=== PATIENT | male | born 1960 | race Hispanic/Latino ===

== ENCOUNTER 2017-10-12 16:02 | Inpatient (IN) | payer MEDICAID, OTHER ==
[~2017-10-12] VITALS: Ht 160 cm; Wt 93.1 kg
[~2017-10-12 16:02] MED LIST: ACETAMINOPHEN325 M1 PO; AZILECT1 MG PO; CARBIDOPA-LEVO1 EAC1 PO; DIOVAN320 MG PO; ESIDRIX25 MG PO; Multivitamins/Minerals PO; NYAMYC15 GM TOP; REQUIP1 MG PO; ROPINIROLE HCL1 MG PO; SINEMET 25-1001 EACH PO
[2017-10-12] MEDS ORDERED: SODIUM CHLORIDE 0.9% 1000ML 1,000 ML ONE (16:58)
[2017-10-12] MEDS ORDERED: AZILECT1 MG PO (17:00)
[2017-10-12] MEDS ORDERED: SODIUM CHLORIDE 0.9% 1000ML 1,000 ML IV SCH (17:00)
[2017-10-12] MEDS ORDERED: RYTARY PO (17:00)
--- NOTE | 2017-10-12 17:02 | Diagnostic Imaging Report ---
Examination: CT BRAIN WITHOUT CONTRAST History:Left-sided weakness. Evaluate for stroke. Comparison studies:None Technique: Axial images were obtained from the skull base to the vertex. Coronal and sagittal images reconstructed from the axial data. Intravenous contrast: None Findings: Scalp: No abnormalities. Bones: No fractures, blastic or lytic lesions. Brain sulci: Appropriate for age. Ventricles: Normal in size and configuration. No hydrocephalus. Extra-axial space: No abnormalities. Parenchyma: No masses, hemorrhage, or acute or chronic cortical based vascular insults. Sellar/suprasellar region: No abnormalities. Craniocervical junction: Patent foramen magnum. No Chiari one malformation. Incidental findings: None. Impression: No intracranial abnormalities. Signed by: Dr. Melva Dupree M.D. on 10/12/2017 4:59 PM
[2017-10-12 17:06] LABS: INR 0.92; PROTHROMBIN TIME 12.8 seconds (11.9-14.5)
[2017-10-12] MEDS ORDERED: LABETALOL HCL IV 5 MG/ML 20ML MDV IV STA (17:08)
[2017-10-12 17:17] LABS: ALANINE AMINOTRANSFERASE 13 IU/L (0-55); ALBUMIN 4.1 g/dL (3.5-5.0); ALBUMIN/GLOBULIN RATIO 0.9 (0.8-2.0); ALKALINE PHOSPHATASE 94 IU/L (40-150); BLOOD UREA NITROGEN 28 mg/dL (7-26); BUN/CREATININE RATIO 28 (6-25); CARBON DIOXIDE 25 mmol/L (22-29); CHLORIDE 107 mmol/L (98-107); CREATINE KINASE 290 IU/L (30-200); EST GLOMERULAR FILTRATION RATE > 60 ML/MIN (60-); GLUCOSE 126 mg/dL (74-118); SODIUM 142 mmol/L (136-145)
[2017-10-12 17:23] LABS: TROPONIN I 0.021 ng/mL (0-0.300)
[2017-10-12 17:25] LABS: BASOPHILS # (AUTO) 0.1 (0.0-0.1); BASOPHILS % 0.4 % (0.0-1.0); EOSINOPHILS % 0.2 % (0.0-6.0); HEMATOCRIT 48.9 % (38.2-49.6); HEMOGLOBIN 16.2 g/dL (14.0-18.0); LYMPHOCYTES # (AUTO) 1.3 (1.0-3.2); LYMPHOCYTES % 9.3 % (18.0-39.1); MEAN CORPUSCULAR HEMOGLOBIN 29.5 pg (28-32); MEAN CORPUSCULAR HGB CONC 33.1 g/dL (31-35); MEAN CORPUSCULAR VOLUME 88.9 fL (81-99); MONOCYTES # (AUTO) 1.2 (0.2-0.8); MONOCYTES % 9.2 % (4.4-11.3); NEUTROPHILS # (AUTO) 10.9 (2.1-6.9); NEUTROPHILS % 80.6 % (38.7-80.0); PLATELET COUNT 290 x10e3/uL (140-360)
[2017-10-12] MEDS ORDERED: ASPIRIN 81 MG CHEW TAB PO ONE (18:00)
[2017-10-12] MEDS: LABETALOL HCL IV 5 MG/ML 20ML MDV IV PRN (22:44)
[2017-10-13] VITALS (8 sets, daily range): BP systolic 150–176; BP diastolic 106–129
[2017-10-13] MEDS ORDERED: VALSARTAN 320 MG PO SCH (09:00)
[2017-10-13] MEDS: RASAGILINE 1 MG TAB PO SCH (09:10)
[2017-10-13] MEDS: ROPINIROLE HCL 1 MG TAB PO SCH ×3 (09:10→23:08)
[2017-10-13 09:23] LABS: BASOPHILS # (AUTO) 0.1 (0.0-0.1); BASOPHILS % 0.8 % (0.0-1.0); EOSINOPHILS # (AUTO) 0.4 (0.0-0.4); EOSINOPHILS % 4.7 % (0.0-6.0); HEMATOCRIT 45.6 % (38.2-49.6); HEMOGLOBIN 14.7 g/dL (14.0-18.0); LYMPHOCYTES # (AUTO) 1.6 (1.0-3.2); LYMPHOCYTES % 17.4 % (18.0-39.1); MEAN CORPUSCULAR HEMOGLOBIN 29.2 pg (28-32); MEAN CORPUSCULAR HGB CONC 32.2 g/dL (31-35); MEAN CORPUSCULAR VOLUME 90.7 fL (81-99); MONOCYTES # (AUTO) 0.9 (0.2-0.8); MONOCYTES % 9.5 % (4.4-11.3); NEUTROPHILS % 67.4 % (38.7-80.0); PLATELET COUNT 240 x10e3/uL (140-360); RED BLOOD COUNT 5.03 x10e6/uL (4.3-5.7); RED CELL DISTRIBUTION WIDTH 13.2 % (11.7-14.4)
[2017-10-13 09:41] LABS: ANION GAP 12.7 mmol/L (8-16); BLOOD UREA NITROGEN 19 mg/dL (7-26); BUN/CREATININE RATIO 23 (6-25); CALCIUM 8.8 mg/dL (8.4-10.2); CARBON DIOXIDE 25 mmol/L (22-29); CHLORIDE 108 mmol/L (98-107); CHOL/HDL RATIO 3.4 (3.9-4.7); CHOLESTEROL 165 MD/DL (0-199); CREATININE, SERUM 0.81 mg/dL (0.72-1.25); EST GLOMERULAR FILTRATION RATE > 60 ML/MIN (60-); GLUCOSE 169 mg/dL (74-118); HDL CHOLESTEROL 48 MG/DL (40-60); LDL CHOLESTEROL 107 MG/DL (60-130); MAGNESIUM 1.8 MG/DL (1.3-2.1); POTASSIUM 3.7 mmol/L (3.5-5.1); SODIUM 142 mmol/L (136-145); TRIGLYCERIDES 50 MG/DL (0-149)
[2017-10-13 10:01] LABS: THYROID STIMULATING HORMONE 0.639 uIU/mL (0.350-4.940)
[2017-10-13] MEDS: HYDROCHLOROTHIAZIDE 25 MG TAB PO SCH (10:55)
[2017-10-13] MEDS: VALSARTAN 160 MG TAB PO SCH (10:55)
[2017-10-13] MEDS: CARBIDOPA/LEVODOPA 25/100 TAB PO SCH ×2 (10:55→17:53)
[2017-10-13] MEDS: ACETAMINOPHEN 325 MG TAB PO PRN ×2 (10:56→20:00)
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
[2017-10-13] MEDS: CARVEDILOL 12.5 MG TAB PO SCH ×2 (14:00→17:53)
[2017-10-13] MEDS: FAMOTIDINE 20 MG TAB PO SCH ×2 (14:20→17:53)
--- NOTE | 2017-10-13 16:47 | Diagnostic Imaging Report ---
Exam: History: Weakness, left-sided facial droop Comparison studies: Head CTs of 10/12/2017 and 06/30/2017 Technique: Sagittal T2; axial DWI, FLAIR, MPGR, T1, Coronal T2 FLAIR. Intravenous contrast: None Findings: Limitations: There is mild distortion due to susceptibility artifact on the more inferior cuts of the axial DWI sequence.. Scalp: Normal in signal. No masses. Bone marrow: Normal in signal intensity. Brain sulci: Appropriate for age. Ventricles: Normal in size. No hydrocephalus. Extra axial spaces: Incidental mildly prominent extra-axial space of CSF density along the right postcentral sulcus may represent incidental arachnoid cyst which does not result in significant mass effect or variant prominent sulcus. No other mass. No hemorrhage. No hemorrhage. Parenchyma: A few scattered T2 FLAIR hyperintense foci in the supratentorial white matter are nonspecific but most compatible with chronic small vessel ischemic changes. No mass or hemorrhage. No gross abnormal restricted diffusion is seen on the DWI sequence which is somewhat limited by susceptibility artifact. Suprasellar region: No abnormalities. Craniocervical junction: Patent foramen magnum. No Chiari Chiari reformation. Vessels: Normal flow-voids in the arteries and sinuses. IMPRESSION: 1. No acute intracranial abnormalities. 2. Mild supratentorial chronic microvascular ischemic changes. Signed by: Dr. Christian Pinto M.D. on 10/13/2017 4:43 PM
[2017-10-13] MEDS: ENOXAPARIN SOD INJ 40 MG/0.4 ML SYR SC SCH (17:53)
[2017-10-13 18:39] LABS: BILIRUBIN,URINE NEGATIVE (NEGATIVE); KETONES,URINE NEGATIVE (NEGATIVE); LEUKOCYTE ESTERASE ,URINE NEGATIVE (NEGATIVE); NITRITE,URINE NEGATIVE (NEGATIVE); PROTEIN,URINE DIPSTICK NEGATIVE (NEGATIVE); URINE UROBILINOGEN 0.2 mg/dL (0.2 - 1)
[2017-10-13 18:42] LABS: CLARITY,URINE SL CLOUDY (CLEAR); COLOR,URINE YELLOW (YELLOW)
[2017-10-13 18:57] LABS: EPITHELIAL CELLS,URINE FEW /LPF; RBC,URINE 0-5 /HPF (0-5); YEAST,URINE RARE
[2017-10-13] MEDS: LABETALOL HCL IV 5 MG/ML 20ML MDV IV PRN (19:25)
[2017-10-13] MEDS ORDERED: ONDANSETRON HCL INJ 2 MG/ML VIAL IV PRN (21:00)
[2017-10-13] MEDS: MORPHINE SULFATE 4 MG/ML SYR IV PRN (21:06)
[2017-10-14] VITALS (22 sets, daily range): BP systolic 113–196; BP diastolic 78–129
[2017-10-14] MEDS: HYDROCODONE/APAP 7.5MG-325MG 1 EA TAB PO PRN ×2 (00:02→05:57)
[2017-10-14] MEDS: FAMOTIDINE 20 MG TAB PO SCH ×2 (05:57→16:33)
[2017-10-14] MEDS: ROPINIROLE HCL 1 MG TAB PO SCH ×3 (05:57→17:21)
[2017-10-14 06:48] LABS: BASOPHILS # (AUTO) 0.1 (0.0-0.1); BASOPHILS % 0.9 % (0.0-1.0); HEMATOCRIT 45.4 % (38.2-49.6); HEMOGLOBIN 14.8 g/dL (14.0-18.0); LYMPHOCYTES # (AUTO) 2.2 (1.0-3.2); MEAN CORPUSCULAR HEMOGLOBIN 29.5 pg (28-32); MEAN CORPUSCULAR HGB CONC 32.6 g/dL (31-35); MEAN CORPUSCULAR VOLUME 90.4 fL (81-99); MONOCYTES # (AUTO) 1.1 (0.2-0.8); MONOCYTES % 10.9 % (4.4-11.3); NEUTROPHILS # (AUTO) 5.5 (2.1-6.9); NEUTROPHILS % 55.9 % (38.7-80.0); PLATELET COUNT 264 x10e3/uL (140-360); RED BLOOD COUNT 5.02 x10e6/uL (4.3-5.7); RED CELL DISTRIBUTION WIDTH 13.2 % (11.7-14.4)
[2017-10-14 07:12] LABS: ANION GAP 11.6 mmol/L (8-16); BLOOD UREA NITROGEN 19 mg/dL (7-26); BUN/CREATININE RATIO 24 (6-25); CALCIUM 9.1 mg/dL (8.4-10.2); CARBON DIOXIDE 26 mmol/L (22-29); CHLORIDE 106 mmol/L (98-107); CREATININE, SERUM 0.79 mg/dL (0.72-1.25); EST GLOMERULAR FILTRATION RATE > 60 ML/MIN (60-); GLUCOSE 110 mg/dL (74-118); POTASSIUM 3.6 mmol/L (3.5-5.1); SODIUM 140 mmol/L (136-145)
[2017-10-14] MEDS ORDERED: INFLUENZA VIRUS VAC SPLIT INJ 0.5 ML SYR IM ONE (08:00)
[2017-10-14] MEDS: CARBIDOPA/LEVODOPA 25/100 TAB PO SCH ×3 (09:00→21:56)
[2017-10-14] MEDS: HYDROCHLOROTHIAZIDE 25 MG TAB PO SCH (09:00)
[2017-10-14] MEDS: RASAGILINE 1 MG TAB PO SCH (09:00)
[2017-10-14] MEDS: VALSARTAN 160 MG TAB PO SCH (09:00)
[2017-10-14] MEDS: CARVEDILOL 12.5 MG TAB PO SCH ×2 (09:00→16:33)
[2017-10-14] MEDS ORDERED: HYDRALAZINE HCL 20 MG/ML VIAL IV PRN ×2 (09:30→14:00)
[2017-10-14] MEDS: LISINOPRIL 10 MG TAB PO SCH (09:48)
--- NOTE | 2017-10-14 11:24 | Consultation ---
DATE OF CONSULTATION: NEUROLOGICAL CONSULTATION REASON FOR CONSULTATION: Generalized weakness. This 56-year-old male is well known to me from previous admission in June with similar symptoms. At this time, he stated that he has been feeling generalized weak. He was brought to the emergency room by the daughter. The question was probable weakness on the left side. There was no headaches. No dizziness. No speech. No swallowing difficulty. The patient has moderate to advanced Parkinson disease. He has been on multiple medications, including Rytary 3 times a day. Has been taking also Azilect 1 mg a day and ropinirole. He does not remember the doses. He is taking once twice a day. Last time when he came in June, he has not been taking the medications because he cannot afford the medicine. Now, he says he has been taking his medication regularly. Apparently, does not do exercises on a regular basis. He denies any speech or swallowing difficulty. PAST HISTORY: Long-standing hypertension. Apparently, he had a mild stroke 3 years ago without any residual deficit. History of Parkinson disease. ALLERGIES: NONE KNOWN. FAMILY HISTORY: Noncontributory. LIST OF MEDICATIONS: He has been taking is Valsartan 325 mg a day, Tylenol as needed. REVIEW OF SYSTEMS: There is no headaches. No fever. No chills. No cough. No abdominal pain. No diarrhea. No nausea or vomiting. PHYSICAL EXAMINATION NEURO: The patient is [place]. He is alert. He is oriented times 3. Speech is clear. No dysarthria. No dysphagia. Cranial nerves: Pupils are both equal and reactive. Extraocular movements were full. Visual field was normal. No facial weakness. Facial sensation normal. Tongue protrudes in the midline. Palate moves normal. The patient does not have any resting tremor. There is a moderate bradykinesia with decreased rapid movements in both hands and both feet. Generalized rigidity. The patient is able to elevate both arms against gravity without any difficulty. Motor strength shows no weakness in either proximal or distal muscles in both upper and lower extremities. Deep tendon reflexes in the triceps, biceps and radialis are 2+. Knee jerk is 2+. Ankle jerk 1+. Plantar stimulation down bilaterally. HEENT: Head is normocephalic. NECK: Supple. Carotid pulsations were present bilaterally. There was no bruit. GAIT: Deferred. LABORATORY WORKUP: CBC on admission shows a white count of 13,054, and today is 9900 with a hemoglobin of 14.8, hematocrit 45.4, and platelets 264,000. Chemistry: Sodium, potassium and chloride were all normal. BUN is 19, creatinine 0.79, estimated GFR greater than 60. Calcium is 9.1. Liver enzymes are all normal. Total cholesterol 165, triglycerides 50, LDL 107. Urinalysis has 2+ blood, protein negative, wbcs none, and bacteria none. The patient had MRI of the brain, which shows no acute pathology. Mild supratentorial growth and microvascular ischemic changes bilaterally. IMPRESSION 1. Mild to advanced Parkinson disease. 2. Hypertension. There is no evidence to suspect any cerebrovascular event at all. I think the symptoms seem to be related to Parkinson. I do not know how much exercise this patient does, but I think he needs to do exercises and continue taking his medications, and not to change the doses of the medications. We are going to call physical therapy for ambulation and go from there. I will be discussing with the attending physician for further options. Job#: [id number] AL
[2017-10-14] MEDS: LABETALOL HCL IV 5 MG/ML 20ML MDV IV PRN (13:20)
[2017-10-14] MEDS: ENOXAPARIN SOD INJ 40 MG/0.4 ML SYR SC SCH (16:33)
[2017-10-14] MEDS: MORPHINE SULFATE 4 MG/ML SYR IV PRN ×2 (16:42→22:33)
[2017-10-14] MEDS ORDERED: LISINOPRIL 10 MG TAB PO SCH (21:00)
[2017-10-15 00:07] VITALS: BP 107/67
[2017-10-15] MEDS: ROPINIROLE HCL 1 MG TAB PO SCH ×3 (00:57→12:00)
[2017-10-15 06:08] VITALS: BP 92/50
[2017-10-15 07:08] LABS: BASOPHILS # (AUTO) 0.1 (0.0-0.1); BASOPHILS % 0.5 % (0.0-1.0); EOSINOPHILS % 7.9 % (0.0-6.0); HEMATOCRIT 44.5 % (38.2-49.6); HEMOGLOBIN 14.6 g/dL (14.0-18.0); LYMPHOCYTES # (AUTO) 1.7 (1.0-3.2); LYMPHOCYTES % 13.3 % (18.0-39.1); MEAN CORPUSCULAR HEMOGLOBIN 29.6 pg (28-32); MEAN CORPUSCULAR HGB CONC 32.8 g/dL (31-35); MEAN CORPUSCULAR VOLUME 90.3 fL (81-99); MONOCYTES # (AUTO) 1.5 (0.2-0.8); MONOCYTES % 11.6 % (4.4-11.3); NEUTROPHILS # (AUTO) 8.6 (2.1-6.9); NEUTROPHILS % 66.5 % (38.7-80.0); PLATELET COUNT 276 x10e3/uL (140-360); RED BLOOD COUNT 4.93 x10e6/uL (4.3-5.7); RED CELL DISTRIBUTION WIDTH 13.2 % (11.7-14.4)
[2017-10-15 07:25] LABS: ANION GAP 13.5 mmol/L (8-16); CALCIUM 9.4 mg/dL (8.4-10.2); CREATININE, SERUM 1.66 mg/dL (0.72-1.25); POTASSIUM 3.5 mmol/L (3.5-5.1)
[2017-10-15 08:39] VITALS: BP 115/72
[2017-10-15] MEDS: FAMOTIDINE 20 MG TAB PO SCH (08:47)
[2017-10-15] MEDS: HYDROCHLOROTHIAZIDE 25 MG TAB PO SCH (08:48)
[2017-10-15] MEDS: RASAGILINE 1 MG TAB PO SCH (08:48)
[2017-10-15] MEDS: CARBIDOPA/LEVODOPA 25/100 TAB PO SCH ×2 (08:48→14:48)
[2017-10-15] MEDS: CARVEDILOL 12.5 MG TAB PO SCH (08:48)
[2017-10-15] MEDS: VALSARTAN 160 MG TAB PO SCH (08:48)
[2017-10-15] MEDS: LISINOPRIL 10 MG TAB PO SCH (08:48)
[2017-10-15] MEDS ORDERED: NIFEDIPINE CR 30 MG TAB PO SCH (09:00)
[2017-10-15] MEDS ORDERED: FLUCONAZOLE 200 MG/100 ML 100 ML IV SCH (09:00)
[2017-10-15] MEDS ORDERED: TYLENOL WITH C1 EACH PO (12:14)
[2017-10-15] MEDS ORDERED: ESIDRIX25 MG PO (12:14)
[2017-10-15] MEDS ORDERED: COREG12.5 MG PO (12:14)
[2017-10-15] MEDS ORDERED: LISINOPRIL10 MG PO (12:14)
[2017-10-15] MEDS ORDERED: CARBIDOPA-LEVO1 EAC1 PO (12:14)
[2017-10-15] MEDS ORDERED: SODIUM CHLORIDE 0.9% 1000ML 1,000 ML IV ONE (12:15)
[2017-10-15 12:18] VITALS: BP 147/91
[2017-10-15] MEDS ORDERED: RYTARY PO SCH (15:00)
--- NOTE | 2017-10-16 04:39 | Discharge Summary ---
ADMITTING DIAGNOSES 1. Left-sided weakness. 2. Parkinson. 3. Hypertension. DISCHARGE DIAGNOSES 1. Left-sided weakness. 2. Parkinson. 3. Hypertension. 4. Rule out stroke. HISTORY: Patient has a history of hypertension, mild stroke about 3 years ago, and advanced Parkinson disease. HOSPITAL COURSE: A 56-year-old male presented with left-sided weakness worsening over the last 2 days. He said it seems to be correlated with the change in dose of his Sinemet. He had a similar admission last year for generalized weakness and inability to walk, which was related to medication. On admission, CT of the brain and MRI of the brain was done, which were both negative. Neuro was consulted, who had no new recommendation. He recommended to keep the patient on the current medication dosing. Hypertension, patient was on valsartan at home and Coreg added as well to control hypertension. Per neuro recommendation, patient was discharged home. After speaking with the daughter with whom he lives with, she said that he does not have insurance, so they will decline PT/OT at home, as well as a SNF evaluation for physical therapy. She said, they cannot afford it and he stays at home using his walker. According to the nurses, they were having to feed him because he said he could not feed himself and then, upon discharge, patient got up out of the bed and dressed himself with no issues. Patient will be discharged home with 1. Carbidopa/levodopa 25 and 100 t.i.d. 2. Coreg 12.5 b.i.d. 3. Lisinopril 30 daily. 4. Home medications. He will follow up with his primary care in 7-10 days. Daughter is aware of discharge plan and approved. Dictated By: Jumana Jaimes NP DAVIE FARFAN MD Job#: [id number] CQ
[2017-10-16] MEDS ORDERED: LISINOPRIL 10 MG TAB PO SCH (09:00)
== END 2017-10-15 14:49 | disposition home or self-care (01) | DRG 948 ==
LOC: ER 16:02 → ERHOLD 18:39 → IMCU 10-13 21:57 → MED/SURG 10-14 14:14
PROVIDERS: ADMIT Internal Medicine; ATTEND Internal Medicine
DX: R53.1 Weakness (principal); G20 Parkinson's disease; B37.49 Other urogenital candidiasis; T42.8X5A Adverse effect of antiparkinsonism drugs and other central muscle-tone depressants, initial encounter; R29.810 Facial weakness; I10 Essential (primary) hypertension; Z88.8 Allergy status to other drugs, medicaments and biological substances
CPT/HCPCS: 36415; 70450; 70551; 80048; 80053; 80061; 81001; 82550; 82553; 83735; 83880; 84443; 84484; 85025; 85610; 85730; 87086; 93005; 93880; 97139; 99284; J0360; J1450; J1650; J2270; J2405; J7030

== ENCOUNTER 2018-11-28 23:26 | Emergency (ER) | payer SELFPAY ==
[~2018-11-28] VITALS: Ht 160 cm; Wt 93.0 kg
[~2018-11-28 23:26] MED LIST changes: +COREG12.5 MG PO; +LISINOPRIL10 MG PO; +RYTARY PO; +TYLENOL WITH C1 EACH PO
--- OUTSIDE RECORDS SUMMARY | 2018-11-28 23:29 | XMS REPORT ---
Author Author [facility] Address Unknown Phone Unavailable Care Team Providers Care [employer]er Name Role Phone DAVIE FARFAN Unavailable Unavailable Problems This patient has no known problems. Allergies, Adverse Reactions, Alerts This patient has no known allergies or adverse reactions. Medications This patient has no known medications. Results Test Description Test Time Test Comments Text Results Atomic Results Result Comments MRI BRAIN WO [place] [address] Patient Name: MIKE ALEJO MR #: [id number] : 1960 Age/Sex: 56/M Req #: [id number] Adm Physician: DAVIE FARFAN MD Ordered by: TRENT FOSTER MD Report #: [id number] Location: [facility] Room/Bed: [place] [address] Procedure: [id number] MRI/MRI BRAIN WO Exam Date: 10/13/17 Exam Time: 1200 REPORT STATUS: Signed Exam: History: Weakness, left-sided facial droop Comparison studies: Head CTs of 10/12/2017 and 06/30/2017 Technique: Sagittal T2; axial DWI, FLAIR, MPGR, T1, Coronal T2 FLAIR. Intravenous contrast: None Findings: Limitations: There is mild distortion due to susceptibility artifact on the more inferior cuts of the axial DWI sequence.. Scalp: Normal in signal. No masses. Bone marrow: Normal in signal intensity. Brain sulci: Appropriate for age. Ventricles: Normal in size. No hydrocephalus. Extra axial spaces: Incidental mildly prominent extra-axial space of CSF density along the right postcentral sulcus may represent incidental arachnoid cyst which does not result in significant mass effect or variant prominent sulcus. No other mass. No hemorrhage. No hemorrhage. Parenchyma: A few scattered T2 FLAIR hyperintense foci in the supratentorial white matter are nonspecific but most compatible with chronic small vessel ischemic changes. No mass or hemorrhage. No gross abnormal restricted diffusion is seen on the DWI sequence which is somewhat limited by susceptibility artifact. Suprasellar region: No abnormalities. Craniocervical junction: Patent foramen magnum. No Chiari Chiari reformation. Vessels: Normal flow-voids in the arteries and sinuses. IMPRESSION: 1. No acute intracranial abnormalities. 2. Mild supratentorial chronic micr ovascular ischemic changes. Signed by: Dr. Huey Pinto M.D. on 10/13/2017 4:43 PM Dictated By: HUEY PINTO MD 42 Transcribed By: CATALINA on 10/13/171642 COPY TO: TRENT FOSTER MD CT BRAIN WO [place] [address] Patient Name: MIKE ALEJO MR #: [id number] : 1960 Age/Sex: 56/M Req #: [id number] Adm Physician: Ordered by: TRENT FOSTER MD Report #: [id number] Location: ER Room/Bed: Procedure: [id number] CT/CT BRAIN WO Exam Date: 10/12/17 Exam Time: 1608 REPORT STATUS: Signed Examination: CT BRAIN WITHOUT CONTRAST History:Left-sided weakness. Evaluate for stroke. Comparison studies:None Technique: Axial images were obtained from the skull base to the vertex. Coronal and sagittal images reconstructed from the axial data. Intravenous contrast: None Findings: Scalp: No abnormalities. Bones: No fractures, blastic or lytic lesions. Brain sulci: Appropriate for age. Ventricles: Normal in size and configuration. No hydrocephalus. Extra-axial space: No abnormalities. Parenchyma: No masses, hemorrhage, or acute or chronic cortical based vascular insults. Sellar/suprasellar region: No abnormalities. Craniocervical junction: Patent foramen magnum. No Chiari one malformation. Incidental findings: None. Impression: No intracranial abnormalities. Signed by: Dr. Melva Dupree M.D. on 10/12/2017 4:59 PM Dictated By: MELVA KOROMA MD 58 Transcribed By: CATALINA on 10/12/171658 COPY TO: TRENT FOSTER MD BA. SWALLOW [place] [address] Patient Name: MIKE ALEJO MR #: [id number] : 1960 Age/Sex: 56/M Req #: [id number] [facility] Physician: DAVIE FARFAN MD Ordered by: DAVIE FARFAN MD Report #: [id number] Location: [facility] Room/Bed: [place] [address] Procedure: [id number] DX/MODIFIED BA. SWALLOW Exam Date: 07/05/17 Exam Time: 0950 REPORT STATUS: Signed PROCEDURE: X-RAY MODIFIED BARIUM SWALLOW COMPARISON: None. INDICATIONS: Syncope. DISCUSSION: Fluoroscopic examination was performed in conjunction with speech pathology, during swallowing of a variety of thin and thick liquid consistencies. CONCLUSION: No penetration or aspiration. Please see the report from speech pathology for complete details. D ictated by: Lin Mondragon M.D. on 07/05/2017 at 12:21 Electronically approved by: Lin Mondragon M.D. on 07/05/2017 at 12:21 Dictated By: LIN MONDRAGON MD 1221 Transcribed By: NANCY on 07/05/17 1221 COPY TO: DAVIE FARFAN MD HUMERUS RIGHT 2+VIEWS [place] [address] Patient Name: MIKE ALEJO MR #: [id number] : 1960 Age/Sex: 56/M Req #: [id number] Adm Physician: DAVIE FARFAN MD Ordered by: DAVIE FARFAN MD Report #: [id number] Location: [facility] Room/Bed: [place] [address] Procedure: [id number] DX/HUMERUS RIGHT 2+VIEWS Exam Date: Exam Time: REPORT STATUS: Signed PROCEDURE: X-RAY RIGHT HUMERUS, TWO OR MORE VIEWS COMPARISON: None. INDICATIONS: RECENT FALL, RIGHT HUMERUS PAIN FINDINGS: There are no fractures, dislocations, lytic or blastic lesions. The bones are well-mineralized. The soft-tissues are unremarkable. CONCLUSION: Normal right humerus radiograph. Dictated by: Abdoulaye Freedman M.D. on 07/04/2017 at 17:25 Electronically approved by: Abdoulaye Freedman M.D. on 07/04/2017 at 17:25 Dictated By: ABDOULAYE FREEDMAN MD 8840 Transcribed By: NANCY on 07/04/171724 COPY TO: DAVIE FARFAN MD CHEST SINGLE (PORTABLE) [place] [address] Patient Name: MIKE ALEJO MR #: [id number] : 1960 Age/Sex: 56/M Req #: [id number] Adm Physician: Ordered by: DC MALIK MD Report #: [id number] Location: ER Room/Bed: Procedure: [id number] DX/CHEST SINGLE (PORTABLE) Exam Date: 06/30/17 Exam Time: 2015 REPORT STATUS: Signed Examination: Single AP view of the chest. COMPARISON: None. INDICATION: Status post fall IMPRESSION: 1. Lines and Tubes: None 2. Lungs are hypoinflated but grossly clear. No consolidation or effusion. 3. Cardiomediastinal silhouette is normal. Pulmonary vasculature is normal. 4. No acute bony abnormalities. Signed by: Dr. Pankaj Orta M.D. on 06/30/2017 8:44 PM Dictated By: PANKAJ ORTA MD 43 Transcribed By: CATALINA on 06/30/172043 COPY TO: DC MALIK MD CT BRAIN WO [place] [address] Patient Name: MIKE ALEJO MR #: [id number] : 1960 Age/Sex: 56/M Req #: [id number] Adm Physician: Ordered by: DC MALIK MD Report #: [id number] Location: ER Room/Bed: Procedure: [id number] CT/CT BRAIN WO Exam Date: 06/30/17 Exam Time: 2015 REPORT STATUS: Signed Examination: CT BRAIN WITHOUT CONTRAST History:Syncope. Comparison studies:None Technique: Axial images were obtained from the skull base to the vertex. Coronal and sagittal images reconstructed from the axial data. Intravenous contrast: None Findings: Scalp: No abnormalities. Bones: No fractures, blastic or lytic lesions. Brain sulci: Appropriate for age. Ventricles: Normal in size and configuration. No hydrocephalus. Extra-axial space: No abnormalities. Parenchyma: No abnormal densities. No masses, hemorrhage, acute or chronic vascular insults. Sellar/suprasellar region: Partially CSF filled. Craniocervical junction: Patent foramen magnum. No Chiari one malformation. Incidental findings: None. Impression: No intracranial abnormalities. Signed by: Dr. Melva Dupree M.D. on 06/30/2017 8:54 PM Dictated By: MELVA KOROMA MD 53 Transcribed By: CATALINA on 06/30/172053 COPY TO: DC MALIK MD
--- OUTSIDE RECORDS SUMMARY | 2018-11-28 23:29 | XMS REPORT | Summary of Care ---
Author Organization Unknown Address Unknown Phone Unavailable Encounter [facility] Mikal(STANLEY) [id number] Date(s): 05/01/14 - 05/02/14 [facility] [address] [place] [address] Discharge Diagnosis: Muscle tear Discharge Disposition: Home Physician Attending: Ivan Ospina MD Reason for Visit LEG PAIN Vital Signs Most recent to 1 2 oldest [Reference Range]: Temperature Oral 97.6 DegF 98.1 DegF [96.4-99.1 DegF] (05/02/14 3:11 AM) (05/01/14 10:58 PM) Systolic Blood 124 mmHg 122 mmHg Pressure [90-140 (05/02/14 3:11 AM) (05/01/14 10:58 PM) mmHg] Diastolic Blood 91 mmHg 85 mmHg Pressure [60-90 *HI* (05/01/14 10:58 PM) mmHg] (05/02/14 3:11 AM) Respiratory Rate 18 BRMIN 18 BRMIN [14-20 BRMIN] (05/02/14 3:11 AM) (05/01/14 10:58 PM) Peripheral Pulse 56 bpm 69 bpm Rate [60-100 bpm] *LOW* (05/01/14 10:58 PM) (05/02/14 3:11 AM) Problem List Condition Effective Dates Status Health Status Informant HTN Resolved (hypertension)(Confi rmed) Parkinsons Resolved disease(Confirmed) Allergies, Adverse Reactions, Alerts Substance Reaction Severity Status Bactrim Active [place] Active Medications Motrin 600 mg, Route: PO, Drug form: TAB, ONCE, Dosing Weight 93.182, kg, Priority: STA T, Start date: 05/02/14 0:28:00, Stop date: 05/02/14 0:28:00 Start Date: 05/02/14 Stop Date: 05/02/14 Status: Completed Vicoprofen 7.5 mg-200 mg oral tablet 1 tab, Route: PO, Dosing Weight 93.182, kg, ONCE, Start date: 05/02/14 0:18:00, Stop date: 05/02/14 0:18:00 Start Date: 05/02/14 Stop Date: 05/02/14 Status: Discontinued Medications Administered During Your Visit No data available for this section Immunizations No data available for this section Social History Social History Type Response Alcohol Use: Current, Frequency: 1-2 times per month Smoking Status Never smoker, Exposure to Tobacco Smoke None, Cigarette Smoking Last 365 Days No, Reg Smoking Cessation Counseling No
--- OUTSIDE RECORDS SUMMARY | 2018-11-28 23:29 | XMS REPORT | Summary of Care ---
Author Organization Unknown Address Unknown Phone Unavailable Encounter HQ Mikal(STANLEY) [id number] Date(s): 04/11/14 - 04/13/14 [facility] [address] [place] [address] Discharge Disposition: Home Physician Attending: Erwin Olivera MD Physician Admitting: Erwin Olivera MD Reason for Visit CVA Vital Signs 1 2 3 Most recent to oldest [Reference Range]: 165.1 cm (04/11/14 8:02 PM) 165.1 cm (04/11/14 2:28 PM) Height 98.2 DegF (04/13/14 8:02 PM) 98.7 DegF (04/13/14 4:54 PM) 98.3 DegF (04/13/14 12:04 PM) Temperature Oral [96.4-99.1 DegF] 144 mmHg *HI* (04/13/14 8:02 PM) 149 mmHg *HI* (04/13/14 4:54 PM) 148 mmHg *HI* (04/13/14 12:04 PM) Systolic Blood Pressure [90-140 mmHg] 88 mmHg (04/13/14 8:02 PM) 89 mmHg (04/13/14 4:54 PM) 99 mmHg *HI* (04/13/14 12:04 PM) Diastolic Blood Pressure [60-90 mmHg] 16 BRMIN (04/13/14 8:02 PM) 14 BRMIN (04/13/14 4:54 PM) 14 BRMIN (04/13/14 12:04 PM) Respiratory Rate [14-20 BRMIN] 78 bpm (04/13/14 8:02 PM) 78 bpm (04/13/14 4:54 PM) 75 bpm (04/13/14 12:04 PM) Peripheral Pulse Rate [60-100 bpm] 93.182 kg (04/11/14 8:02 PM) 93.182 kg (04/11/14 2:28 PM) Weight 34.19 m2 (04/11/14 8:02 PM) 34.19 m2 (04/11/14 2:28 PM) Body Mass Index Problem List Condition Effective Dates Status Health Status Informant HTN Resolved (hypertension)(Confi rmed) Parkinsons Resolved disease(Confirmed) Allergies, Adverse Reactions, Alerts Substance Reaction Severity Status Bactrim Active Oracle Active Medications aspirin 325 mg, 1 tab, Route: PO, Drug form: TAB, Daily, Dosing Weight 93.182, kg, Start date: 04/12/14 9:00:00, Duration: 30 day, Stop date: 05/11/14 9:00:00 Notes: Take with food. Start Date: 04/12/14 Stop Date: 04/14/14 Status: Discontinued aspirin 325 mg, 1 tab, Route: PO, Drug form: TAB, ONCE, Dosing Weight 93.182, kg, Priori ty: STAT, Start date: 04/11/14 15:44:00, Stop date: 04/11/14 15:44:00 Notes: Take with food. Start Date: 04/11/14 Stop Date: 04/11/14 Status: Completed aspirin 325 mg tablet 325 mg=1 tab, PO, Daily, # 100 tab, 3 Refill(s) Start Date: 04/13/14 Status: Ordered Azilect 0.5 mg, PO, Daily, 0 Refill(s) Start Date: 04/11/14 Stop Date: 04/16/14 Status: Ordered Azilect 1 mg oral tablet 1 mg=1 tab, PO, Daily, # 30 tab, 0 Refill(s) Start Date: 04/11/14 Status: Ordered Diovan 320 mg oral tablet 320 mg=1 tab, PO, Daily, # 30 tab, 0 Refill(s) Start Date: 04/11/14 Status: Ordered enoxaparin 40 mg, 0.4 mL, Route: SUB-Q, Drug form: INJ, [id number], Dosing Weight 93.182, kg, Start date: 04/11/14 20:00:00, Duration: 30 day, Stop date: 05/10/14 20:00:00 Notes: (Same as: Lovenox) Start Date: 04/11/14 Stop Date: 04/14/14 Status: Discontinued hydrochlorothiazide 12.5 mg, PO, Daily, 0 Refill(s) Start Date: 04/11/14 Status: Ordered normal saline 0.9% IV 1,000 mL 1,000 mL, Rate: 100 ml/hr, Infuse over: 10 hr, Route: IV, Dosing Weight 93.182 k g, Total Volume: 1,000, Start date: 04/11/14 19:44:00, Duration: 30 day, Stop da te: 05/11/14 19:43:00 Start Date: 04/11/14 Stop Date: 04/14/14 Status: Discontinued pantoprazole 40 mg, Route: IVP, Drug form: INJ, Before Dinner, Dosing Weight 93.182, kg, Star t date: 04/12/14 16:30:00, Duration: 30 day, Stop date: 05/11/14 16:30:00 Notes: For IV push reconstitute with 10 ml 0.9% sodium chloride and push over 2 minutes. (Same as: Protonix) Start Date: 04/12/14 Stop Date: 04/14/14 Status: Discontinued potassium chloride 20 mEq, 100 mL, Route: IVPB, Drug form: INJ, Q2H, Dosing Weight 93.182, kg, Tota l dose=60 mEq, Start date: 04/11/14 18:00:00, Duration: 3 doses or times, Stop d ate: 04/11/14 22:00:00 Notes: (Same as: KCL) Infuse no faster than 10 mEq/hr if given peripherally. Start Date: 04/11/14 Stop Date: 04/11/14 Status: Completed Saline Flush 0.9% 5 ml, Route: IVP, Drug Form: INJ, Dosing Weight 93.182, kg, PRN, PRN Line Flush, Start date: 04/11/14 15:43:00, Duration: 30 day, Stop date: 05/11/14 15:42:00 Notes: (Same as: BD Posiflush) Start Date: 04/11/14 Stop Date: 04/14/14 Status: Discontinued Saline Flush 0.9% 5 ml, Route: IVP, Drug Form: INJ, Dosing Weight 93.182, kg, PRN, PRN Line Flush, Start date: 04/11/14 20:13:00, Duration: 30 day, Stop date: 05/11/14 20:12:00 Notes: (Same as: BD Posiflush) Start Date: 04/11/14 Stop Date: 04/14/14 Status: Discontinued Saline Flush 0.9% 5 ml, Route: IVP, Drug Form: INJ, Dosing Weight 93.182, kg, Q12H, Start date: 21:00:00, Duration: 30 day, Stop date: 05/11/14 9:00:00 Notes: (Same as: BD Posiflush) Start Date: 04/11/14 Stop Date: 04/14/14 Status: Discontinued simvastatin 40 mg, 1 tab, Route: PO, Drug form: TAB, Bedtime, Dosing Weight 93.182, kg, Star t date: 04/11/14 21:00:00, Duration: 30 day, Stop date: 05/10/14 21:00:00 Notes: (Same as: Zocor) Start Date: 04/11/14 Stop Date: 04/14/14 Status: Discontinued Sinemet 25 mg-100 mg oral tablet 1 tab, Route: NG, Drug Form: ERTAB, Dosing Weight 93.182, kg, TID, Start date: 0 04/12/14 17:00:00, Duration: 30 day, Stop date: 05/12/14 13:00:00 Notes: "Do Not Crush" Take with milk or food. (Same As: Sinemet CR) Start Date: 04/12/14 Stop Date: 04/14/14 Status: Discontinued Sinemet 25 mg-100 mg oral tablet 1 tab, NG, TID, # 30 tab, 3 Refill(s) Start Date: 04/13/14 Status: Ordered Results ELECTROLYTES 1 2 3 Most recent to oldest [Reference Range]: 143 mEq/L (04/13/14 4:21 AM) 141 mEq/L (04/12/14 3:52 AM) 139 mEq/L (04/11/14 3:40 PM) Sodium Lvl [135-145 mEq/L] 3.6 mEq/L (04/13/14 4:21 AM) 3.2 mEq/L *LOW* (04/12/14 3:52 AM) 3.2 mEq/L *LOW* (04/11/14 3:40 PM) Potassium Lvl [3.5-5.1 mEq/L] 107 mEq/L (04/13/14 4:21 AM) 106 mEq/L (04/12/14 3:52 AM) 104 mEq/L (04/11/14 3:40 PM) Chloride Lvl [95-109 mEq/L] 29 mEq/L (04/13/14 4:21 AM) 28 mEq/L (04/12/14 3:52 AM) 27 mEq/L (04/11/14 3:40 PM) CO2 [24-32 mEq/L] 10.6 mEq/L (04/13/14 4:21 AM) 10.2 mEq/L (04/12/14 3:52 AM) 11.2 mEq/L (04/11/14 3:40 PM) AGAP [10.0-20.0 mEq/L] CHEM PANEL 1 2 3 Most recent to oldest [Reference Range]: 0.9 mg/dL (04/13/14 4:21 AM) 0.8 mg/dL (04/12/14 3:52 AM) 0.8 mg/dL (04/11/14 3:40 PM) Creatinine Lvl [0.5-1.4 mg/dL] 98 mL/min/1.73m2 1 *NA* (04/13/14 4:21 AM) 103 mL/min/1.73m2 2 *NA* (04/12/14 3:52 AM) 103 mL/min/1.73m2 3 *NA* (04/11/14 3:40 PM) eGFR 16 mg/dL (04/13/14 4:21 AM) 14 mg/dL (04/12/14 3:52 AM) 13 mg/dL (04/11/14 3:40 PM) BUN [7-22 mg/dL] 18 (04/12/14 3:52 AM) 16 (04/11/14 3:40 PM) B/C Ratio [6-25] 96 mg/dL 4 (04/13/14 4:21 AM) 93 mg/dL 5 (04/12/14 3:52 AM) 89 mg/dL 6 (04/11/14 3:40 PM) Glucose Lvl [70-99 mg/dL] 6.6 g/dL (04/12/14 3:52 AM) 7.1 g/dL (04/11/14 3:40 PM) Total Protein [6.4-8.4 g/dL] 3.2 g/dL *LOW* (04/12/14 3:52 AM) 3.5 g/dL (04/11/14 3:40 PM) Albumin Lvl [3.5-5.0 g/dL] 3.4 g/dL (04/12/14 3:52 AM) 3.6 g/dL (04/11/14 3:40 PM) Globulin [2.0-4.0 g/dL] 0.9 (04/12/14 3:52 AM) 1.0 (04/11/14 3:40 PM) A/G Ratio [0.7-1.6] 8.5 mg/dL (04/13/14 4:21 AM) 8.1 mg/dL *LOW* (04/12/14 3:52 AM) 9.0 mg/dL (04/11/14 3:40 PM) Calcium Lvl [8.5-10.5 mg/dL] 28 unit/L (04/12/14 3:52 AM) 30 unit/L (04/11/14 3:40 PM) ALT [0-65 unit/L] 16 unit/L (04/12/14 3:52 AM) 18 unit/L (04/11/14 3:40 PM) AST [0-37 unit/L] 68 unit/L (04/12/14 3:52 AM) 73 unit/L (04/11/14 3:40 PM) Alk Phos [39-136 unit/L] 0.5 mg/dL (04/12/14 3:52 AM) 0.5 mg/dL (04/11/14 3:40 PM) Bili Total [0.2-1.3 mg/dL] 1Result Comment: The eGFR is calculated using the CKD-EPI formula. In most young, healthy individuals the eGFR will be >90 mL/min/1.73m2. The eGFR declines with age. An eGFR of 60-89 may be normal in some populations, particularly the elderly, for whom the CKD-EPI formula has not been extensively validated. Use of the eGFR is not recommended in the following populations: Individuals with unstable creatinine concentrations, including patients and those with serious co-morbid conditions. Patients with extremes in muscle mass or diet. The data above are obtained from the National Kid[employer] Disease Education Program ( NK[employer]) which additionally recommends that when the eGFR is used in patients with extremes of body mass index for purposes of drug dosing, the eGFR should be mul tiplied by the estimated BMI. 2Result Comment: The eGFR is calculated using the CKD-EPI formula. In most young, healthy individuals the eGFR will be >90 mL/min/1.73m2. The eGFR declines with age. An eGFR of 60-89 may be normal in some populations, particularly the elderly, for whom the CKD-EPI formula has not been extensively validated. Use of the eGFR is not recommended in the following populations: Individuals with unstable creatinine concentrations, including patients and those with serious co-morbid conditions. Patients with extremes in muscle mass or diet. The data above are obtained from the National Kid[employer] Disease Education Program ( NKDEP) which additionally recommends that when the eGFR is used in patients with extremes of body mass index for purposes of drug dosing, the eGFR should be mul tiplied by the estimated BMI. 3Result Comment: The eGFR is calculated using the CKD-EPI formula. In most young, healthy individuals the eGFR will be >90 mL/min/1.73m2. The eGFR declines with age. An eGFR of 60-89 may be normal in some populations, particularly the elderly, for whom the CKD-EPI formula has not been extensively validated. Use of the eGFR is not recommended in the following populations: Individuals with unstable creatinine concentrations, including patients and those with serious co-morbid conditions. Patients with extremes in muscle mass or diet. The data above are obtained from the National Kid[employer] Disease Education Program ( [employer]DEP) which additionally recommends that when the eGFR is used in patients with extremes of body mass index for purposes of drug dosing, the eGFR should be mul tiplied by the estimated BMI. 4Interpretive Data: Adult reference range values reflect the clinical guidelines of the [place] [employer]. 5Interpretive Data: Adult reference range values reflect the clinical guidelines of the [place] [employer]. 6Interpretive Data: Adult reference range values reflect the clinical guidelines of the [place] [employer]. CARDIAC ENZYMES 1 2 3 Most recent to oldest [Reference Range]: 75 unit/L (04/11/14 3:40 PM) Total CK [12-191 unit/L] 0.6 ng/mL (04/11/14 3:40 PM) CK MB [0.5-3.6 ng/mL] 0.8 (04/11/14 3:40 PM) CK MB Index [0.0-2.5] <0.02 ng/mL (04/11/14 3:40 PM) Troponin-I [0.00-0.40 ng/mL] LIPIDS 1 2 3 Most recent to oldest [Reference Range]: 3.04 *LOW* (04/12/14 3:52 AM) CHD Risk [4.00-7.30] 152 mg/dL (04/12/14 3:52 AM) Chol [<=199 mg/dL] 55 mg/dL (04/12/14 3:52 AM) Trig [<=149 mg/dL] 50 mg/dL *LOW* (04/12/14 3:52 AM) HDL [>=61 mg/dL] 91 mg/dL (04/12/14 3:52 AM) LDL (Calculated) [<=99 mg/dL] 11 *NA* (04/12/14 3:52 AM) VLDL SPECIAL CHEMISTRY 1 2 3 Most recent to oldest [Reference Range]: 5.3 % (04/12/14 3:52 AM) Hgb A1C [<=5.6 %] HEMATOLOGY 1 2 3 Most recent to oldest [Reference Range]: 9.0 K/CMM (04/13/14 4:21 AM) 7.9 K/CMM (04/12/14 3:52 AM) 9.2 K/CMM (04/11/14 3:40 PM) WBC [3.7-10.4 K/CMM] 4.42 M/CMM *LOW* (04/13/14 4:21 AM) 4.63 M/CMM *LOW* (04/12/14 3:52 AM) 4.71 M/CMM (04/11/14 3:40 PM) RBC [4.70-6.10 M/CMM] 13.2 g/dL *LOW* (04/13/14 4:21 AM) 13.8 g/dL *LOW* (04/12/14 3:52 AM) 14.2 g/dL (04/11/14 3:40 PM) Hgb [14.0-18.0 g/dL] 39.5 % *LOW* (04/13/14 4:21 AM) 41.3 % *LOW* (04/12/14 3:52 AM) 41.7 % *LOW* (04/11/14 3:40 PM) Hct [42.0-54.0 %] 89.3 fL (04/13/14 4:21 AM) 89.1 fL (04/12/14 3:52 AM) 88.4 fL (04/11/14 3:40 PM) MCV [80.0-94.0 fL] 29.9 pg (04/13/14 4:21 AM) 29.8 pg (04/12/14 3:52 AM) 30.1 pg (04/11/14 3:40 PM) MCH [27.0-31.0 pg] 33.5 g/dL (04/13/14 4:21 AM) 33.4 g/dL (04/12/14 3:52 AM) 34.0 g/dL (04/11/14 3:40 PM) MCHC [32.0-36.0 g/dL] 13.2 % (04/13/14 4:21 AM) 12.9 % (04/12/14 3:52 AM) 12.9 % (04/11/14 3:40 PM) RDW [11.5-14.5 %] 186 K/CMM (04/13/14 4:21 AM) 204 K/CMM (04/12/14 3:52 AM) 218 K/CMM (04/11/14 3:40 PM) Platelet [133-450 K/CMM] 10.0 fL (04/13/14 4:21 AM) 10.0 fL (04/12/14 3:52 AM) 9.8 fL (04/11/14 3:40 PM) MPV [7.4-10.4 fL] 54.1 % (04/13/14 4:21 AM) 56.9 % (04/12/14 3:52 AM) 62.0 % (04/11/14 3:40 PM) Segs [45.0-75.0 %] 27.2 % (04/13/14 4:21 AM) 24.5 % (04/12/14 3:52 AM) 21.5 % (04/11/14 3:40 PM) Lymphocytes [20.0-40.0 %] 8.8 % (04/13/14 4:21 AM) 10.0 % (04/12/14 3:52 AM) 8.4 % (04/11/14 3:40 PM) Monocytes [2.0-12.0 %] 9.2 % *HI* (04/13/14 4:21 AM) 8.0 % *HI* (04/12/14 3:52 AM) 7.3 % *HI* (04/11/14 3:40 PM) Eosinophils [0.0-4.0 %] 0.7 % (04/13/14 4:21 AM) 0.6 % (04/12/14 3:52 AM) 0.8 % (04/11/14 3:40 PM) Basophils [0.0-1.0 %] 4.9 K/CMM (04/13/14 4:21 AM) 4.5 K/CMM (04/12/14 3:52 AM) 5.7 K/CMM (04/11/14 3:40 PM) Segs-Bands # [1.5-8.1 K/CMM] 2.5 K/CMM (04/13/14 4:21 AM) 1.9 K/CMM (04/12/14 3:52 AM) 2.0 K/CMM (04/11/14 3:40 PM) Lymphocytes # [1.0-5.5 K/CMM] 0.8 K/CMM (04/13/14 4:21 AM) 0.8 K/CMM (04/12/14 3:52 AM) 0.8 K/CMM (04/11/14 3:40 PM) Monocytes # [0.0-0.8 K/CMM] 0.8 K/CMM *HI* (04/13/14 4:21 AM) 0.6 K/CMM *HI* (04/12/14 3:52 AM) 0.7 K/CMM *HI* (04/11/14 3:40 PM) Eosinophils # [0.0-0.5 K/CMM] 0.1 K/CMM (04/13/14 4:21 AM) 0.1 K/CMM (04/11/14 3:40 PM) Basophils # [0.0-0.2 K/CMM] 12.8 seconds (04/11/14 3:40 PM) PT [12.0-14.7 seconds] 0.97 7 (04/11/14 3:40 PM) INR [0.85-1.17] 29.5 seconds 8 (04/11/14 3:40 PM) PTT [22.9-35.8 seconds] 7Interpretive Data: RECOMMENDED RANGES FOR PROTIME INR: 2.0-3.0 for most medical and surgical thromboembolic states. 2.5-3.5 for artificial heart valves and recurrent embolism. INR SHOULD BE USED ONLY FOR PATIENTS ON STABLE ANTICOAGULANT THERAPY. 8Interpretive Data: Heparin Therapeutic Range: 57 - 92 Seconds Medications Administered During Your Visit No data available for this section Immunizations No data available for this section Social History Social History Type Response Alcohol Use: Current, Frequency: 1-2 times per month Smoking Status Never smoker, Exposure to Tobacco Smoke None, Cigarette Smoking Last 365 Days No, Reg Smoking Cessation Counseling No Assessment and Plan Extracted from: Title: Clinical Document Author: Itz Martinez MD Date: 04/11/14 NEUROLOGY CONSULTATION NOTE DATE: REFERRING PHYSICIAN: Erwin Olivera Reason for Consultation: weakness Chief Complaint: weakness History of Present Illness: 53 year old man with parksinsons and HTN preseted to the ER today after experiencing left leg weakness for 4 days. He states he has been dragging his foot quite a lot though no falls reported. This morning, some family members noticed one side of his face was droopy and he had some slurred speech. The patient also states he had some weakness of the left arm but it is unclear if this is new. He has s ome pain in the shoulder. He also has tremors and stiffness of the left arm for about one year. He recently saw a neurologist who put him on rasagiline but he has only taken one dose. THe patient complains of some dysphagia but again it is unclear if this is new. He denies word finding difficuly orsensory imapirment or vertigo. He denies chest pain or breathing difficulty. Past Medical Parkinsons Hypertension Surgical History: none Medications: Diovan rasagiline HCTZ Allergies - hydrocodone and bactrim Family History: Father had heart disease Social History: denies alcohol, tobacco, or illicit drug use Review of Systems: Constitutional- denies fevers, chills or weight changes HEENT- denies new vision or hearing change, sore throat, or rhinorrhea Cardiovascular- Denies chest pain or palpitations Respiratory- Denies shortness of breath Gastrointestinal- denies n/v/diarrhea or constipation or abdominal pain Genitourinary- denies hematuria, dysuria, or flank pain Musculoskeletal- per HPI Hemotologic- denies easy bleeding or bruising Skin- denies rashes Neurologic- as above Psychiatric - denies depression, SI Examination: Vitals and Temp: VitalsTmp(F)[id number] 04/11 19:[id number]--- 04/11 19:13----[id number]--- 04/11 18:[id number]--- 04/11 17:00----[id number]--- 04/11 14:[id number]--- 24 Hr Tmax: 99.2F (37.33c) at 04/11 19:46Vital Signs are the last 5 in the past 48 hours. Gen - NAD, hypomimia HEENT - NC/AT/MMM CV - RR. S1/S2, no carotid bruits Lungs - CTAB Ext - no c/c/e Neuro exam: Mental status: AOx3, follows all commands, no language deficits. Slightly hypophonic CN PERRL, EOMI, no facial asymmetry, normal facial sensation, normal hearing, uvula and tonguemidline. + dysarthrai Strength: 5/5 on RUE and RLE. 4+/5 in LUE (some limitation due to pain, no drift). 5-/5 in LLE, no drift Tone: cogwheel rigidity in L wrist, mild cogwheeling in R wrist. Abnormal movements: no tremor noted. Global bradykinesia Sensation: intact to LT and PP throughout Coordination: intact finger to nsoe and heel to ramirez bilaterally Reflexes: 2+ throughout, no pathologic reflexes 24hr Labs [facility] BUN: 13 mg/dL (04/11/14) Hct: 41.7 % (04/11/14) Hgb: 14.2 g/dL (04/11/14) MCH: 30.1 pg (04/11/14) MCHC: 34.0 g/dL (04/11/14) MCV: 88.4 fL (04/11/14) MPV: 9.8 fL (04/11/14) Platelet: 218 K/CMM (04/11/14) RBC: 4.71 M/CMM (04/11/14) RDW: 12.9 % (04/11/14) WBC: 9.2 K/CMM (04/11/14) CK MB: 0.6 ng/mL (04/11/14) Imaging Data: CT brain wo contrast - unremarkabl Assessment: 53 yo right handed man with HTN and Parkinsons presents with 4 day history of left leg weakness and one day history of facial dropp (resolved now) and slurred speech. He also has some weakness of his arm though there are some limitations in the exam due to pain. His NIHSS is 1. He also demonstrates signs of parkinsons including bradykinesia, hypomimia, and asymmetric cogwheel rigidity. He will be admitted for stroke work up. 1. Likely acute ischemic stroke 2. Dysarthria due to 1. 3. Left hemiparesis due to 1. 4. Parkinsons 5. Hypertension Recommendations: -Follow up MRI brain and carotid dopplers. -TTE -ASA 81mg daily -Check fasting lipids, HbA1c -PT/OT/Speech therapy -Telemetry -Maintain normotension (on HTN meds now) -Not a candidate for thrombolytic therapy as he is out of the time window and has low NIHSS -Not a candidate for anticoagulation as no documented arrythmia -DVT ppx - lovenox 40mg SQ daily Regarding parkinsons - can continue rasagiline for now and monitor response Will continue to follow. Thank you for this consult.
--- OUTSIDE RECORDS SUMMARY | 2018-11-28 23:29 | XMS REPORT | Continuity of Care Document ---
Author Author [facility] Interface Address Unknown Phone Unavailable Problems Problem Status Onset Date Classification Date Reported Comments Source M25.511 - PAIN IN RIGHT SHOULDER Active 12/05/2016 [facility] [place] Diagnosis: Muscle tear 05/02/2014 05/05/2014 [facility] LEG PAIN Active 05/01/2014 [facility] STROKE LIKE SYMPTOMS Active 04/07/2014 [facility] CVA Active 04/07/2014 [facility] 719.4 - PAIN IN JOINT Active 02/15/2012 [facility] - HTN HRT/CHRON K Active 01/12/2012 [facility] HTN (<span [id number]</span>) Resolved Problem 12/08/2016 [facility] Parkinsons disease Resolved Problem 12/08/2016 [facility] CVA Active [facility] Medications Medication Details Route Status Patient Instructions Ordering Provider Order Date Source Motrin 600 mg, Route: PO, Drug form: TAB, ONCE, Dosing Weight 93.182, kg, Priority: STAT, Start date: 05/02/14 0:28:00, Stop date: 05/02/14 0:28:00 Inactive 05/02/2014 [facility] Hydrocodone Bitartrate 7.5 MG / Ibuprofen 200 MG Oral Tablet [Vicoprofen] 1 tab, Route: PO, Dosing Weight 93.182, kg, ONCE, Start date: 05/02/14 0:18:00, Stop date: 05/02/14 0:18:00 Inactive 05/02/2014 [facility] aspirin 325 mg tablet 325 mg=1 tab, PO, Daily, # 100 tab, 3 Refill(s) Active 04/13/2014 [facility] Carbidopa 25 MG / Levodopa 100 MG Oral Tablet [Sinemet 25-100] 1 tab, NG, TID, # 30 tab, 3 Refill(s) Active 04/13/2014 [facility] Carbidopa 25 MG / Levodopa 100 MG Oral Tablet [Sinemet 25-100] 1 tab, Route: NG, Drug Form: ERTAB, Dosing Weight 93.182, kg, TID, Start date: 04/12/14 17:00:00, Duration: 30 day, Stop date: 05/12/14 13:00:00Notes: "Do Not Crush" Take with milk or food. (Same As: Sinemet CR) No Longer Active 04/12/2014 [facility] pantoprazole 40 mg, Route: IVP, Drug form: INJ, Before Dinner, Dosing Weight 93.182, kg, Start date: 04/12/14 16:30:00, Duration: 30 day, Stop date: 05/11/14 16:30:00Notes: For IV push reconstitute with 10 ml 0.9% sodium chloride and push over 2 minutes. (Same as: Protonix) No Longer Active 04/12/2014 [facility] Aspirin / Calcium Carbonate 325 mg, 1 tab, Route: PO, Drug form: TAB, Daily, Dosing Weight 93.182, kg, Start date: 04/12/14 9:00:00, Duration: 30 day, Stop date: 05/11/14 9:00:00Notes: Take with food. No Longer Active 04/12/2014 [facility] Simvastatin 40 mg, 1 tab, Route: PO, Drug form: TAB, Bedtime, Dosing Weight 93.182, kg, Start date: 04/11/14 21:00:00, Duration: 30 day, Stop date: 05/10/14 21:00:00Notes: (Same as: Zocor) No Longer Active 04/12/2014 [facility] Saline Flush 0.9% 5 ml, Route: IVP, Drug Form: INJ, Dosing Weight 93.182, kg, Q12H, Start date: 04/11/14 21:00:00, Duration: 30 day, Stop date: 05/11/14 9:00:00Notes: (Same as: BD Posiflush) No Longer Active 04/12/2014 [facility] Saline Flush 0.9% 5 ml, Route: IVP, Drug Form: INJ, Dosing Weight 93.182, kg, PRN, PRN Line Flush, Start date: 04/11/14 20:13:00, Duration: 30 day, Stop date: 05/11/14 20:12:00Notes: (Same as: BD Posiflush) No Longer Active 04/12/2014 [facility] Enoxaparin 40 mg, 0.4 mL, Route: SUB-Q, Drug form: INJ, [id number], Dosing Weight 93.182, kg, Start date: 04/11/14 20:00:00, Duration: 30 day, Stop date: 05/10/14 20:00:00Notes: (Same as: Lovenox) No Longer Active 04/12/2014 [facility] normal saline 0.9% IV 1,000 mL 1,000 mL, Rate: 100 ml/hr, Infuse over: 10 hr, Route: IV, Dosing Weight 93.182 kg, Total Volume: 1,000, Start date: 04/11/14 19:44:00, Duration: 30 day, Stop date: 05/11/14 19:43:00 No Longer Active 04/12/2014 [facility] Azilect 0.5 mg, PO, Daily, 0 Refill(s) Active 04/11/2014 [facility] Hydrochlorothiazide 12.5 mg, PO, Daily, 0 Refill(s) Active 04/11/2014 [facility] valsartan 320 MG Oral Tablet [Diovan] 320 mg=1 tab, PO, Daily, # 30 tab, 0 Refill(s) Active 04/11/2014 [facility] rasagiline 1 MG Oral Tablet [Azilect] 1 mg=1 tab, PO, Daily, # 30 tab, 0 Refill(s) Active 04/11/2014 [facility] Potassium Chloride 20 mEq, 100 mL, Route: IVPB, Drug form: INJ, Q2H, Dosing Weight 93.182, kg, Total dose=60 mEq, Start date: 04/11/14 18:00:00, Duration: 3 doses or times, Stop date: 04/11/14 22:00:00Notes: (Same as: KCL) Infuse no faster than 10 mEq/hr if given peripherally. Inactive 04/11/2014 [facility] Aspirin / Calcium Carbonate 325 mg, 1 tab, Route: PO, Drug form: TAB, ONCE, Dosing Weight 93.182, kg, Priority: STAT, Start date: 04/11/14 15:44:00, Stop date: 04/11/14 15:44:00Notes: Take with food. Inactive 04/11/2014 [facility] Saline Flush 0.9% 5 ml, Route: IVP, Drug Form: INJ, Dosing Weight 93.182, kg, PRN, PRN Line Flush, Start date: 04/11/14 15:43:00, Duration: 30 day, Stop date: 05/11/14 15:42:00Notes: (Same as: BD Posiflush) No Longer Active 04/11/2014 [facility] Allergies, Adverse Reactions, Alerts Substance Category Reaction Severity Reaction type Status Date Reported Comments Source Bactrim Assertion Drug allergy Active [facility] [place] Assertion Drug allergy Active [facility] [place] Immunizations Immunization Date Given Site Status Last Updated Comments Source Results Order Name Results Value Reference Range Date Interpretation Comments Source Shoulder series DX Shoulder series DX EXAM: Shoulder series DX HISTORY: right shoulder pain COMPARISON: None 3 views of the right shoulder. No fracture is seen. Alignment is normal. There is no significant degenerative change which is radiographically apparent. IMPRESSION: No acute normality. 12/05/2016 - - Read by: Milly Mercado MD Dictated Date/time: 12/05/16 15:10 Electronically Signed by: Milly Mercado MD 12/05/16 15:11 FINAL REPORT JEANNETTE Pearson Ext Lower Venous Doppler Unilat US Ext Lower Venous Doppler Unilat US EXAM: Left lower extremity venous Doppler. HISTORY: Left leg pain and swelling TECHNIQUE: Spectral and color Doppler evaluation of the deep venous system left lower extremity. FINDINGS: Normal compressibility, color and spectral flow and augmentation in the left common femoral, femoral, popliteal and posterior tibial veins. The left greater saphenous vein is also patent. IMPRESSION: 1. No deep venous thrombosis is seen in the left lower extremity. 2. 11 x 2.5 cm hypoechoic lesion or collection in the soft tissues of the left calf of uncertain etiology, may reflect a hematoma or fluid. A nonemergent MRI with contrast can further evaluate. SL: 14 05/02/2014 - - Read by: Osmel Carlson MD Dictated Date/time: 05/02/14 02:17 Electronically Signed by: Osmel Carlson MD 05/02/14 02:19 FINAL REPORT [facility] CHEM PANEL Calcium Lvl 8.5 mg/dL 8.5 - 10.5 04/13/2014 [facility] CHEM PANEL Creatinine Lvl 0.9 mg/dL 0.5 - 1.4 04/13/2014 [facility] CHEM PANEL Chloride Lvl 107 meq/L 95 - 109 04/13/2014 [facility] CHEM PANEL Potassium Lvl 3.6 meq/L 3.5 - 5.1 04/13/2014 [facility] CHEM PANEL CO2 29 meq/L 24 - 32 04/13/2014 [facility] CHEM PANEL Sodium Lvl 143 meq/L 135 - 145 04/13/2014 [facility] CHEM PANEL BUN 16 mg/dL 7 - 22 04/13/2014 [facility] CHEM PANEL Glucose Lvl 96 mg/dL 70 - 99 04/13/2014 4Interpretive Data: Adult reference range values reflect the clinical guidelines of the [place] [employer]. [facility] CHEM PANEL eGFR 98 mL/min/1.73m2 04/13/2014 1Result Comment: The eGFR is calculated using [...] from the National Kidney Disease Education Program (NKDEP) which additionally recommends that when the eGFR is used in patients with extremes of body mass index for purposes of drug dosing, the eGFR should be multiplied by the estimated BMI. [facility] CHEM PANEL AGAP 10.6 meq/L 10.0 - 20.0 04/13/2014 [facility] HEMATOLOGY MPV 10.0 fL 7.4 - 10.4 04/13/2014 [facility] HEMATOLOGY Platelet 186 K/CMM 133 - 450 04/13/2014 [facility] HEMATOLOGY Hgb 13.2 g/dL 14.0 - 18.0 04/13/2014 [facility] HEMATOLOGY MCV 89.3 fL 80.0 - 94.0 04/13/2014 [facility] HEMATOLOGY RBC 4.42 M/CMM 4.70 - 6.10 04/13/2014 [facility] HEMATOLOGY WBC 9.0 K/CMM 3.7 - 10.4 04/13/2014 [facility] Hct 39.5 % 42.0 - 54.0 04/13/2014 [facility] MCH 29.9 pg 27.0 - 31.0 04/13/2014 [facility] MCHC 33.5 g/dL 32.0 - 36.0 04/13/2014 [facility] RDW 13.2 % 11.5 - 14.5 04/13/2014 [facility] Basophils # 0.1 K/CMM 0.0 - 0.2 04/13/2014 [facility] HEMATOLOGY Eosinophils # 0.8 K/CMM 0.0 - 0.5 04/13/2014 [facility] Monocytes # 0.8 K/CMM 0.0 - 0.8 04/13/2014 [facility] Lymphocytes # 2.5 K/CMM 1.0 - 5.5 04/13/2014 [facility] Segs 54.1 % 45.0 - 75.0 04/13/2014 [facility] Eosinophils 9.2 % 0.0 - 4.0 04/13/2014 [facility] Monocytes 8.8 % 2.0 - 12.0 04/13/2014 [facility] Segs-Bands # 4.9 K/CMM 1.5 - 8.1 04/13/2014 [facility] Lymphocytes 27.2 % 20.0 - 40.0 04/13/2014 [facility] Basophils 0.7 % 0.0 - 1.0 04/13/2014 [facility] ELECTROLYTES AGAP 10.2 meq/L 10.0 - 20.0 04/12/2014 [facility] ELECTROLYTES B/C Ratio 18 6 - 25 04/12/2014 [facility] ELECTROLYTES Globulin 3.4 g/dL 2.0 - 4.0 04/12/2014 [facility] ELECTROLYTES A/G Ratio 0.9 0.7 - 1.6 04/12/2014 [facility] ELECTROLYTES eGFR 103 mL/min/1.73m2 04/12/2014 2Result Comment: The eGFR is calculated using [...] from the National Kidney Disease Education Program (NKDEP) which additionally recommends that when the eGFR is used in patients with extremes of body mass index for purposes of drug dosing, the eGFR should be multiplied by the estimated BMI. [facility] ELECTROLYTES Bili Total 0.5 mg/dL 0.2 - 1.3 04/12/2014 [facility] ELECTROLYTES Alk Phos 68 unit/L 39 - 136 04/12/2014 [facility] ELECTROLYTES ALT 28 unit/L 0 - 65 04/12/2014 [facility] ELECTROLYTES AST 16 unit/L 0 - 37 04/12/2014 [facility] ELECTROLYTES Total Protein 6.6 g/dL 6.4 - 8.4 04/12/2014 [facility] ELECTROLYTES Calcium Lvl 8.1 mg/dL 8.5 - 10.5 04/12/2014 [facility] ELECTROLYTES Albumin Lvl 3.2 g/dL 3.5 - 5.0 04/12/2014 [facility] ELECTROLYTES CO2 28 meq/L 24 - 32 04/12/2014 [facility] ELECTROLYTES Creatinine Lvl 0.8 mg/dL 0.5 - 1.4 04/12/2014 [facility] ELECTROLYTES Potassium Lvl 3.2 meq/L 3.5 - 5.1 04/12/2014 [facility] ELECTROLYTES Chloride Lvl 106 meq/L 95 - 109 04/12/2014 [facility] ELECTROLYTES BUN 14 mg/dL 7 - 22 04/12/2014 [facility] ELECTROLYTES Sodium Lvl 141 meq/L 135 - 145 04/12/2014 [facility] ELECTROLYTES Glucose Lvl 93 mg/dL 70 - 99 04/12/2014 5Interpretive Data: Adult reference range values reflect the clinical guidelines of the [place] [employer]. [facility] HEMATOLOGY MPV 10.0 fL 7.4 - 10.4 04/12/2014 [facility] HEMATOLOGY WBC 7.9 K/CMM 3.7 - 10.4 04/12/2014 [facility] HEMATOLOGY Hct 41.3 % 42.0 - 54.0 04/12/2014 [facility] RBC 4.63 M/CMM 4.70 - 6.10 04/12/2014 [facility] Hgb 13.8 g/dL 14.0 - 18.0 04/12/2014 [facility] HEMATOLOGY RDW 12.9 % 11.5 - 14.5 04/12/2014 [facility] HEMATOLOGY Platelet 204 K/CMM 133 - 450 04/12/2014 [facility] MCH 29.8 pg 27.0 - 31.0 04/12/2014 [facility] MCHC 33.4 g/dL 32.0 - 36.0 04/12/2014 [facility] MCV 89.1 fL 80.0 - 94.0 04/12/2014 [facility] HEMATOLOGY Segs 56.9 % 45.0 - 75.0 04/12/2014 [facility] HEMATOLOGY Lymphocytes 24.5 % 20.0 - 40.0 04/12/2014 [facility] HEMATOLOGY Monocytes 10.0 % 2.0 - 12.0 04/12/2014 [facility] Segs-Bands # 4.5 K/CMM 1.5 - 8.1 04/12/2014 [facility] Lymphocytes # 1.9 K/CMM 1.0 - 5.5 04/12/2014 [facility] Monocytes # 0.8 K/CMM 0.0 - 0.8 04/12/2014 [facility] Basophils 0.6 % 0.0 - 1.0 04/12/2014 [facility] HEMATOLOGY Eosinophils 8.0 % 0.0 - 4.0 04/12/2014 [facility] Eosinophils # 0.6 K/CMM 0.0 - 0.5 04/12/2014 [facility] LIPIDS VLDL 11 04/12/2014 [facility] LIPIDS LDL (Calculated) 91 mg/dL <=99 mg/dL 04/12/2014 [facility] LIPIDS Trig 55 mg/dL <=149 mg/dL 04/12/2014 [facility] LIPIDS Chol 152 mg/dL <=199 mg/dL 04/12/2014 [facility] LIPIDS HDL 50 mg/dL >=61 mg/dL 04/12/2014 [facility] LIPIDS CHD Risk 3.04 4.00 - 7.30 04/12/2014 [facility] SPECIAL CHEMISTRY Hgb A1C 5.3 % <=5.6 % 04/12/2014 [facility] Brain w/wo contrast MRI Brain w/wo contrast MRI MRI BRAIN with and without contrast CLINICAL INDICATION: Aphasia or dysarthria COMPARISON: CT of the brain from 04/11/2014 TECHNIQUE: Multiplanar, multisequence magnetic resonance imaging of the brain was performed with and without administration of intravenous gadolinium contrast. Findings: Age-related atrophy of the brain parenchyma is seen. No abnormal enhancement is seen. No restricted areas of diffusion to suggest acute infarct are seen. No acute intracranial hemorrhage, mass effect, midline shift, or hydrocephalus is seen. There are no extra axial fluid collections. The midline structures are intact. The visualized intracranial flow voids are unremarkable. The paranasal sinuses and mastoid air cells are normal in appearance. IMPRESSION: 1. No acute intracranial abnormality. 2. No abnormal enhancement. SL: 04/12/2014 - - Read by: Marck Knight MD Dictated Date/time: 04/12/14 08:31 Electronically Signed by: Marck Knight MD 04/12/14 08:33 FINAL REPORT [facility] Brain wo contrast MRA Brain wo contrast MRA MRA OF THE HEAD WITHOUT CONTRAST HISTORY: Aphasia or dysarthria COMPARISON: None. TECHNIQUE: Magnetic resonance angiography of the [place] using TOF imaging. 3-D maximum intensity projection images were obtained and viewed in multiple projections. Source images were also reviewed. FINDINGS: The petrous, cavernous, ophthalmic and supraclinoid portions of the bilateral internal carotid arteries are normal. The A1 and proximal A2 segments of the bilateral anterior cerebral arteries are unremarkable. The M1 and M2 segments of the bilateral middle cerebral arteries and branches are unremarkable. The anterior communicating artery is unremarkable. Bilateral vertebral arteries, posterior inferior cerebellar arteries, basilar artery, left anterior inferior cerebellar artery, superior cerebellar and posterior cerebral arteries are unremarkable. The source images show normal bilateral posterior communicating arteries. There are no aneurysms or significant atherosclerotic related stenoses. IMPRESSION: No evidence of significant stenosis or aneurysm involving the vessels of the [place]. SL: 04/12/2014 - - Read by: Marck Knight MD Dictated Date/time: 04/12/14 08:33 Electronically Signed by: Marck Knight MD 04/12/14 08:35 FINAL REPORT [facility] Carotid artery Doppler bilat US Carotid artery Doppler bilat US Exam: Carotid Doppler. History: Acute cerebral accident Technique: Grayscale, color Doppler, and spectral wave form analysis was performed of the carotid and vertebral arteries. Findings: Right: No significant atherosclerotic disease is seen. Right ICA-PSV 81 cm/s Right CCA-PSV 109 cm/s Right vertebral artery PSV 50 cm/s with antegrade flow Right ICA/CCA PSV ratio: 0.74 Left: No significant atherosclerotic disease is seen. Left ICA-PSV 87 cm/s Left CCA-PSV 126 cm/s Left vertebral artery PSV 47 cm/s with antegrade flow Left ICA/CCA PSV ratio: 0.69 Impression: 1. Negative for carotid stenosis. NOTE: Any reference to stenosis is made using 2002 Society or Radiologists in Ultrasound Consensus Panel Criteria. SL: 12 04/11/2014 - - Read by: Marck Knight MD Dictated Date/time: 04/12/14 08:43 Electronically Signed by: Marck Knight MD 04/12/14 08:45 FINAL REPORT [facility] CARDIAC ENZYMES Troponin-I null 0.00 - 0.40 04/11/2014 [facility] CARDIAC ENZYMES CK MB 0.6 ng/mL 0.5 - 3.6 04/11/2014 [facility] CARDIAC ENZYMES Total CK 75 unit/L 12 - 191 04/11/2014 [facility] CARDIAC ENZYMES CK MB Index 0.8 0.0 - 2.5 04/11/2014 [facility] CHEM PANEL eGFR 103 mL/min/1.73m2 04/11/2014 3Result Comment: The eGFR is calculated using [...] from the National Kidney Disease Education Program (NKDEP) which additionally recommends that when the eGFR is used in patients with extremes of body mass index for purposes of drug dosing, the eGFR should be multiplied by the estimated BMI. [facility] CHEM PANEL A/G Ratio 1.0 0.7 - 1.6 04/11/2014 [facility] CHEM PANEL Globulin 3.6 g/dL 2.0 - 4.0 04/11/2014 [facility] CHEM PANEL B/C Ratio 16 6 - 25 04/11/2014 [facility] CHEM PANEL Total Protein 7.1 g/dL 6.4 - 8.4 04/11/2014 [facility] CHEM PANEL Albumin Lvl 3.5 g/dL 3.5 - 5.0 04/11/2014 [facility] CHEM PANEL ALT 30 unit/L 0 - 65 04/11/2014 [facility] CHEM PANEL AGAP 11.2 meq/L 10.0 - 20.0 04/11/2014 [facility] CHEM PANEL Bili Total 0.5 mg/dL 0.2 - 1.3 04/11/2014 [facility] CHEM PANEL AST 18 unit/L 0 - 37 04/11/2014 [facility] CHEM PANEL Alk Phos 73 unit/L 39 - 136 04/11/2014 [facility] CHEM PANEL Creatinine Lvl 0.8 mg/dL 0.5 - 1.4 04/11/2014 [facility] CHEM PANEL Glucose Lvl 89 mg/dL 70 - 99 04/11/2014 6Interpretive Data: Adult reference range values reflect the clinical guidelines of the [place] [employer]. [facility] CHEM PANEL BUN 13 mg/dL 7 - 22 04/11/2014 [facility] CHEM PANEL Calcium Lvl 9.0 mg/dL 8.5 - 10.5 04/11/2014 [facility] CHEM PANEL Chloride Lvl 104 meq/L 95 - 109 04/11/2014 [facility] CHEM PANEL CO2 27 meq/L 24 - 32 04/11/2014 [facility] CHEM PANEL Potassium Lvl 3.2 meq/L 3.5 - 5.1 04/11/2014 [facility] CHEM PANEL Sodium Lvl 139 meq/L 135 - 145 04/11/2014 [facility] HEMATOLOGY PTT 29.5 s 22.9 - 35.8 04/11/2014 8Interpretive Data: Heparin Therapeutic Range: 57 - 92 Seconds [facility] PT 12.8 s 12.0 - 14.7 04/11/2014 [facility] INR 0.97 0.85 - 1.17 04/11/2014 7Interpretive Data: RECOMMENDED RANGES FOR PROTIME INR: 2.0-3.0 for most medical and surgical thromboembolic states. 2.5-3.5 for artificial heart valves and recurrent embolism. INR SHOULD BE USED ONLY FOR PATIENTS ON STABLE ANTICOAGULANT THERAPY. [facility] MCHC 34.0 g/dL 32.0 - 36.0 04/11/2014 [facility] HEMATOLOGY RDW 12.9 % 11.5 - 14.5 04/11/2014 [facility] Platelet 218 K/CMM 133 - 450 04/11/2014 [facility] MPV 9.8 fL 7.4 - 10.4 04/11/2014 [facility] Hct 41.7 % 42.0 - 54.0 04/11/2014 [facility] MCV 88.4 fL 80.0 - 94.0 04/11/2014 [facility] MCH 30.1 pg 27.0 - 31.0 04/11/2014 [facility] WBC 9.2 K/CMM 3.7 - 10.4 04/11/2014 [facility] RBC 4.71 M/CMM 4.70 - 6.10 04/11/2014 [facility] Hgb 14.2 g/dL 14.0 - 18.0 04/11/2014 [facility] Lymphocytes # 2.0 K/CMM 1.0 - 5.5 04/11/2014 [facility] Segs-Bands # 5.7 K/CMM 1.5 - 8.1 04/11/2014 [facility] Monocytes # 0.8 K/CMM 0.0 - 0.8 04/11/2014 [facility] Segs 62.0 % 45.0 - 75.0 04/11/2014 [facility] Eosinophils 7.3 % 0.0 - 4.0 04/11/2014 [facility] Basophils 0.8 % 0.0 - 1.0 04/11/2014 [facility] Monocytes 8.4 % 2.0 - 12.0 04/11/2014 [facility] Lymphocytes 21.5 % 20.0 - 40.0 04/11/2014 [facility] Eosinophils # 0.7 K/CMM 0.0 - 0.5 04/11/2014 [facility] Basophils # 0.1 K/CMM 0.0 - 0.2 04/11/2014 [facility] Chest 1view Chest 1view Chest one view: Exam reason: See Clinic Indication Dizziness A few scattered interstitial opacities are noted bilaterally, nonspecific, likely chronic. The cardiac silhouette is mildly enlarged. Chronic uncoiling of the thoracic aorta is noted. There is no consolidation or pleural fluid collection noted. Marginal spurring is noted at the thoracic spine. The dylan are prominent bilaterally likely vascular. Right paratracheal opacity is noted at the apex of the right hemithorax likely tortuous great vessel similar to the previous exam. IMPRESSION: No acute cardiopulmonary process noted. SL:12 04/11/2014 - - Read by: James Bower MD Dictated Date/time: 04/11/14 16:21 Electronically Signed by: James Bower MD 04/11/14 16:22 FINAL REPORT [facility] Brain Stroke wo contrast CT Brain Stroke wo contrast CT CT head without contrast. CLINICAL INDICATION: Headache with Lack of Coordination. COMPARISON: [None]. TECHNIQUE: Multiple contiguous axial images of the brain were performed without IV contrast. FINDINGS: Ventricles and subarachnoid spaces are appropriate for age. No acute territorial infarction or intracranial hemorrhage. No extra-axial fluid collection. Frias-white distinction is preserved. No mass, mass-effect, or midline shift. Visualized paranasal sinuses are unremarkable. IMPRESSION: No acute intracranial process detected. MRI brain if indicated. SL: 12 04/11/2014 - - Read by: Ritchie Bone MD Dictated Date/time: 04/11/14 14:44 Electronically Signed by: Ritchie Bone MD 04/11/14 14:46 FINAL REPORT [facility] Vital Signs Vital Sign Value Date Comments Source Systolic (mm Hg) 124 05/02/2014 [facility] Diastolic (mm Hg) 91 05/02/2014 [facility] Respitory Rate 18 05/02/2014 [facility] Heart Rate 56 05/02/2014 [facility] Temperature Oral (F) 97.6 F 05/02/2014 [facility] Respitory Rate 18 05/02/2014 [facility] Heart Rate 69 05/02/2014 [facility] Systolic (mm Hg) 122 05/02/2014 [facility] Diastolic (mm Hg) 85 05/02/2014 [facility] Temperature Oral (F) 98.1 F 05/02/2014 [facility] Systolic (mm Hg) 144 04/14/2014 [facility] Diastolic (mm Hg) 88 04/14/2014 [facility] Heart Rate 78 04/14/2014 [facility] Temperature Oral (F) 98.2 F 04/14/2014 [facility] Respitory Rate 16 04/14/2014 [facility] Temperature Oral (F) 98.7 F 04/13/2014 [facility] Respitory Rate 14 04/13/2014 [facility] Heart Rate 78 04/13/2014 [facility] Diastolic (mm Hg) 89 04/13/2014 [facility] Systolic (mm Hg) 149 04/13/2014 [facility] Temperature Oral (F) 98.3 F 04/13/2014 [facility] Heart Rate 75 04/13/2014 [facility] Systolic (mm Hg) 148 04/13/2014 [facility] Respitory Rate 14 04/13/2014 [facility] Diastolic (mm Hg) 99 04/13/2014 [facility] BMI Calculated 34.19 04/12/2014 [facility] Weight 93.182 04/12/2014 [facility] Height 165.1 cm 04/12/2014 [facility] Weight 93.182 04/11/2014 [facility] BMI Calculated 34.19 04/11/2014 [facility] Height 165.1 cm 04/11/2014 [facility] Encounters Location Location Details Encounter Type Encounter Number Reason For Visit Attending Provider ADM Date DC Date Status Source OD [id number] 404 - HTN HRT/CHRON K PANKAJ ALLAN 01/12/2012 Active JEANNETTE [place] [id number] 719.4 - PAIN IN JOINT PANKAJ ALLAN 02/15/2012 02/15/2012 Active JEANNETTE [facility] Inpatient [id number] Erwin Gudino 04/11/2014 04/14/2014 [facility] [id number] Ivan Ospina 05/02/2014 05/02/2014 [facility] [id number] Pankaj Allan 12/05/2016 12/06/2016 JEANNETTE Pearson Procedures Procedure Code Date Perfomer Comments Source
--- OUTSIDE RECORDS SUMMARY | 2018-11-28 23:29 | XMS REPORT | Summary of Care ---
Author Author [facility] [place] Organization [facility] [place] Address Unknown Phone Unavailable Encounter [facility] Encntr_[email or web address](FIN) [id number] Date(s): 12/05/16 - 12/05/16 [facility] [place] [address] [phone] Discharge Disposition: Home or Self Care Attending Physician: Bubba Allan MD Vital Signs No data available for this section Problem List Condition Effective Dates Status Health Status Informant HTN Resolved (hypertension)(Confi rmed) Parkinsons Resolved disease(Confirmed) Allergies, Adverse Reactions, Alerts Substance Reaction Severity Status Bactrim Active [place] Active Medications No data available for this section Results No data available for this section Immunizations No data available for this section Procedures No data available for this section Social History Social History Type Response Alcohol Current, Frequency: 1-2 times per month. Smoking Status Never smoker; Exposure to Tobacco Smoke None; Cigarette Smoking Last 365 Days No; Reg Smoking Cessation Counseling No Assessment and Plan No data available for this section
[2018-11-28 23:53] LABS: BASOPHILS # (AUTO) 0.1 (0.0-0.1); BASOPHILS % 0.6 % (0.0-1.0); EOSINOPHILS # (AUTO) 0.3 (0.0-0.4); EOSINOPHILS % 3.2 % (0.0-6.0); HEMATOCRIT 43.9 % (38.2-49.6); HEMOGLOBIN 14.7 g/dL (14.0-18.0); LYMPHOCYTES # (AUTO) 2.1 (1.0-3.2); LYMPHOCYTES % 22.6 % (18.0-39.1); MEAN CORPUSCULAR HEMOGLOBIN 30.1 pg (28-32); MEAN CORPUSCULAR HGB CONC 33.5 g/dL (31-35); MEAN CORPUSCULAR VOLUME 89.8 fL (81-99); MONOCYTES # (AUTO) 0.9 (0.2-0.8); MONOCYTES % 9.9 % (4.4-11.3); NEUTROPHILS # (AUTO) 5.8 (2.1-6.9); NEUTROPHILS % 63.5 % (38.7-80.0); PLATELET COUNT 246 x10e3/uL (140-360); RED BLOOD COUNT 4.89 x10e6/uL (4.3-5.7); RED CELL DISTRIBUTION WIDTH 12.4 % (11.7-14.4)
[2018-11-29 00:11] LABS: ALBUMIN 3.6 g/dL (3.5-5.0); ALBUMIN/GLOBULIN RATIO 0.9 (0.8-2.0); ALKALINE PHOSPHATASE 86 IU/L (40-150); ANION GAP 12.4 mmol/L (8-16); BLOOD UREA NITROGEN 17 mg/dL (7-26); BUN/CREATININE RATIO 22 (6-25); CARBON DIOXIDE 25 mmol/L (22-29); CHLORIDE 102 mmol/L (98-107); CREATINE KINASE 91 IU/L (30-200); CREATININE, SERUM 0.77 mg/dL (0.72-1.25); EST GLOMERULAR FILTRATION RATE > 60 ML/MIN (60-); GLUCOSE 111 mg/dL (74-118); POTASSIUM 3.4 mmol/L (3.5-5.1); SODIUM 136 mmol/L (136-145)
[2018-11-29 00:13] LABS: ALANINE AMINOTRANSFERASE < 6 IU/L (0-55)
[2018-11-29 00:17] LABS: CREATINE KINASE MB < 1.00 ng/mL (0-4.3)
--- NOTE | 2018-11-29 00:47 | Diagnostic Imaging Report ---
EXAMINATION: CHEST 2 VIEWS INDICATION: CHEST PAIN, [place] COMPARISON: None FINDINGS: TUBES and LINES: None. LUNGS: Bilateral subsegmental atelectasis. There is no evidence of pneumonia or pulmonary edema. PLEURA: No pleural effusion or pneumothorax. HEART AND MEDIASTINUM: The cardiomediastinal silhouette is unremarkable. BONES AND SOFT TISSUES: No acute osseous lesion. Soft tissues are unremarkable. UPPER ABDOMEN: No free air under the diaphragm. IMPRESSION: Bilateral subsegmental atelectasis. Signed by: Dr. Monica Smart M.D. on 11/29/2018 12:43 AM
--- NOTE | 2018-11-29 02:15 | NUR ---
repeat cardiac enzymes collected and sent to lab, pt denies pain, awake alert skin w/d resp nonlab. nad noted.
[2018-11-29 02:47] LABS: CREATINE KINASE 84 IU/L (30-200)
[2018-11-29 03:13] VITALS: BP 157/99
== END 2018-11-29 04:05 | disposition home or self-care (01) ==
LOC: ER 23:26
DX: R07.89 Other chest pain (principal); G20 Parkinson's disease; Z86.73 Personal history of transient ischemic attack (TIA), and cerebral infarction without residual deficits
CPT/HCPCS: 36415; 71046; 80053; 82550; 82553; 84484; 85025; 93005; 99284

== ENCOUNTER 2019-04-09 16:33 | Emergency (ER) | payer SELFPAY ==
[~2019-04-09] VITALS: Ht 160 cm; Wt 93.0 kg
--- OUTSIDE RECORDS SUMMARY | 2019-04-09 16:34 | XMS REPORT | Continuity of Care Document ---
Author Author [facility] Address Unknown Phone Unavailable Care Team Providers Care Siding Coreboard Inspector Name Role Phone [employer] Unavailable Unavailable Problems Problem Status Onset Date Classification Date Reported Comments Source M25.511 - PAIN IN RIGHT SHOULDER Active 12/05/2016 [facility] Discharge Diagnosis: Muscle tear 05/02/2014 05/05/2014 [facility] LEG PAIN Active 05/01/2014 [facility] STROKE LIKE SYMPTOMS Active 04/07/2014 [facility] CVA Active 04/07/2014 [facility] 719.4 - PAIN IN JOINT [facility] [facility] - [facility]N [facility]CHRON K [facility] Resolved Problem 12/08/2016 [facility] [place],[facility] Parkinsons disease Resolved Problem 12/08/2016 [facility] CVA Active [facility] Medications Medication Details Route Status Patient Instructions Ordering Provider Order Date Source Motrin 600 mg, Route: PO, Drug form: TAB, ONCE, Dosing Weight 93.182, kg, Priority: STAT, Start date: 05/02/14 0:28:00, Stop date: 05/02/14 0:28:00 Inactive 05/02/2014 [facility] Hydrocodone Bitartrate 7.5 MG / Ibuprofen 200 MG Oral Tablet [Vicoprofen] 1 tab, Route: PO, Dosing Weight 93.182, kg, ONCE, Start date: 05/02/14 0:18:00, Stop date: 05/02/14 0:18:00 Inactive 05/02/2014 [facility] aspirin 325 mg tablet 325 mg=1 tab, PO, Daily, # 100 tab, 3 Refill(s) Active 04/13/2014 [facility] Carbidopa 25 MG / Levodopa 100 MG Oral Tablet [Sinemet 25-100] 1 tab, NG, TID, # 30 tab, 3 Refill(s) Active 04/13/2014 [facility] Carbidopa 25 MG / Levodopa 100 MG Oral Tablet [Sinemet 25-100] 1 tab, Route: NG, Drug Form: ERTAB, Dosing Weight 93.182, kg, TID, Start date: 04/12/14 17:00:00, Duration: 30 day, Stop date: 05/12/14 13:00:00Notes: "Do Not Crush" Take with milk or food. (Same As: Sinemet CR) No Longer Active 04/12/2014 [facility] pantoprazole 40 mg, Route: IVP, Drug form: INJ, Before Dinner, Dosing Weight 93.182, kg, Start date: 04/12/14 16:30:00, Duration: 30 day, Stop date: 05/11/14 16:30:00Notes: For IV push reconstitute with 10 ml 0.9% sodium chloride and push over 2 minutes. (Same as: Protonix) No Longer Active 04/12/2014 [facility] Aspirin / Calcium Carbonate 325 mg, 1 tab, Route: PO, Drug form: TAB, Daily, Dosing Weight 93.182, kg, Start date: 04/12/14 9:00:00, Duration: 30 day, Stop date: 05/11/14 9:00:00Notes: Take with food. No Longer Active 04/12/2014 [facility] Simvastatin 40 mg, 1 tab, Route: PO, Drug form: TAB, Bedtime, Dosing Weight 93.182, kg, Start date: 04/11/14 21:00:00, Duration: 30 day, Stop date: 05/10/14 21:00:00Notes: (Same as: Zocor) No Longer Active 04/12/2014 [facility] Saline Flush 0.9% 5 ml, Route: IVP, Drug Form: INJ, Dosing Weight 93.182, kg, Q12H, Start date: 04/11/14 21:00:00, Duration: 30 day, Stop date: 05/11/14 9:00:00Notes: (Same as: BD Posiflush) No Longer Active 04/12/2014 [facility] Saline Flush 0.9% 5 ml, Route: IVP, Drug Form: INJ, Dosing Weight 93.182, kg, PRN, PRN Line Flush, Start date: 04/11/14 20:13:00, Duration: 30 day, Stop date: 05/11/14 20:12:00Notes: (Same as: BD Posiflush) No Longer Active 04/12/2014 [facility] Enoxaparin 40 mg, 0.4 mL, Route: SUB-Q, Drug form: INJ, [id number], Dosing Weight 93.182, kg, Start date: 04/11/14 20:00:00, Duration: 30 day, Stop date: 05/10/14 20:00:00Notes: (Same as: Lovenox) No Longer Active 04/12/2014 [facility] normal saline 0.9% IV 1,000 mL 1,000 mL, Rate: 100 ml/hr, Infuse over: 10 hr, Route: IV, Dosing Weight 93.182 kg, Total Volume: 1,000, Start date: 04/11/14 19:44:00, Duration: 30 day, Stop date: 05/11/14 19:43:00 No Longer Active 04/12/2014 [facility] Azilect 0.5 mg, PO, Daily, 0 Refill(s) Active 04/11/2014 [facility] Hydrochlorothiazide 12.5 mg, PO, Daily, 0 Refill(s) Active 04/11/2014 [facility] valsartan 320 MG Oral Tablet [Diovan] 320 mg=1 tab, PO, Daily, # 30 tab, 0 Refill(s) Active 04/11/2014 [facility] rasagiline 1 MG Oral Tablet [Azilect] 1 mg=1 tab, PO, Daily, # 30 tab, 0 Refill(s) Active 04/11/2014 [facility] Potassium Chloride 20 mEq, 100 mL, Route: IVPB, Drug form: INJ, Q2H, Dosing Weight 93.182, kg, Total dose=60 mEq, Start date: 04/11/14 18:00:00, Duration: 3 doses or times, Stop date: 04/11/14 22:00:00Notes: (Same as: KCL) Infuse no faster than 10 mEq/hr if given peripherally. Inactive 04/11/2014 [facility] Aspirin / Calcium Carbonate 325 mg, 1 tab, Route: PO, Drug form: TAB, ONCE, Dosing Weight 93.182, kg, Priority: STAT, Start date: 04/11/14 15:44:00, Stop date: 04/11/14 15:44:00Notes: Take with food. Inactive 04/11/2014 [facility] Saline Flush 0.9% 5 ml, Route: IVP, Drug Form: INJ, Dosing Weight 93.182, kg, PRN, PRN Line Flush, Start date: 04/11/14 15:43:00, Duration: 30 day, Stop date: 05/11/14 15:42:00Notes: (Same as: BD Posiflush) No Longer Active 04/11/2014 [facility] Allergies, Adverse Reactions, Alerts Substance Category Reaction Severity Reaction type Status Date Reported Comments Source Bactrim Assertion Drug allergy Active [facility] [place]illiard Assertion Drug allergy Active [facility] [place] Immunizations No Data Provided for This Section Results Order Name Results Value Reference Range Date Interpretation Comments Source CHEM PANEL Calcium Lvl 8.5 8.5 - 10.5 04/13/2014 [facility] CHEM PANEL Creatinine Lvl 0.9 0.5 - 1.4 04/13/2014 [facility] CHEM PANEL Chloride Lvl 107 95 - 109 04/13/2014 [facility] CHEM PANEL Potassium Lvl 3.6 3.5 - 5.1 04/13/2014 [facility] CHEM PANEL CO2 29 24 - 32 04/13/2014 [facility] CHEM PANEL Sodium Lvl 143 135 - 145 04/13/2014 [facility] CHEM PANEL BUN 16 7 - 22 04/13/2014 [facility] CHEM PANEL Glucose Lvl 96 70 - 99 04/13/2014 <sup>4</sup>Interpretive Data: Adult reference range values reflect the clinical guidelines
of the [place] [employer]. [facility] CHEM PANEL eGFR 98 04/13/2014 <sup>1</sup>Result Comment: The eGFR is calculated using the CKD-EPI formula. In most young, healthy individuals the eGFR will be >90 mL/min/1.73m2. The eGFR declines with age. An eGFR of 60-89 may be normal in some populations, particularly the elderly, for whom the CKD-EPI formula has not been extensively validated. Use of the eGFR is not recommended in the following populations:& lt;br/>
Individuals with unstable creatinine concentrations, including patients [...] should be multiplied by the estimated BMI. [facility] CHEM PANEL AGAP 10.6 10.0 - 20.0 04/13/2014 [facility] HEMATOLOGY MPV 10.0 7.4 - 10.4 04/13/2014 [facility] HEMATOLOGY Platelet 186 133 - 450 04/13/2014 [facility] HEMATOLOGY Hgb 13.2 14.0 - 18.0 04/13/2014 [facility] HEMATOLOGY MCV 89.3 80.0 - 94.0 04/13/2014 [facility] HEMATOLOGY RBC 4.42 4.70 - 6.10 04/13/2014 [facility] HEMATOLOGY WBC 9.0 3.7 - 10.4 04/13/2014 [facility] HEMATOLOGY Hct 39.5 42.0 - 54.0 04/13/2014 [facility] MCH 29.9 27.0 - 31.0 04/13/2014 [facility] MCHC 33.5 32.0 - 36.0 04/13/2014 [facility] HEMATOLOGY RDW 13.2 11.5 - 14.5 04/13/2014 [facility] HEMATOLOGY Basophils # 0.1 0.0 - 0.2 04/13/2014 [facility] HEMATOLOGY Eosinophils # 0.8 0.0 - 0.5 04/13/2014 [facility] HEMATOLOGY Monocytes # 0.8 0.0 - 0.8 04/13/2014 [facility] HEMATOLOGY Lymphocytes # 2.5 1.0 - 5.5 04/13/2014 [facility] HEMATOLOGY Segs 54.1 45.0 - 75.0 04/13/2014 [facility] HEMATOLOGY Eosinophils 9.2 0.0 - 4.0 04/13/2014 [facility] HEMATOLOGY Monocytes 8.8 2.0 - 12.0 04/13/2014 [facility] HEMATOLOGY Segs-Bands # 4.9 1.5 - 8.1 04/13/2014 [facility] HEMATOLOGY Lymphocytes 27.2 20.0 - 40.0 04/13/2014 [facility] HEMATOLOGY Basophils 0.7 0.0 - 1.0 04/13/2014 [facility] ELECTROLYTES AGAP 10.2 10.0 - 20.0 04/12/2014 [facility] ELECTROLYTES B/C Ratio 18 6 - 25 04/12/2014 [facility] ELECTROLYTES Globulin 3.4 2.0 - 4.0 04/12/2014 [facility] ELECTROLYTES A/G Ratio 0.9 0.7 - 1.6 04/12/2014 [facility] ELECTROLYTES eGFR 103 04/12/2014 <sup>2</sup>Result Comment: The eGFR is calculated using the CKD-EPI formula. In most young, healthy individuals the eGFR will be >90 mL/min/1.73m2. The eGFR declines with age. An eGFR of 60-89 may be normal in some populations, particularly the elderly, for whom the CKD-EPI formula has not been extensively validated. Use of the eGFR is not recommended in the following populations:& lt;br/>
Individuals with unstable creatinine concentrations, including patients [...] should be multiplied by the estimated BMI. [facility] ELECTROLYTES Bili Total 0.5 0.2 - 1.3 04/12/2014 [facility] ELECTROLYTES Alk Phos 68 39 - 136 04/12/2014 [facility] ELECTROLYTES ALT 28 0 - 65 04/12/2014 [facility] ELECTROLYTES AST 16 0 - 37 04/12/2014 [facility] ELECTROLYTES Total Protein 6.6 6.4 - 8.4 04/12/2014 [facility] ELECTROLYTES Calcium Lvl 8.1 8.5 - 10.5 04/12/2014 [facility] ELECTROLYTES Albumin Lvl 3.2 3.5 - 5.0 04/12/2014 [facility] ELECTROLYTES CO2 28 24 - 32 04/12/2014 [facility] ELECTROLYTES Creatinine Lvl 0.8 0.5 - 1.4 04/12/2014 [facility] ELECTROLYTES Potassium Lvl 3.2 3.5 - 5.1 04/12/2014 [facility] ELECTROLYTES Chloride Lvl 106 95 - 109 04/12/2014 [facility] ELECTROLYTES BUN 14 7 - 22 04/12/2014 [facility] ELECTROLYTES Sodium Lvl 141 135 - 145 04/12/2014 [facility] ELECTROLYTES Glucose Lvl 93 70 - 99 04/12/2014 <sup>5</sup>Interpretive Data: Adult reference range values reflect the clinical guidelines
of the [place] [employer]. [facility] HEMATOLOGY MPV 10.0 7.4 - 10.4 04/12/2014 [facility] HEMATOLOGY WBC 7.9 3.7 - 10.4 04/12/2014 [facility] HEMATOLOGY Hct 41.3 42.0 - 54.0 04/12/2014 [facility] HEMATOLOGY RBC 4.63 4.70 - 6.10 04/12/2014 [facility] HEMATOLOGY Hgb 13.8 14.0 - 18.0 04/12/2014 [facility] HEMATOLOGY RDW 12.9 11.5 - 14.5 04/12/2014 [facility] HEMATOLOGY Platelet 204 133 - 450 04/12/2014 [facility] HEMATOLOGY MCH 29.8 27.0 - 31.0 04/12/2014 [facility] HEMATOLOGY MCHC 33.4 32.0 - 36.0 04/12/2014 [facility] HEMATOLOGY MCV 89.1 80.0 - 94.0 04/12/2014 [facility] HEMATOLOGY Segs 56.9 45.0 - 75.0 04/12/2014 [facility] HEMATOLOGY Lymphocytes 24.5 20.0 - 40.0 04/12/2014 [facility] HEMATOLOGY Monocytes 10.0 2.0 - 12.0 04/12/2014 [facility] HEMATOLOGY Segs-Bands # 4.5 1.5 - 8.1 04/12/2014 [facility] HEMATOLOGY Lymphocytes # 1.9 1.0 - 5.5 04/12/2014 [facility] HEMATOLOGY Monocytes # 0.8 0.0 - 0.8 04/12/2014 [facility] HEMATOLOGY Basophils 0.6 0.0 - 1.0 04/12/2014 [facility] HEMATOLOGY Eosinophils 8.0 0.0 - 4.0 04/12/2014 [facility] HEMATOLOGY Eosinophils # 0.6 0.0 - 0.5 04/12/2014 [facility] LIPIDS VLDL 11 04/12/2014 [facility] LIPIDS LDL (Calculated) 91 <=99 mg/dL 04/12/2014 [facility] LIPIDS Trig 55 <=149 mg/dL 04/12/2014 [facility] LIPIDS Chol 152 <=199 mg/dL 04/12/2014 [facility] LIPIDS HDL 50 >=61 mg/dL 04/12/2014 [facility] LIPIDS CHD Risk 3.04 4.00 - 7.30 04/12/2014 [facility] SPECIAL CHEMISTRY Hgb A1C 5.3 <=5.6 % 04/12/2014 [facility] CARDIAC ENZYMES Troponin-I <0.02 0.00 - 0.40 04/11/2014 [facility] CARDIAC ENZYMES CK MB 0.6 0.5 - 3.6 04/11/2014 [facility] CARDIAC ENZYMES Total CK 75 12 - 191 04/11/2014 [facility] CARDIAC ENZYMES CK MB Index 0.8 0.0 - 2.5 04/11/2014 [facility] CHEM PANEL eGFR 103 04/11/2014 <sup>3</sup>Result Comment: The eGFR is calculated using the CKD-EPI formula. In most young, healthy individuals the eGFR will be >90 mL/min/1.73m2. The eGFR declines with age. An eGFR of 60-89 may be normal in some populations, particularly the elderly, for whom the CKD-EPI formula has not been extensively validated. Use of the eGFR is not recommended in the following populations:& lt;br/>
Individuals with unstable creatinine concentrations, including patients [...] should be multiplied by the estimated BMI. [facility] CHEM PANEL A/G Ratio 1.0 0.7 - 1.6 04/11/2014 [facility] CHEM PANEL Globulin 3.6 2.0 - 4.0 04/11/2014 [facility] CHEM PANEL B/C Ratio 16 6 - 25 04/11/2014 [facility] CHEM PANEL Total Protein 7.1 6.4 - 8.4 04/11/2014 [facility] CHEM PANEL Albumin Lvl 3.5 3.5 - 5.0 04/11/2014 [facility] CHEM PANEL ALT 30 0 - 65 04/11/2014 [facility] CHEM PANEL AGAP 11.2 10.0 - 20.0 04/11/2014 [facility] CHEM PANEL Bili Total 0.5 0.2 - 1.3 04/11/2014 [facility] CHEM PANEL AST 18 0 - 37 04/11/2014 [facility] CHEM PANEL Alk Phos 73 39 - 136 04/11/2014 [facility] CHEM PANEL Creatinine Lvl 0.8 0.5 - 1.4 04/11/2014 [facility] CHEM PANEL Glucose Lvl 89 70 - 99 04/11/2014 <sup>6</sup>Interpretive Data: Adult reference range values reflect the clinical guidelines
of the [place] [employer]. [facility] CHEM PANEL BUN 13 7 - 22 04/11/2014 [facility] CHEM PANEL Calcium Lvl 9.0 8.5 - 10.5 04/11/2014 [facility] CHEM PANEL Chloride Lvl 104 95 - 109 04/11/2014 [facility] CHEM PANEL CO2 27 24 - 32 04/11/2014 [facility] CHEM PANEL Potassium Lvl 3.2 3.5 - 5.1 04/11/2014 [facility] CHEM PANEL Sodium Lvl 139 135 - 145 04/11/2014 [facility] HEMATOLOGY PTT 29.5 22.9 - 35.8 04/11/2014 <sup>8</sup>Interpretive Data: Heparin Therapeutic Range: 57 - 92 Seconds [facility] PT 12.8 12.0 - 14.7 04/11/2014 [facility] INR 0.97 0.85 - 1.17 04/11/2014 <sup>7</sup>Interpretive Data: RECOMMENDED RANGES FOR PROTIME INR:
2.0-3.0 for most medical and surgical thromboembolic states.
2.5-3.5 for artificial heart valves and recurrent embolism.

INR SHOULD BE USED ONLY FOR PATIENTS ON STABLE ANTICOAGULANT THERAPY. [facility] MCHC 34.0 32.0 - 36.0 04/11/2014 [facility] RDW 12.9 11.5 - 14.5 04/11/2014 [facility] Platelet 218 133 - 450 04/11/2014 [facility] MPV 9.8 7.4 - 10.4 04/11/2014 [facility] Hct 41.7 42.0 - 54.0 04/11/2014 [facility] MCV 88.4 80.0 - 94.0 04/11/2014 [facility] MCH 30.1 27.0 - 31.0 04/11/2014 [facility] WBC 9.2 3.7 - 10.4 04/11/2014 [facility] RBC 4.71 4.70 - 6.10 04/11/2014 [facility] Hgb 14.2 14.0 - 18.0 04/11/2014 [facility] Lymphocytes # 2.0 1.0 - 5.5 04/11/2014 [facility] HEMATOLOGY Segs-Bands # 5.7 1.5 - 8.1 04/11/2014 [facility] HEMATOLOGY Monocytes # 0.8 0.0 - 0.8 04/11/2014 [facility] HEMATOLOGY Segs 62.0 45.0 - 75.0 04/11/2014 [facility] Eosinophils 7.3 0.0 - 4.0 04/11/2014 [facility] Basophils 0.8 0.0 - 1.0 04/11/2014 [facility] Monocytes 8.4 2.0 - 12.0 04/11/2014 [facility] HEMATOLOGY Lymphocytes 21.5 20.0 - 40.0 04/11/2014 [facility] Eosinophils # 0.7 0.0 - 0.5 04/11/2014 [facility] Basophils # 0.1 0.0 - 0.2 04/11/2014 [facility] Pathology Reports No Data Provided for This Section Diagnostic Reports Report Value Date Source Shoulder series DX EXAM: Shoulder series DX HISTORY: right shoulder pain COMPARISON: None 3 views of the right shoulder. No fracture is seen. Alignment is normal. There is no significant degenerative change which is radiographically apparent. IMPRESSION: No acute normality. 12/05/2016 JEANNETTE Pearson Ext Lower Venous Doppler Unilat US EXAM: [...] contrast can further evaluate. SL: 14 05/02/2014 [facility] Brain wo contrast MRA MRA OF THE HEAD WITHOUT CONTRAST HISTORY: Aphasia or dysarthria COMPARISON: None. TECHNIQUE: Magnetic resonance angiography of the [place] using TOF imaging. 3-D maximum [...] or aneurysm involving the vessels of the [place]. SL: 04/12/2014 [facility] Brain w/wo contrast MRI MRI BRAIN with [...] abnormality. 2. No abnormal enhancement. SL: 04/12/2014 [facility] Carotid artery Doppler bilat US Exam: Carotid [...] Radiologists in Ultrasound Consensus Panel Criteria. SL: 04/11/2014 [facility] Chest 1view Chest one view: Exam reason: [...] exam. IMPRESSION: No acute cardiopulmonary process noted. SL:04/11/2014 [facility] Brain Stroke wo contrast CT CT head [...] process detected. MRI brain if indicated. SL: 04/11/2014 [facility] Consultation Notes No Data Provided for This Section Discharge Summaries No Data Provided for This Section History and Physicals No Data Provided for This Section Vital Signs Vital Sign Value Date Comments Source Systolic (mm Hg) 124 05/02/2014 [facility] Diastolic (mm Hg) 91 05/02/2014 [facility] Respitory Rate 18 05/02/2014 [facility] Heart Rate 56 05/02/2014 [facility] Temperature Oral (F) 97.6 F 05/02/2014 [facility] Respitory Rate 18 05/02/2014 [facility] Heart Rate 69 05/02/2014 [facility] Systolic (mm Hg) 122 05/02/2014 [facility] Diastolic (mm Hg) 85 05/02/2014 [facility] Temperature Oral (F) 98.1 F 05/02/2014 [facility] Systolic (mm Hg) 144 04/14/2014 [facility] Diastolic (mm Hg) 88 04/14/2014 [facility] Heart Rate 78 04/14/2014 [facility] Temperature Oral (F) 98.2 F 04/14/2014 [facility] Respitory Rate 16 04/14/2014 [facility] Temperature Oral (F) 98.7 F 04/13/2014 [facility] Respitory Rate 14 04/13/2014 [facility] Heart Rate 78 04/13/2014 [facility] Diastolic (mm Hg) 89 04/13/2014 [facility] Systolic (mm Hg) 149 04/13/2014 [facility] Temperature Oral (F) 98.3 F 04/13/2014 [facility] Heart Rate 75 04/13/2014 [facility] Systolic (mm Hg) 148 04/13/2014 [facility] Respitory Rate 14 04/13/2014 [facility] Diastolic (mm Hg) 99 04/13/2014 [facility] BMI Calculated 34.19 04/12/2014 [facility] Weight 93.182 04/12/2014 [facility] Height 165.1 cm 04/12/2014 [facility] Weight 93.182 04/11/2014 [facility] BMI Calculated 34.19 04/11/2014 [facility] Height 165.1 cm 04/11/2014 [facility] Encounters Location Location Details Encounter Type Encounter Number Reason For Visit Attending Provider ADM Date DC Date Status Source OD [id number] 404 - HTN HRT/CHRON K PANKAJ ALLAN 01/12/2012 Active [facility] OD [id number] 719.4 - PAIN IN JOINT PANKAJ KAPLANLAR 02/15/2012 02/15/2012 Active [facility] [id number] Erwin Olivera 04/11/2014 04/14/2014 [facility] [id number] Ivan Ospina 05/02/2014 05/02/2014 [facility] [id number] Pankaj Allan 12/05/2016 12/06/2016 [facility] Procedures No Data Provided for This Section Assessment and Plan Assessment and Plan Date Source Extracted from:Title: Clinical Document Author: Itz Martinez MD Date: [...] denies depression, SI Examination: Vitals and Temp: Vitals Tmp(F) Pulse BP RR SpO2 FIO2 04/11 19:46 99.2 64 121/84 19 96 --- 04/11 19:13 ---- 80 132/80 19 98 --- 04/11 18:19 98.2 75 127/88 19 97 --- 04/11 17:00 ---- 75 130/87 21 97 --- 04/11 14:28 98.1 92 145/87 16 100 --- 24 Hr Tmax: 99.2F (37.33c) at 04/11 19:46 Vital Signs are the last 5 in the [...] to follow. Thank you for this consult. 04/14/2014 [facility] Plan of Care No Data Provided for This Section Social History Social History Date Source Social History TypeResponse Alcohol Current, Frequency: 1-2 times per month. Smoking Status Never smoker; Exposure to Tobacco Smoke None; Cigarette Smoking Last 365 Days No; Reg Smoking Cessation Counseling No 04/12/2014 JEANNETTE Pearson Social History TypeResponse Alcohol Use: Current, Frequency: 1-2 times per month Smoking Status Never smoker, Exposure to Tobacco Smoke None, Cigarette Smoking Last 365 Days No, Reg Smoking Cessation Counseling No 04/12/2014 [facility] Family History No Data Provided for This Section Advance Directives No Data Provided for This Section Functional Status No Data Provided for This Section
== END 2019-04-09 17:15 | disposition home or self-care (01) ==
LOC: ER 16:33
DX: H92.01 Otalgia, right ear (principal); K11.21 Acute sialoadenitis
CPT/HCPCS: 99284

== ENCOUNTER 2019-08-12 18:27 | Emergency (ER) | payer OTHER ==
[~2019-08-12] VITALS: Ht 160 cm; Wt 93.0 kg
== END 2019-08-12 20:10 | disposition home or self-care (01) ==
LOC: ER 18:27
DX: H92.01 Otalgia, right ear (principal); C76.42 Malignant neoplasm of left upper limb
CPT/HCPCS: 99282

== ENCOUNTER 2020-02-24 09:13 | Emergency (ER) | payer MEDICARE ==
[~2020-02-24] VITALS: Ht 160 cm; Wt 93.0 kg
--- OUTSIDE RECORDS SUMMARY | 2020-02-24 09:17 | XMS REPORT | Summary of Care ---
Author Author [facility] Organization [facility] Address Unknown Phone Unavailable Encounter HQ Saurabh_evonne(FIN) [id number] Date(s): 08/08/19 - 08/08/19 [facility] [place] [address] [place] [id number] [phone] Discharge Disposition: Home or Self Care Attending Physician: Aixa Moore MD Referring Physician: Aixa Moore MD Vital Signs No data available for this section Problem List Condition Effective Dates Status Health Status Informan t HTN Resolved (hypertension)(Confi rmed) Parkinsons Resolved disease(Confirmed) Allergies, Adverse Reactions, Alerts Substance Reaction Severity Status Bactrim Active [place] Active Medications No data available for this section Results No data available for this section Immunizations No data available for this section Procedures No data available for this section Social History Social History Type Response Alcohol Current, Frequency: 1-2 rosina es per month. Smoking Status Never smoker; Exposure to T obacco Smoke None; Cigarette Smoking Last 365 Days No; Reg Smoking Cessation Counseli ng No entered on: 04/11/14 Assessment and Plan No data available for this section
--- OUTSIDE RECORDS SUMMARY | 2020-02-24 09:17 | XMS REPORT | Continuity of Care Document ---
Author Author [facility] t Organization [facility] Address [address] [place] [address] Phone Unavailable Care Team Providers Care Lung Splitter Name Role Phone NO, PCP PCP Unavailable Axia Moore Attphys Krystal Allan Attphys Kyle MALIK Attphys Unavailable DAVIE FARAFN Attphys Unavailable Genesis Ospina Attphys Gudino, Madelynihivonnedin Mohammad Attphys [phone] DAVIE FARFAN Admphys Unavailable Gudino, Fasihuddin Mohammad Admphys Payers Payer Name Policy Type Policy Number Effective Date Expiration Date S [facility] Self Pay NA [facility] Problems Condition Name Condition Details Condition Category Status Onset Date Resolution Date Last Treatment Date Treating Clinician Comments Source M25.511 - PAIN IN RIGHT SHOULDER M25.511 - PAIN IN RIGHT SHOULDER Active 12/05/2016 [facility] [place] Diagnosis Active 12-05 00:01:00 2016-12-05 11:30:00 Jose mcrae LEG PAIN LEG PAIN Active 05/01/2014 [facility] Diagnosis Active 2014-05-01 00:00:00 2014-05-02 00:20:00 Jose Guadalupe STROKE LIKE SYMPTOMS STRO KE LIKE SYMPTOMS Active 04/07/2014 [facility] Diagnosis Active 2014-04-07 10:00:00 2014-04-11 16:24:00 Jose Guadalupe CVA CVA Active 04/07/2014 [facility] Diagnosis Active 2014-04-07 10:00:00 2014-04-14 11:04:00 Felipe Guadalupe 719.4 - PAIN IN JOINT 719. 4 - PAIN IN JOINT Active 02/15/2012 [facility] [place] Diagnosis Active 2012-02-15 00:01:00 2012-03-13 08:22:00 [facility] 404 - HTN HRT/CHRON K 404 - HTN HRT/CHRON K Active 01/12/2012 [facility] [place] Diagnosis Active 2012-01-12 00:01:00 2012-01-12 10:25:00 [facility] Pre-syncope Near syncope Problem Active [facility] Rhabdomyolysis Rhabdomyolysis Problem Active [facility] Hypertensive disorder, systemic arterial (disorder) Hypertensive disorder, systemic arterial (disorder) Resolved Problem 08/11/2019 JEANNETTE Pearson, [place] Problem Resolved 2019-08-11 00:09:42 [facility] Parkinson's disease (disorder) Parkinson's disease (disorder) Resolved Problem 08/11/2019 JEANNETTE Pearson, [place] Problem Resolved 2019-08-11 00:09:42 Rafa Guadalupe CVA CVA Active [facility] Diagnosis Active 2014-04-14 11:04:00 [facility] Discharge Diagnosis: Muscle tear Discharge Diagnosis: Muscle tear 05/02/2014 05/05/2014 [place] Problem 20 01-05-15 05:00:00 2014-05-05 03:17:40 2014-05-05 03:17:40 [facility] Allergies, Adverse Reactions, Alerts Allergy Name Allergy Type Status Severity Reaction(s) Onset Date Inacti ve Date Treating Clinician Comments Source Melphalan Allergy to Substance Active 2017-07-03 00:00:00 [facility] mainosyn Allergy to Substance Active 2017-07-03 00:00:00 [facility] Bactrim Bactrim Active [facility] Denair Denair Active [facility] Social History Social Habit Start Date Stop Date Quantity Comments Source Social History 2014-04-12 01:01:27 2014-04-12 01:01:27 [facility] Medications Ordered Medication Name Filled Medication Name Start Date Stop Da te Current Medication? Ordering Clinician Indication Dosage Frequency Signature (SIG) Comments Components Source Acetaminophen With Codeine (Tylenol With Codeine #3 Ta blet) 1 Each Tablet Acetaminophen With Codeine (Tylenol With Codeine #3 Tablet) 1 Each Tablet 2017-10-15 00:00:00 Yes Jumana Jaimes [employer] 300 Every 8 Hours as needed for Pain [facility] Carbidopa/Levodopa (Carbidopa-Levodopa 25-100 Tab) 1 E ach Tablet Carbidopa/Levodopa (Carbidopa-Levodopa 25-100 Tab) 1 Each Tablet 2017-10-15 00:00:00 Yes Jumana Jaimes [employer] Worker 3 Three Times A Day [facility] Carvedilol (Coreg) 12.5 Mg Tab Carvedilol (Coreg) 12.5 Mg Ta b 2017-10-15 00:00:00 Yes Jumana Jaimes [employer] Utility Worker 12.5 Twice A Day [facility] Lisinopril 10 Mg Tablet Lisinopril 10 Mg Tablet 2017-10-15 00:00:00 Yes Jumana Jaimes [employer] Utility Worker 30 Daily [facility] Acetaminophen 325 Mg Tablet Acetaminophen 325 Mg Tablet 2017-07-09 00:00:00 Yes Bautista Grayson Np 650 Every 4 Hours as needed for Pain And Temperature [facility] Ropinirole Hcl (Requip) 1 Mg Tablet Ropinirole Hcl (Requip) 1 Mg Tablet 2017-07-09 00:00:00 Yes Bautista Grayson [employer] Utility Worker 1 Every 6 Hours [facility] Carbidopa/Levodopa (Carbidopa-Levodopa 25-100 Tab) 1 E ach Tablet, 2 Ea Oral Carbidopa/Levodopa (Carbidopa-Levodopa 25-100 Tab) 1 Each Tablet, 2 Ea Oral 2017-07-09 00:00:00 2017-10-12 00:00:00 No Bautista Grayson [employer] Utility Worker 2 Every 6 Hours [facility] Carbidopa/Levodopa (Carbidopa-Levodopa 25-100 Tab) 1 E ach Tablet, 1 Ea Oral Carbidopa/Levodopa (Carbidopa-Levodopa 25-100 Tab) 1 Each Tablet, 1 Ea Oral 2017-07-09 00:00:00 2017-10-12 00:00:00 No Bautista Grayson [employer] Utility Worker 1 Bid@09,15 [facility] Hydrochlorothiazide (Esidrix*) 25 Mg Tab, 25 Mg Oral H ydrochlorothiazide (Esidrix*) 25 Mg Tab, 25 Mg Oral 2017-07-09 00:00:00 2017-10-12 00:00:00 No Bautista Grayson [employer] Worker 25 Daily [facility] Multivitamins/Minerals Tab, 1 Oral Multivitamins/Minerals T ab, 1 Oral 2017-07-09 00:00:00 2017-10-12 00:00:00 No Bautista Grayson [employer] Utility Worker 1 Daily [facility] Nystatin ([facility]) 15 Gm Powd, 1 Gm Topically Nystatin ([facility]) 15 Gm Powd, 1 Gm Topically 2017-07-09 00:00:00 2017-10-12 00:00:00 No Bautista Grayson [employer] Worker 1 Twice A Day [facility] Motrin 2014-05-02 05:28:00 No 600 mg, Route: PO, Drug form: TAB, ONCE, Dosing Weight 93.182, kg, Priority: STAT, Start date: 05/02/14 0:28:00, Stop date: 05/02/14 0:28:00 [facility] mcrae Hydrocodone Bitartrate 7.5 MG / Ibuprofen 200 MG Oral Tablet [Vicoprofen] 2014-05-02 05:18:00 No 1 tab, Route: PO, Dosing Weight 93.182, kg, ONCE, Start date: 05/02/14 0:18:00, Stop date: 05/02/14 0:18:00 [facility] aspirin 325 mg tablet 2014-04-13 22:07:00 Yes 325 mg = 1 tab, PO, Daily, # 100 tab, 3 Refill(s) [facility] albinlily Carbidopa 25 MG / Levodopa 100 MG Oral Tablet [Sinemet 25-10 0] 2014-04-13 22:06:00 Yes 1 tab, NG, TID, # 30 tab, 3 R efill(s) [facility] Carbidopa 25 MG / Levodopa 100 MG Oral Tablet [Sinemet 25-10 0] 2014-04-12 22:00:00 No Notes: "Do Not Crush" Take with milk or food. (Same As: Sinemet CR) [facility] pantoprazole 2014-04-12 21:30:00 No Notes: For IV push reconstitute with 10 ml 0.9% sodium chloride and push over 2 minutes. (Same as: Protonix) [facility] Aspirin / Calcium Carbonate 2014-04-12 14:00:00 No Notes: Take with food. [facility] Simvastatin 2014-04-12 02:00:00 No Notes: ( Same as: Zocor) [facility] Saline Flush 0.9% 2014-04-12 02:00:00 No Notes: (Same as: BD Posiflush) [facility] Saline Flush 0.9% 2014-04-12 01:13:00 No Notes: (Same as: BD Posiflush) [facility] Enoxaparin 2014-04-12 01:00:00 No Notes: (S fabiana as: Lovenox) [facility] normal saline 0.9% IV 1,000 mL 2014-04-12 00:44:00 No 1,000 mL, Rate: 100 ml/hr, Infuse over: 10 hr, Route: IV, Dosing Weight 93.182 kg, Total Volume: 1,000, Start date: 04/11/14 19:44:00, Duration: 30 day, Stop date: 05/11/14 19:43:00 [facility] Azilect 2014-04-11 23:08:00 Yes 0.5 mg, PO, Daily, 0 Refill(s) [facility] Hydrochlorothiazide 2014-04-11 23:08:00 Yes 12.5 mg, PO, Daily, 0 Refill(s) [facility] valsartan 320 MG Oral Tablet [Diovan] 2014-04-11 23:08:00 Y es 320 mg = 1 tab, PO, Daily, # 30 tab, 0 Refill(s) [facility] rasagiline 1 MG Oral Tablet [Azilect] 2014-04-11 23:08:00 Y es 1 mg = 1 tab, PO, Daily, # 30 tab, 0 Refill(s) [facility] Potassium Chloride 2014-04-11 23:00:00 No Notes: (Same as: KCL) Infuse no faster than 10 mEq/hr if given peripherally. [facility] Aspirin / Calcium Carbonate 2014-04-11 20:44:00 No Notes: Take with food. [facility] Saline Flush 0.9% 2014-04-11 20:43:00 No Notes: (Same as: BD Posiflush) [facility] Rasagiline Mesylate (Azilect) 1 Mg Tablet Rasagiline M esylate (Azilect) 1 Mg Tablet Yes 1 Daily [facility] Valsartan (Diovan) 320 Mg Tablet Valsartan (Diovan) 320 Mg Tablet Yes 320 Daily [facility] Rytary , 48.74-195 Mg Oral Rytary , 48.74-195 Mg Oral 2017 00:00:00 No [facility] Rasagiline Mesylate (Azilect) 1 Mg Tablet, 1 Mg Oral R asagiline Mesylate (Azilect) 1 Mg Tablet, 1 Mg Oral 2017-10-12 00:00:00 No 1 Daily [facility] Carbidopa/Levodopa (Sinemet 25-100 Mg Tablet) 1 Each T ablet, 1 Each Oral Carbidopa/Levodopa (Sinemet 25-100 Mg Tablet) 1 Each Tablet, 1 Each Oral 2017-07-09 00:00:00 No 1 Q5hr [facility] Ropinirole Hcl 1 Mg Tablet, Mg Oral Ropinirole Hcl 1 Mg Tablet, Mg Oral 2017-07-09 00:00:00 No Twice A Day [facility] Vital Signs Vital Name Observation Time Observation Value Comments Source Systolic (mm Hg) 2014-05-02 08:11:00 Miko rial Josephine Diastolic (mm Hg) 2014-05-02 08:11:00 Mem o[facility] [place] Respitory Rate 2014-05-02 08:11:00 Memori al [facility] Heart Rate 2014-05-02 08:11:00 [facility] Temperature Oral (F) 2014-05-02 08:11:00 97.6 F [facility] Respitory Rate 2014-05-02 03:58:00 [facility] [place] Heart Rate 2014-05-02 03:58:00 [facility] Systolic (mm Hg) 2014-05-02 03:58:00 Miko rial Josephine Diastolic (mm Hg) 2014-05-02 03:58:00 Mem orial [facility] Temperature Oral (F) 2014-05-02 03:58:00 98.1 F [facility] Systolic (mm Hg) 2014-04-14 01:02:00 Miko rial Josephine Diastolic (mm Hg) 2014-04-14 01:02:00 Mem orial [place] Heart Rate 2014-04-14 01:02:00 [facility] Temperature Oral (F) 2014-04-14 01:02:00 98.2 F [facility] Respitory Rate 2014-04-14 01:02:00 [facility] [place] Temperature Oral (F) 2014-04-13 21:54:00 98.7 F [facility] Respitory Rate 2014-04-13 21:54:00 [facility] Heart Rate 2014-04-13 21:54:00 [facility] Diastolic (mm Hg) 2014-04-13 21:54:00 Mem orial [facility] Systolic (mm Hg) 2014-04-13 21:54:00 Miko rial [place] Temperature Oral (F) 2014-04-13 17:04:00 98.3 F [facility] Heart Rate 2014-04-13 17:04:00 [facility] Systolic (mm Hg) 2014-04-13 17:04:00 Miko rial [place] Respitory Rate 2014-04-13 17:04:00 [facility] [place] Diastolic (mm Hg) 2014-04-13 17:04:00 [facility] BMI Calculated 2014-04-12 01:02:00 [facility] Weight 2014-04-12 01:02:00 [facility] Height 2014-04-12 01:02:00 165.1 cm [facility] Weight 2014-04-11 19:28:00 [facility] BMI Calculated 2014-04-11 19:28:00 [facility] Height 2014-04-11 19:28:00 165.1 cm [facility] Procedures Procedure Date / Time Performed Performing Clinician [facility] e X-ray of chest, two views 2018-11-29 00:00:00 ROSETTE MALIK [facility] Encounters Start Date/Time End Date/Time [facility] ID Source 2019-08-12 18:27:00 2019-08-12 20:10:00 Departed Emergency Room [facility] [id number] [facility] 2019-08-08 14:03:00 2019-08-08 23:59:00 Outpatient Aixa Moore [facility] [id number] 2019-08-02 15:32:00 2019-08-02 23:59:00 Outpatient Bubba Allan [facility] [id number] 2019-04-09 16:33:00 2019-04-09 17:15:00 Departed Emergency Room [facility] [id number] [facility] 2018-11-28 23:26:00 2018-11-29 04:05:00 Departed Emergency Room 1 DC MALIK [facility] [id number] [facility] 2016-12-05 10:51:00 2016-12-05 23:59:00 Outpatient Bubba Allan [facility] [id number] 2014-05-01 22:47:00 2014-05-02 03:27:00 Outpatient Ivan Ospina [facility] [id number] 2014-04-11 14:26:00 2014-04-13 20:30:00 [id number] Results Test Description Test Time Test Comments Results Result Comments Source Troponin I 2018-11-29 04:00:00 Test Item Troponin I (test code = WSQ7011) < 0.001 0-0.300 [facility] [id number] 04:00:00* Test Item Value Reference Range Interpretation Comments Troponin I (test code = DSG2232) < 0.001 0-0.300 [facility] [id number] 04:00:00* Test Item Value Reference Range Interpretation Comments Troponin I (test code = UHM3812) < 0.001 0-0.300 [facility] CenterCreat[facility] [id number] 02:56:00* Test Item Value Reference Range Interpretation Comments Creatine Kinase (test code = 2157-6) 84 30-200 [facility] Kinase [id number] 02:56:00* Test Item Value Reference Range Interpretation Comments Creatine Kinase MB (test code = 85699-2) 1.30 0-5.0 [facility] [id number] 02:56:00* Test Item Value Reference Range Interpretation Comments Creatine Kinase (test code = 2157-6) 84 30-200 [facility] Kinase [id number] 02:56:00* Test Item Value Reference Range Interpretation Comments Creatine Kinase MB (test code = 44866-5) 1.30 0-5.0 [facility] Center[facility] [id number] 02:56:00* Test Item Value Reference Range Interpretation Comments Creatine Kinase (test code = 2157-6) 84 30-200 [facility] Kinase [id number] 02:56:00* Test Item Value Reference Range Interpretation Comments Creatine Kinase MB (test code = 75809-5) 1.30 0-5.0 [facility] CenterCHEST 2 [id number] 00:38:00 [place] [address] Patient Name: MIKE ALEJO MR #: [id number] : 1960 Age/Sex: 58/M Req #: [id number] Adm Physician: Ordered by: DC MALIK MD Report #: [id number] Location: ER Room/Bed: Procedure: 0314-001 1 DX/CHEST 2 VIEWS Exam Date: 11/29/18 Exam Time: 00 20 REPORT STATUS: Signed EXAMINA TION: CHEST 2 VIEWS INDICATION: CHEST PAIN, GARZON COMPARISON: None FINDINGS: TUBES and LINES: None. LUNGS: Bilateral subsegmenta l atelectasis. There is no evidence of pneumonia or pulmonary edema. PLE URA: No pleural effusion or pneumothorax. HEART AND MEDIASTINUM: The card iomediastinal silhouette is unremarkable. BONES AND SOFT TISSUES: No a cute osseous lesion. Soft tissues are unremarkable. UPPER ABDOMEN: No fr ee air under the diaphragm. IMPRESSION: Bilateral subsegmental atele ctasis. Signed by: Dr. Monica Maya M.D. on 11/29/2018 12:43 AM Dictated By: SHIRA MAYA MD, MD Transcribed By: CATALINA on 11/29/1842 COPY TO: DC MALIK MD Sodium [id number] 00:14:00* Test Item Value Reference Range Interpretation Comments Sodium Level (test code = 2951-2) 136 136-145 [facility] CenterPot[facility] [id number] 00:14:00* Test Item Value Reference Range Interpretation Comments Potassium Level (test code = 2823-3) 3.4 3.5-5.1 L [facility] CenterChloride [id number] 00:14:00* Test Item Value Reference Range Interpretation Comments Chloride Level (test code = 2075-0) 102 98-107 [facility] CenterCarbon Dioxide [id number] 00:14:00* Test Item Value Reference Range Interpretation Comments Carbon Dioxide Level (test code = 2028-9) 25 22-29 [facility] CenterAnion [id number] 00:14:00* Test Item Value Reference Range Interpretation Comments Anion Gap (test code = 40494-7) 12.4 8-16 [facility] CenterBlood Urea [id number] 00:14:00* Test Item Value Reference Range Interpretation Comments Blood Urea Nitrogen (test code = 3094-0) 17 7-26 [facility] CenterCreatinine2019-03-14 00:14:00* Test Item Value Reference Range Interpretation Comments Creatinine (test code = 2160-0) 0.77 0.72-1.25 [facility] CenterBUN/Creatinine [id number] 00:14:00* Test Item Value Reference Range Interpretation Comments BUN/Creatinine Ratio (test code = 3097-3) 22 6-25 [facility] CenterEstimat Glomerular Filtration Rate 2018-11-29 00:14:00* Test Item Value Reference Range Interpretation Comments Estimat Glomerular Filtration Rate (test code = 757675003) > 60 >60 Ranges were taken from the National Kidney Disease Education Program and the [facility] Kidney Foundation literature.Reference ranges:60 or greater: Fimhpu25-05 ( for 3 consecutive months): Chronic kidney disease 15 or less: Kidney failureMethodist Midlothian Medical CenterGlucose Uonta0724-04-80 00:14:00* Test Item Value Reference Range Interpretation Comments Glucose Level (test code = ETC8400) 111 74-118 [facility] CenterCalcium [id number] 00:14:00* Test Item Value Reference Range Interpretation Comments Calcium Level (test code = 12221-2) 9.0 8.4-10.2 [facility] CenterTotal Fjalotdni2677-75-96 00:14:00* Test Item Value Reference Range Interpretation Comments Total Bilirubin (test code = 1975-2) 0.4 0.2-1.2 [facility] CenterAspartate Amino Transf (AST/SGOT) 2018-11-29 00:14:00* Test Item Value Reference Range Interpretation Comments Aspartate Amino Transf (AST/SGOT) (test code = Aspartate Amino Transf (AST/SGOT)) 18 5-34 [facility] CenterAlanine Aminotransferase (ALT/SGPT) 2018-11-29 00:14:00* Test Item Value Reference Range Interpretation Comments Alanine Aminotransferase (ALT/SGPT) (test code = 1742-6) < 6 0-55 [facility] CenterTotal [id number] 00:14:00* Test Item Value Reference Range Interpretation Comments Total Protein (test code = 2885-2) 7.4 6.5-8.1 [facility] CenterAlbumin2019-03-14 00:14:00* Test Item Value Reference Range Interpretation Comments Albumin (test code = 1751-7) 3.6 3.5-5.0 [facility] CenterGlobulin2019-03-14 00:14:00* Test Item Value Reference Range Interpretation Comments Globulin (test code = 56883-7) 3.8 2.3-3.5 H [facility] CenterAlbumin/Globulin [id number] 00:14:00 * Test Item Value Reference Range Interpretation Comments Albumin/Globulin Ratio (test code = 1759-0) 0.9 0.8-2.0 [facility] CenterAlkaline [id number] 00:14:00* Test Item Value Reference Range Interpretation Comments Alkaline Phosphatase (test code = 6768-6) 86 40-150 [facility] Iyutq1129-80-82 00:14:00* Test Item Value Reference Range Interpretation Comments Sodium Level (test code = 2951-2) 136 136-145 [facility] CenterPotassium [id number] 00:14:00* Test Item Value Reference Range Interpretation Comments Potassium Level (test code = 2823-3) 3.4 3.5-5.1 L [facility] CenterChloride Mxzex5751-83-11 00:14:00* Test Item Value Reference Range Interpretation Comments Chloride Level (test code = 2075-0) 102 98-107 [facility] CenterCarbon Dioxide [id number] 00:14:00* Test Item Value Reference Range Interpretation Comments Carbon Dioxide Level (test code = 2028-9) 25 22-29 [facility] CenterAnion [id number] 00:14:00* Test Item Value Reference Range Interpretation Comments Anion Gap (test code = 39631-6) 12.4 8-16 [facility] CenterBlood Urea [id number] 00:14:00* Test Item Value Reference Range Interpretation Comments Blood Urea Nitrogen (test code = 3094-0) 17 7-26 [facility] CenterCreatinine2019-03-14 00:14:00* Test Item Value Reference Range Interpretation Comments Creatinine (test code = 2160-0) 0.77 0.72-1.25 [facility] CenterBUN/Creatinine [id number] 00:14:00* Test Item Value Reference Range Interpretation Comments BUN/Creatinine Ratio (test code = 3097-3) 22 6-25 [facility] CenterEstimat Glomerular Filtration Rate 2018-11-29 00:14:00* Test Item Value Reference Range Interpretation Comments Estimat Glomerular Filtration Rate (test code = 702919637) > 60 >60 Ranges were taken from the National Kidney Disease Education Program and the [facility] Kidney Foundation literature.Reference ranges:60 or greater: Pxwgjq86-32 ( for 3 consecutive months): Chronic kidney disease 15 or less: Kidney failureCHI [facility]roeGlucose [id number] 00:14:00* Test Item Value Reference Range Interpretation Comments Glucose Level (test code = HXO1880) 111 74-118 [facility] CenterCalcium [id number] 00:14:00* Test Item Value Reference Range Interpretation Comments Calcium Level (test code = 29903-8) 9.0 8.4-10.2 [facility] CenterTotal Kwilvgjlm1496-01-56 00:14:00* Test Item Value Reference Range Interpretation Comments Total Bilirubin (test code = 1975-2) 0.4 0.2-1.2 [facility] CenterAspartate Amino Transf (AST/SGOT) 2018-11-29 00:14:00* Test Item Value Reference Range Interpretation Comments Aspartate Amino Transf (AST/SGOT) (test code = Aspartate Amino Transf (AST/SGOT)) 18 5-34 [facility] CenterAlanine Aminotransferase (ALT/SGPT) 2018-11-29 00:14:00* Test Item Value Reference Range Interpretation Comments Alanine Aminotransferase (ALT/SGPT) (test code = 1742-6) < 6 0-55 [facility] CenterTotal [id number] 00:14:00* Test Item Value Reference Range Interpretation Comments Total Protein (test code = 2885-2) 7.4 6.5-8.1 [facility] CenterAlbumin2019-03-14 00:14:00* Test Item Value Reference Range Interpretation Comments Albumin (test code = 1751-7) 3.6 3.5-5.0 [facility] CenterGlobulin2019-03-14 00:14:00* Test Item Value Reference Range Interpretation Comments Globulin (test code = 84142-5) 3.8 2.3-3.5 H [facility] CenterAlbumin/Globulin [id number] 00:14:00 * Test Item Value Reference Range Interpretation Comments Albumin/Globulin Ratio (test code = 1759-0) 0.9 0.8-2.0 [facility] CenterAlkaline Jxlsxnkgtag0982-36-14 00:14:00* Test Item Value Reference Range Interpretation Comments Alkaline Phosphatase (test code = 6768-6) 86 40-150 [facility] Sblvp3824-57-64 00:14:00* Test Item Value Reference Range Interpretation Comments Sodium Level (test code = 2951-2) 136 136-145 [facility] CenterPotassium Vyvca2069-24-51 00:14:00* Test Item Value Reference Range Interpretation Comments Potassium Level (test code = 2823-3) 3.4 3.5-5.1 L [facility] CenterChloride [id number] 00:14:00* Test Item Value Reference Range Interpretation Comments Chloride Level (test code = 2075-0) 102 98-107 [facility] CenterCarbon Dioxide Ebrur3405-08-30 00:14:00* Test Item Value Reference Range Interpretation Comments Carbon Dioxide Level (test code = 2028-9) 25 22-29 [facility] CenterAnion [id number] 00:14:00* Test Item Value Reference Range Interpretation Comments Anion Gap (test code = 05418-5) 12.4 8-16 [facility] CenterBlood Urea [id number] 00:14:00* Test Item Value Reference Range Interpretation Comments Blood Urea Nitrogen (test code = 3094-0) 17 7-26 [facility] CenterCreatinine2019-03-14 00:14:00* Test Item Value Reference Range Interpretation Comments Creatinine (test code = 2160-0) 0.77 0.72-1.25 [facility] CenterBUN/Creatinine Gywwe6385-86-78 00:14:00* Test Item Value Reference Range Interpretation Comments BUN/Creatinine Ratio (test code = 3097-3) 22 6-25 [facility] CenterEstimat Glomerular Filtration Rate 2018-11-29 00:14:00* Test Item Value Reference Range Interpretation Comments Estimat Glomerular Filtration Rate (test code = 991779919) > 60 >60 Ranges were taken from the National Kidney Disease Education Program and the [facility]ney Foundation literature.Reference ranges:60 or greater: Lznvfs37-63 ( for 3 consecutive months): Chronic kidney disease 15 or less: Kidney failureCHI [facility]ca Houston Healthcare ConroeGlucose Leaqq2957-62-74 00:14:00* Test Item Value Reference Range Interpretation Comments Glucose Level (test code = BSS7850) 111 74-118 [facility] CenterCalcium Jekhm8105-20-05 00:14:00* Test Item Value Reference Range Interpretation Comments Calcium Level (test code = 36885-6) 9.0 8.4-10.2 [facility] CenterTotal Ugtnqfemq3688-62-88 00:14:00* Test Item Value Reference Range Interpretation Comments Total Bilirubin (test code = 1975-2) 0.4 0.2-1.2 [facility] CenterAspartate Amino Transf (AST/SGOT) 2018-11-29 00:14:00* Test Item Value Reference Range Interpretation Comments Aspartate Amino Transf (AST/SGOT) (test code = Aspartate Amino Transf (AST/SGOT)) 18 5-34 [facility] CenterAlanine Aminotransferase (ALT/SGPT) 2018-11-29 00:14:00* Test Item Value Reference Range Interpretation Comments Alanine Aminotransferase (ALT/SGPT) (test code = 1742-6) < 6 0-55 [facility] CenterTotal Hskitsd7095-88-03 00:14:00* Test Item Value Reference Range Interpretation Comments Total Protein (test code = 2885-2) 7.4 6.5-8.1 [facility] CenterAlbumin2019-03-14 00:14:00* Test Item Value Reference Range Interpretation Comments Albumin (test code = 1751-7) 3.6 3.5-5.0 [facility] CenterGlobulin2019-03-14 00:14:00* Test Item Value Reference Range Interpretation Comments Globulin (test code = 05378-2) 3.8 2.3-3.5 H [facility] CenterAlbumin/Globulin Erege3215-70-68 00:14:00 * Test Item Value Reference Range Interpretation Comments Albumin/Globulin Ratio (test code = 1759-0) 0.9 0.8-2.0 [facility] CenterAlkaline Lemwtzttwdn9478-53-67 00:14:00* Test Item Value Reference Range Interpretation Comments Alkaline Phosphatase (test code = 6768-6) 86 40-150 [facility] CenterWhite Blood Jprdn3138-36-29 00:05:00* Test Item Value Reference Range Interpretation Comments White Blood Count (test code = 6690-2) 9.08 4.8-10.8 [facility] CenterRed Blood Cehxq4319-37-39 00:05:00* Test Item Value Reference Range Interpretation Comments Red Blood Count (test code = 789-8) 4.89 4.3-5.7 [facility] CenterHemoglobin2019-03-14 00:05:00* Test Item Value Reference Range Interpretation Comments Hemoglobin (test code = 69357-6) 14.7 14.0-18.0 [facility] CenterHematocrit2019-03-14 00:05:00* Test Item Value Reference Range Interpretation Comments Hematocrit (test code = 4544-3) 43.9 38.2-49.6 [facility] CenterMean Corpuscular Qznufg0583-28-02 00:05:00* Test Item Value Reference Range Interpretation Comments Mean Corpuscular Volume (test code = 787-2) 89.8 81-99 [facility] CenterMean Corpuscular Uogmckhiih9799-21-75 00:05:00* Test Item Value Reference Range Interpretation Comments Mean Corpuscular Hemoglobin (test code = 785-6) 30.1 28-32 [facility] CenterMean Corpuscular Hemoglobin Concent 2018-11-29 00:05:00* Test Item Value Reference Range Interpretation Comments Mean Corpuscular Hemoglobin Concent (test code = 786-4) 33.5 31-35 [facility] CenterRed Cell Distribution Zymzd4826-76-97 00:05:00* Test Item Value Reference Range Interpretation Comments Red Cell Distribution Width (test code = 35445-1) 12.4 11.7 -14.4 [facility] CenterPlatelet Hsqme0492-17-49 00:05:00* Test Item Value Reference Range Interpretation Comments Platelet Count (test code = 777-3) 246 140-360 [facility] CenterNeutrophils (%) (Auto)2018-11-29 00:05:00 * Test Item Value Reference Range Interpretation Comments Neutrophils (%) (Auto) (test code = 55850-7) 63.5 38.7-80.0 [facility] CenterLymphocytes (%) (Auto)2018-11-29 00:05:00 * Test Item Value Reference Range Interpretation Comments Lymphocytes (%) (Auto) (test code = 736-9) 22.6 18.0-39.1 [facility] CenterMonocytes (%) (Auto)2018-11-29 00:05:00* Test Item Value Reference Range Interpretation Comments Monocytes (%) (Auto) (test code = 5905-5) 9.9 4.4-11.3 [facility] CenterEosinophils (%) (Auto)2018-11-29 00:05:00 * Test Item Value Reference Range Interpretation Comments Eosinophils (%) (Auto) (test code = 713-8) 3.2 0.0-6.0 [facility] CenterBasophils (%) (Auto)2018-11-29 00:05:00* Test Item Value Reference Range Interpretation Comments Basophils (%) (Auto) (test code = 706-2) 0.6 0.0-1.0 [facility] CenterIM GRANULOCYTES %2018-11-29 00:05:00* Test Item Value Reference Range Interpretation Comments IM GRANULOCYTES % (test code = IM GRANULOCYTES %) 0.2 0.0- 1.0 [facility] CenterNeutrophils # (Auto)2018-11-29 00:05:00* Test Item Value Reference Range Interpretation Comments Neutrophils # (Auto) (test code = 751-8) 5.8 2.1-6.9 [facility] CenterLymphocytes # (Auto)2018-11-29 00:05:00* Test Item Value Reference Range Interpretation Comments Lymphocytes # (Auto) (test code = 42161-3) 2.1 1.0-3.2 [facility] CenterMonocytes # (Auto)2018-11-29 00:05:00* Test Item Value Reference Range Interpretation Comments Monocytes # (Auto) (test code = 742-7) 0.9 0.2-0.8 H [facility] CenterEosinophils # (Auto)2018-11-29 00:05:00* Test Item Value Reference Range Interpretation Comments Eosinophils # (Auto) (test code = 711-2) 0.3 0.0-0.4 [facility] CenterBasophils # (Auto)2018-11-29 00:05:00* Test Item Value Reference Range Interpretation Comments Basophils # (Auto) (test code = 704-7) 0.1 0.0-0.1 [facility] CenterAbsolute Immature Granulocyte (auto 2018-11-29 00:05:00* Test Item Value Reference Range Interpretation Comments Absolute Immature Granulocyte (auto (marilin t code = Absolute Immature Granulocyte (auto) 0.02 0-0.1 [facility] CenterWhite Blood Dxreo8594-26-56 00:05:00* Test Item Value Reference Range Interpretation Comments White Blood Count (test code = 6690-2) 9.08 4.8-10.8 [facility] CenterRed Blood Vwsba7359-56-30 00:05:00* Test Item Value Reference Range Interpretation Comments Red Blood Count (test code = 789-8) 4.89 4.3-5.7 [facility] CenterHemoglobin2019-03-14 00:05:00* Test Item Value Reference Range Interpretation Comments Hemoglobin (test code = 77999-1) 14.7 14.0-18.0 [facility] CenterHematocrit2019-03-14 00:05:00* Test Item Value Reference Range Interpretation Comments Hematocrit (test code = 4544-3) 43.9 38.2-49.6 [facility] CenterMean Corpuscular Vxkuwp2712-79-14 00:05:00* Test Item Value Reference Range Interpretation Comments Mean Corpuscular Volume (test code = 787-2) 89.8 81-99 [facility] CenterMean Corpuscular Mewbubczmx7372-99-94 00:05:00* Test Item Value Reference Range Interpretation Comments Mean Corpuscular Hemoglobin (test code = 785-6) 30.1 28-32 [facility] CenterMean Corpuscular Hemoglobin Concent 2018-11-29 00:05:00* Test Item Value Reference Range Interpretation Comments Mean Corpuscular Hemoglobin Concent (test code = 786-4) 33.5 31-35 [facility] CenterRed Cell Distribution Gfmbw6625-43-37 00:05:00* Test Item Value Reference Range Interpretation Comments Red Cell Distribution Width (test code = 40230-8) 12.4 11.7 -14.4 [facility] CenterPlatelet Nuwzq0873-68-57 00:05:00* Test Item Value Reference Range Interpretation Comments Platelet Count (test code = 777-3) 246 140-360 [facility] CenterNeutrophils (%) (Auto)2018-11-29 00:05:00 * Test Item Value Reference Range Interpretation Comments Neutrophils (%) (Auto) (test code = 04285-8) 63.5 38.7-80.0 [facility] CenterLymphocytes (%) (Auto)2018-11-29 00:05:00 * Test Item Value Reference Range Interpretation Comments Lymphocytes (%) (Auto) (test code = 736-9) 22.6 18.0-39.1 [facility] CenterMonocytes (%) (Auto)2018-11-29 00:05:00* Test Item Value Reference Range Interpretation Comments Monocytes (%) (Auto) (test code = 5905-5) 9.9 4.4-11.3 [facility] CenterEosinophils (%) (Auto)2018-11-29 00:05:00 * Test Item Value Reference Range Interpretation Comments Eosinophils (%) (Auto) (test code = 713-8) 3.2 0.0-6.0 [facility] CenterBasophils (%) (Auto)2018-11-29 00:05:00* Test Item Value Reference Range Interpretation Comments Basophils (%) (Auto) (test code = 706-2) 0.6 0.0-1.0 [facility] CenterIM GRANULOCYTES %2018-11-29 00:05:00* Test Item Value Reference Range Interpretation Comments IM GRANULOCYTES % (test code = IM GRANULOCYTES %) 0.2 0.0- 1.0 [facility] CenterNeutrophils # (Auto)2018-11-29 00:05:00* Test Item Value Reference Range Interpretation Comments Neutrophils # (Auto) (test code = 751-8) 5.8 2.1-6.9 [facility] CenterLymphocytes # (Auto)2018-11-29 00:05:00* Test Item Value Reference Range Interpretation Comments Lymphocytes # (Auto) (test code = 11697-2) 2.1 1.0-3.2 [facility] CenterMonocytes # (Auto)2018-11-29 00:05:00* Test Item Value Reference Range Interpretation Comments Monocytes # (Auto) (test code = 742-7) 0.9 0.2-0.8 H [facility] CenterEosinophils # (Auto)2018-11-29 00:05:00* Test Item Value Reference Range Interpretation Comments Eosinophils # (Auto) (test code = 711-2) 0.3 0.0-0.4 [facility] CenterBasophils # (Auto)2018-11-29 00:05:00* Test Item Value Reference Range Interpretation Comments Basophils # (Auto) (test code = 704-7) 0.1 0.0-0.1 [facility] CenterAbsolute Immature Granulocyte (auto 2018-11-29 00:05:00* Test Item Value Reference Range Interpretation Comments Absolute Immature Granulocyte (auto (marilin t code = Absolute Immature Granulocyte (auto) 0.02 0-0.1 [facility] CenterWhite Blood Iwtwr9128-04-47 00:05:00* Test Item Value Reference Range Interpretation Comments White Blood Count (test code = 6690-2) 9.08 4.8-10.8 [facility] CenterRed Blood Ffdir2724-76-49 00:05:00* Test Item Value Reference Range Interpretation Comments Red Blood Count (test code = 789-8) 4.89 4.3-5.7 [facility] CenterHemoglobin2019-03-14 00:05:00* Test Item Value Reference Range Interpretation Comments Hemoglobin (test code = 81784-1) 14.7 14.0-18.0 [facility] CenterHematocrit2019-03-14 00:05:00* Test Item Value Reference Range Interpretation Comments Hematocrit (test code = 4544-3) 43.9 38.2-49.6 [facility] CenterMean Corpuscular Ekyluj6892-54-52 00:05:00* Test Item Value Reference Range Interpretation Comments Mean Corpuscular Volume (test code = 787-2) 89.8 81-99 [facility] CenterMean Corpuscular Hrrxitdxfb2354-65-25 00:05:00* Test Item Value Reference Range Interpretation Comments Mean Corpuscular Hemoglobin (test code = 785-6) 30.1 28-32 [facility] CenterMean Corpuscular Hemoglobin Concent 2018-11-29 00:05:00* Test Item Value Reference Range Interpretation Comments Mean Corpuscular Hemoglobin Concent (test code = 786-4) 33.5 31-35 [facility] CenterRed Cell Distribution Othak6287-28-85 00:05:00* Test Item Value Reference Range Interpretation Comments Red Cell Distribution Width (test code = 57633-9) 12.4 11.7 -14.4 [facility] CenterPlatelet Hhfrs0659-62-86 00:05:00* Test Item Value Reference Range Interpretation Comments Platelet Count (test code = 777-3) 246 140-360 [facility] CenterNeutrophils (%) (Auto)2018-11-29 00:05:00 * Test Item Value Reference Range Interpretation Comments Neutrophils (%) (Auto) (test code = 44247-7) 63.5 38.7-80.0 [facility] CenterLymphocytes (%) (Auto)2018-11-29 00:05:00 * Test Item Value Reference Range Interpretation Comments Lymphocytes (%) (Auto) (test code = 736-9) 22.6 18.0-39.1 [facility] CenterMonocytes (%) (Auto)2018-11-29 00:05:00* Test Item Value Reference Range Interpretation Comments Monocytes (%) (Auto) (test code = 5905-5) 9.9 4.4-11.3 [facility] CenterEosinophils (%) (Auto)2018-11-29 00:05:00 * Test Item Value Reference Range Interpretation Comments Eosinophils (%) (Auto) (test code = 713-8) 3.2 0.0-6.0 [facility] CenterBasophils (%) (Auto)2018-11-29 00:05:00* Test Item Value Reference Range Interpretation Comments Basophils (%) (Auto) (test code = 706-2) 0.6 0.0-1.0 [facility] CenterIM GRANULOCYTES %2018-11-29 00:05:00* Test Item Value Reference Range Interpretation Comments IM GRANULOCYTES % (test code = IM GRANULOCYTES %) 0.2 0.0- 1.0 [facility] CenterNeutrophils # (Auto)2018-11-29 00:05:00* Test Item Value Reference Range Interpretation Comments Neutrophils # (Auto) (test code = 751-8) 5.8 2.1-6.9 [facility] CenterLymphocytes # (Auto)2018-11-29 00:05:00* Test Item Value Reference Range Interpretation Comments Lymphocytes # (Auto) (test code = 44970-3) 2.1 1.0-3.2 [facility] CenterMonocytes # (Auto)2018-11-29 00:05:00* Test Item Value Reference Range Interpretation Comments Monocytes # (Auto) (test code = 742-7) 0.9 0.2-0.8 H [facility] CenterEosinophils # (Auto)2018-11-29 00:05:00* Test Item Value Reference Range Interpretation Comments Eosinophils # (Auto) (test code = 711-2) 0.3 0.0-0.4 [facility] CenterBasophils # (Auto)2018-11-29 00:05:00* Test Item Value Reference Range Interpretation Comments Basophils # (Auto) (test code = 704-7) 0.1 0.0-0.1 [facility] CenterAbsolute Immature Granulocyte (auto 2018-11-29 00:05:00* Test Item Value Reference Range Interpretation Comments Absolute Immature Granulocyte (auto (marilin t code = Absolute Immature Granulocyte (auto) 0.02 0-0.1 [facility] CenterCHEM BMTVJ8200-90-25 09:21:008.5[facility]annCHEM TKHDP2829-80-93 09:21:000.9[facility] HermannCHEM LYMYG5758-18-31 09:21:93656Wlcpgzut HermannCHEM SLGGK9456-43-53 09:21:003.6[facility]annCHEM CVYAO6240-77-18 09:21:0029[facility]annCHEM BOUPD3960-65-00 09:21:18390 [facility]annCHEM VZSAL3760-21-22 09:21:0016[facility]annCHEM PANEL 2014-04-13 09:21:0096[facility]annCHEM DOQBZ9975-17-46 09:21:0098[facility]annCHEM QYQTN2071-40-64 09:21:0010.6[facility] VcqrvhhQDWNBDKPAF2028-54-68 09:21:0010.0[facility] XstgekjXVKCSSNBJT6201-30-46 09:21:78316Nhypiwen Collins XWQFXBZHNM3139-99-09 09:21:0013.2[facility] WysbyjkPDOHLUHDJJ8680-99-04 09:21:00 89.3[facility] LxrsbqjJPEMRZEUKO8646-22-03 09:21:004.42[facility] HermannHEMATOLOGY 2014-04-13 09:21:009.0[facility] PiteuzjDMSXYIQPDT5184-44-39 09:21:0039.5[facility] FcrusclLDOWUYEZSL6603-96-68 09:21:00* Test Item Value Reference Range Interpretation Comments MCH (test code = MCH) 29.9 pg 27.0-31.0 [facility] AchomnqGXKIZWNUJD6751-83-28 09:21:0033.5[facility] HermannHEMATOLOGY 2014-04-13 09:21:0013.2[facility] BdcwjxlXXMSWRPPZM4758-69-87 09:21:000.1[facility] XowerlmYUFNQZPMLW8977-17-01 09:21:000.8[facility] TcctxgjZAZGVRKAMU8904-21-12 09:21:000.8[facility] XoookswOOITWSRXIG4928-71-40 09:21:002.5[facility] NYOOCUFPEU6952-54-52 09:21:0054.1[facility] YiiazjvEJPTNNATVM6699-36-10 09:21:00 9.2[facility] FfygkarEMZAPELHYR8446-27-18 09:21:008.8[facility] HermannHEMATOLOGY 2014-04-13 09:21:004.9[facility] ZisafaqBTIHPEKTNG7142-20-70 09:21:0027.2[facility] OnyyqcgAZLYNYRWJZ2943-97-30 09:21:000.7[facility] GxfakkcUNHSZDNALWCY0716-12-45 08:52:0010.2[facility] AgjnmuuWYZVVTVUSAII6814-94-52 08:52:0018[facility] UOIUNBBFROZE9132-00-66 08:52:003.4[facility] VtmiqfwRUNRHWHSXOUO9167-74-01 08:52:000.9[facility] YvrwgswOIAHPWOOALTH2824-58-12 08:52:33533Qofofzzt Collins AUZWUZQOUUWN5491-82-61 08:52:000.5[facility] LzculypBJCNTEXWTCDV5926-24-27 08:52:0068[facility] LfsmmlcAYHGZDEOLKZE2864-96-89 08:52:0028[facility] VXBDDIASAUPI8390-87-08 08:52:0016[facility] HqxtqduZOLGBFRANMVX2452-79-38 08:52:00 6.6[facility] WdximsrYWGLYGAZRTRM0737-36-32 08:52:008.1[facility] EOBLUCXAODWG9182-06-81 08:52:003.2[facility] JrwnoavGHSTIJVGYKWV3873-72-88 08:52:0028[facility] SzphnbwKIXQSNCMLPEJ0540-83-84 08:52:000.8[facility] PDATSPJBPKSP4698-91-78 08:52:003.2[facility] UehqbssGWYUMROSZFJC0352-12-98 08:52:33716Cdmabobl JbzghjfITIRRJFJRIFD9984-24-58 08:52:0014[facility] DGYKBSGVVHNS6945-35-47 08:52:41436Dfhgjipc CdhwetmBQRLYBJETMJH0668-14-33 08:52:0093[facility] NryowgvTWEVDEPEUM0539-04-87 08:52:0010.0[facility] TAMIQCIGVU4778-47-56 08:52:007.9[facility] EcpgpjiTQYLXDMGVT2925-63-52 08:52:00 41.3[facility] HychhxbGCPGMNLQKL5914-05-92 08:52:004.63[facility]annHEMATOLOGY 2014-04-12 08:52:0013.8[facility] OuuqxgeSTMJEHSCZI9790-92-22 08:52:0012.9[facility] HnckehzTSOIDLOVMQ2267-05-07 08:52:07412Povybfdd NvcxulwUUSQAKDUSN1603-74-36 08:52:00* Test Item Value Reference Range Interpretation Comments MCH (test code = MCH) 29.8 pg 27.0-31.0 [facility] OgcgtbiEXHGTHMQBE5237-50-34 08:52:0033.4[facility]annHEMATOLOGY 2014-04-12 08:52:0089.1[facility] JrlfcddPAGSZZEWNA3691-97-69 08:52:0056.9[facility] ElbpyfyPSTLEVELMO8969-33-10 08:52:0024.5[facility] EbznpvyILMZRVWCTS2645-60-92 08:52:0010.0[facility] KxzlkpiSJCQYXWZJL0142-18-30 08:52:004.5[facility] HZHTILVAXJ0898-74-95 08:52:001.9[facility] KvsvcylMLHFYXYUCM9525-19-01 08:52:000.8 [facility] MrsonbmYBCEEYHKDF3406-25-36 08:52:000.6[facility]annHEMATOLOGY 2014-04-12 08:52:008.0[facility] IfrlfauTJEMMWTBZX3442-49-62 08:52:000.6[facility] UtrivyjNAMOGU4058-35-24 08:52:0011[facility] YcanjmkUNKEXC4145-97-47 08:52:0091 [facility] SvanivxUHYDJC1903-11-38 08:52:0055[facility] NdhjlfiYBNZWG5430-17-50 08:52:74367Adeekwjk CczendiFFGOBB5657-68-64 08:52:0050[facility] HermannLIPIDS 2014-04-12 08:52:003.04[facility] HermannSPECIAL DDERHCJAN5535-03-36 08:52:005.3 [facility]annCARDIAC TPUHCKG2556-79-79 20:40:00<0.02[facility] HermannCARDIAC TPOEQMP8827-52-63 20:40:000.6[facility] HermannCARDIAC KHQQNKH5691-11-80 20:40:00 75[facility] HermannCARDIAC VYLMLSZ0038-92-99 20:40:000.8[facility] HermannCHEM TWLPT0124-72-23 20:40:91128Jogmksmj HermannCHEM AWODE3397-84-60 20:40:001.0 [facility]annCHEM ITYWE8570-22-22 20:40:003.6[facility] HermannCHEM PANEL 2014-04-11 20:40:0016[facility] HermannCHEM HIYEY6419-06-06 20:40:007.1[facility] HermannCHEM ULCIW4033-84-72 20:40:003.5[facility] HermannCHEM GYOJN7825-20-16 20:40:0030[facility] HermannCHEM TSYGC8798-14-76 20:40:0011.2[facility] HermannCHEM VEDWZ5413-70-00 20:40:000.5[facility] HermannCHEM FNRQQ5007-65-15 20:40:0018 [facility]annCHEM HVHNR5311-42-59 20:40:0073[facility] HermannCHEM PANEL 2014-04-11 20:40:000.8[facility] HermannCHEM HCRXF1394-31-59 20:40:0089[facility] HermannCHEM URDPX1585-46-80 20:40:0013[facility] HermannCHEM QPVWI2822-47-89 20:40:009.0[facility] HermannCHEM IUBSP4117-67-33 20:40:14246Ztogynrs HermannCHEM RLIEI2772-33-58 20:40:0027[facility] HermannCHEM JFFQI6522-32-93 20:40:003.2 [facility]annCHEM WNUUV9653-02-97 20:40:34486Nxpwhvto HermannHEMATOLOGY 2014-04-11 20:40:00* Test Item Value Reference Range Interpretation Comments PTT (test code = PTT) 29.5 s 22.9-35.8 [facility] XaiibymUFPNTBETYL1261-22-64 20:40:00* Test Item Value Reference Range Interpretation Comments PT (test code = PT) 12.8 s 12.0-14.7 [facility] QnnjmqsOIZMCRRBCT4622-83-17 20:40:000.97[facility]annHEMATOLOGY 2014-04-11 20:40:0034.0[facility] JwfcsgsRSGVUWGEZC8649-79-28 20:40:0012.9[facility] WrfcnuiLEGZLAHPVC5717-02-70 20:40:09224Blmdfgah RdwtaxlEJLCOQVMEG8901-29-43 20:40:009.8[facility] NuqivemPLHWPDBUKQ3993-29-25 20:40:0041.7[facility] SEGMNHNBXL1850-31-68 20:40:0088.4[facility] UjvkypxAJXAQZAXWS1812-71-08 20:40:00* Test Item Value Reference Range Interpretation Comments MCH (test code = MCH) 30.1 pg 27.0-31.0 [facility] BlpkvbfWECQFONXAN8298-42-93 20:40:009.2[facility] HermannHEMATOLOGY 2014-04-11 20:40:004.71[facility] SvpbzkfORNHHUOXFL8412-68-71 20:40:0014.2[facility] KbtqzwhFRNADLQZZE0636-61-62 20:40:002.0[facility] BsloehiPJBJUBCSVF4597-69-58 20:40:005.7[facility] WkrkhfjNXKQDPANLF7005-30-11 20:40:000.8[facility] BLNEYSISVM3612-90-68 20:40:0062.0[facility] WbdnjmhXKKZFNXTKG8351-62-71 20:40:00 7.3[facility] HitonafUDJSHFOANL9414-24-61 20:40:000.8[facility] HermannHEMATOLOGY 2014-04-11 20:40:008.4[facility] ZuoijmyGLZSAYWVEF1967-98-83 20:40:0021.5[facility] PdnykswEIAJSUUUED6335-18-17 20:40:000.7[facility] IvdsxleDSRUCYUXHB9302-00-48 20:40:000.1[facility] HermannMRI BRAIN WO [place] [address] Patient Name: MIKE ALEJO MR #: [id number] : 1960 Age/Sex: 56/M Req #: [id number] Adm Physician: DAVIE FARFAN MD Ordered by: TRENT FOSTER MD Report #: [id number] Location: [facility] Room/Bed: [place] [address] Procedure: [id number] MRI/MRI BRAIN WO Exam Date: 10/13/17 Exam Time: 1200 REPORT STATUS: Signed Exam: History: Weakness, left-sided facial droop Comparison studies: Head CTs of 10/12/2017 and 06/30/2017 Technique: S agittal T2; axial DWI, FLAIR, MPGR, T1, Coronal T2 FLAIR. Intravenous contrast : None Findings: Limitations: There is mild distortion due to suscepti bility artifact on the more inferior cuts of the axial DWI sequence.. Sca lp: Normal in signal. No masses. Bone marrow: Normal in signal intensity. Brain sulci: Appropriate for age. Ventricles: Normal in size. No hydrocephalu s. Extra axial spaces: Incidental mildly prominent extra-axial space of CSF density along the right postcentral sulcus may represent incidental arachnoid cyst which does not result in significant mass effect or variant prominent sul cus. No other mass. No hemorrhage. No hemorrhage. Parenchyma: A few scatt ered T2 FLAIR hyperintense foci in the supratentorial white matter are nonspec ific but most compatible with chronic small vessel ischemic changes. No mass o r hemorrhage. No gross abnormal restricted diffusion is seen on the DWI sequen ce which is somewhat limited by susceptibility artifact. Suprasellar region : No abnormalities. Craniocervical junction: Patent foramen magnum. No Chiari Chiari reformation. Vessels: Normal flow-voids in the arteries and sinuses. IMPRESSION: 1. No acute intracranial abnormalities. 2. Mild suprate ntorial chronic microvascular ischemic changes. Signed by: Dr. Huey mcdaniel M.D. on 10/13/2017 4:43 PM Dictated By: HUEY CRUZ MD [facility] Signed By: HUEY CRUZ MD on 10/13/171642 Transcribed By: CATALINA on 0 10/13/171642 COPY TO: TRENT FOSTER MD CT BRAIN WO [place] [address] Patient Name: MIKE ALEJO #: [id number] : Age/Sex: 56/M Req #: [id number] Adm Physician: Ordered by: TRENT FOSTER MD Report #: [id number] Location: Room/B ed: Procedure: [id number] CT/CT BRAIN WO Exam Date: 0 10/12/17 Exam Time: 1608 REPORT STATUS: Signed Examination: CT BRAIN WITHOUT CONTRAST History:Left-sided weakness. Evalu ate for stroke. Comparison studies:None Technique: Axial images were ob tained from the skull base to the vertex. Coronal and sagittal images reconstr ucted from the axial data. Intravenous contrast: None Findings: Scal p: No abnormalities. Bones: No fractures, blastic or lytic lesions. Brain sulci: Appropriate for age. Ventricles: Normal in size and configuration. No hydrocephalus. Extra-axial space: No abnormalities. Parenchyma: N o masses, hemorrhage, or acute or chronic cortical based vascular insults. Sellar/suprasellar region: No abnormalities. Craniocervical junction: Patent f oramen magnum. No Chiari one malformation. Incidental findings: None. Impression: No intracranial abnormalities. Signed by: Dr. Sahil Dupree M.D. on 10/12/2017 4:59 PM Dictated By: SAHIL KOROMA MD 58 Tra nscribed By: CATALINA on 10/12/171658 COPY TO: TRENT FOSTER MD MODIFIED BA. [place] [address] Patient Name: MIKE ALEJO MR #: [id number] : 1960 Age/Sex: 56/M Req #: [id number] Adm Physician: DAVIE FARFAN MD Ordered by: DAVIE FARFAN MD Report #: [id number] Location: [facility] Room/Bed: [place] [address] Procedure: [id number] DX/M ODIFIED BA. SWALLOW Exam Date: 07/05/17 Exam Time: 0 950 REPORT STATUS: Signed PROCEDURE: X-RAY MODIFIED BARIUM SWALLOW COMPARISON: None. INDICATIONS: Syncope. DISCUSSION: Fluoro scopic examination was performed in conjunction with speech pathology, during swallowing of a variety of thin and thick liquid consistencies. CONCLUSION: No penetration or aspiration. Please see the report from spe ech pathology for complete details. Dictated by: Lin Mondragon M.D. on 07/05/2017 at 12:21 Electronically approved by: Lin Mondragon M.D. on 07/05/2017 at 12:21 Dictated By: LIN MONDRAGON MD Electronica lly Signed By: LIN MONDRAGON MD on 07/05/17 1221 Transcribed By: NANCY on 7 1221 COPY TO: DAVIE FARFAN MD HUMERUS RIGHT 2+VIEWS [place] [address] Patient Name: MIKE ALEJO MR #: [id number] : Age/Sex: 56/M Req #: [id number] Adm Physician: DAVIE ADAMS MD Ordered by: DAVIE FARFAN MD Report #: [id number] Location : [facility] Room/Bed: [place] [address] Procedure: [id number] DX/H UMERUS RIGHT 2+VIEWS Exam Date: Exam Time: R EPORT STATUS: Signed PROCEDURE: X-RAY RIGHT HUMERUS, TWO OR MORE VIEWS COMPARISON: None. INDICATIONS: RECENT FALL, RIGHT HUMERUS PAIN FINDINGS: There are no fractures, dislocations, lytic or blastic lesions. The bones are well-mineralized. The soft-tissues are unremarkable. C ONCLUSION: Normal right humerus radiograph. Dictated by: Gisela Arenas on 07/04/2017 at 17:25 Electronically approved by: Elieser Freedman M.D. on at 17:25 Dictated By: ELISEER FREEDMAN MD 24 Transcribed By: NANCY on 07/04/171724 C OPY TO: DAVIE FARFAN MD CHEST SINGLE (PORTABLE) [place] [address] Patient Name: MIKE ALEJO MR #: [id number] : 1960 Age/Sex: 56/M Req #: [id number] Adm Physician: Ordered by: DC MALIK MD Report #: [id number] Location: ER Room/Bed: Procedure: [id number] DX/CHEST SINGLE (PORTABLE ) Exam Date: 06/30/17 Exam Time: 2016 REPORT S TATUS: Signed Examination: Single AP view of the chest. COMPARISON: None . INDICATION: Status post fall IMPRESSION: 1. Lines and Tub es: None 2. Lungs are hypoinflated but grossly clear. No consolidation or eff usion. 3. Cardiomediastinal silhouette is normal. Pulmonary vasculature is normal. 4. No acute bony abnormalities. Signed by: Dr. Bubba Madera M.D. on 06/30/2017 8:44 PM Dictated By: BUBBA MADERA MD Electronical ly Signed By: BUBBA MADERA MD on 06/30/172043 Transcribed By: CATALINA on 2043 COPY TO: DC MALIK MD CT BRAIN WO [place] [address] Patient Name: MIKE ALEJO MR #: [id number] : Age/Sex: 56/M Req #: [id number] Adm Physician: Ordered by: DC MALIK MD Report #: [id number] Location: [facility]/Bed: Procedure: [id number] CT/CT BRAIN WO Exam Date : 06/30/17 Exam Time: 2016 REPORT STATUS: Leigh Ann d Examination: CT BRAIN WITHOUT CONTRAST History:Syncope. Comparison studies:None Technique: Axial images were obtained from the skull base to the vertex. Coronal and sagittal images reconstructed from the axial data. Intravenous contrast: None Findings: Scalp: No abnormalities. Bones: No fractures, blastic or lytic lesions. Brain sulci: Appropriate for age. Ventricles: Normal in size and configuration. No hydrocephalus. Extra-axi al space: No abnormalities. Parenchyma: No abnormal densities. No m asses, hemorrhage, acute or chronic vascular insults. Sellar/suprasellar re gion: Partially CSF filled. Craniocervical junction: Patent foramen magnum. No Chiari one malformation. Incidental findings: None. Impression: No intracranial abnormalities. Signed by: Dr. Sahil Dupree M.D. on 06/30/2017 8:54 PM Dictated By: SAHIL KOROMA MD Electronica lly Signed By: SAHIL KOROMA MD on 06/30/172053 Transcribed By: LEENA GUAMAN on 06/30/172053 COPY TO: DC MALIK MD
--- OUTSIDE RECORDS SUMMARY | 2020-02-24 09:17 | XMS REPORT | Summary of Care ---
Author Author [facility] Organization [facility] [place] [facility] Address Unknown Phone Unavailable Encounter HQ Saurabh_evonne(FIN) [phone] Date(s): 08/02/19 - 08/02/19 [facility] [place] [address] [place] [id number] [phone] Discharge Disposition: Home or Self Care Attending Physician: Bubba Allan MD Referring Physician: Bubba Allan MD Vital Signs No data available for this section Problem List Condition Effective Dates Status Health Status Informan t HTN Resolved (hypertension)(Confi rmed) Parkinsons Resolved disease(Confirmed) Allergies, Adverse Reactions, Alerts Substance Reaction Severity Status Bactrim Active [place] Active Medications No data available for this [...]
--- OUTSIDE RECORDS SUMMARY | 2020-02-24 09:17 | XMS REPORT | Continuity of Care Document ---
Author Author [employer] MIKE Santiago Organization [employer] Address Unknown Phone Unavailable Care Team Providers Care [place] Name Role Phone [employer] Information [employer] Unavailable Un available Problems Problem Status Onset Date Classification Date Reported Comments Source M25.511 - PAIN IN RIGHT SHOULDER Active 12/05/2016 JEANNETTE [place] Discharge Diagnosis: Muscle tear 05/02/2014 05/05/2014 [facility] LEG PAIN Active 05/01/2014 [facility] STROKE LIKE SYMPTOMS Active 04/07/2014 [facility] CVA Active 0 04/07/2014 [facility] 719.4 - PAIN IN JOINT [facility] [place] [facility] - [facility]CHRON K Active 01/12/2012 [facility] Hypertensive disorder, systemic arterial (disorder) Resolved Problem 08/11/2019 [facility] [place] Parkinson's disease (disorder) [facility] Medications Medication Details Route Status Patient Instructions Ordering Provider Order Date Source Motrin 600 mg, Route: PO, Drug form: TAB, ONCE, Dosing Weight 93.182, kg, Priority: STAT, Start date: 05/02/14 0:28:00, Stop date: 05/02/14 0:28:00 Inactive 05/02/2014 [facility] Hydrocodone Bitartrate 7.5 MG / Ibuprofe n 200 MG Oral Tablet [Vicoprofen] 1 tab, Route: PO, Dosing Weight 93.182, kg, ONCE, Start date: 05/02/14 0:18:00, Stop date: 05/02/14 0:18:00 Inactive 05/02/2014 [facility] aspirin 325 mg tablet 325 mg = 1 tab, PO, Daily, # 100 tab, 3 Refill(s) Active 04/13/2014 [facility] Carbidopa 25 MG / Levodopa 100 MG Oral T ablet [Sinemet 25-100] 1 tab, NG, TID, # 30 tab, 3 Refill(s) Active 04/13/2014 [facility] Carbidopa 25 MG / Levodopa 100 MG Oral T ablet [Sinemet 25-100] Notes: "Do Not Crush" Take with milk or food. (Same As: Sinemet CR) No Longer Active 04/12/2014 [facility] pantoprazole Notes: For IV pus h reconstitute with 10 ml 0.9% sodium chloride and push over 2 minutes. (Same as: Protonix) No Longer Active 04/12/2014 [facility] Aspirin / Calcium Carbonate No marilin: Take with food. No Longer Active 04/12/2014 [facility] Simvastatin Notes: (Same as: Z ocor) No Longer Active 04/12/2014 [facility] Saline Flush 0.9% Notes: (Same as: BD Posiflush) No Longer Active 04/12/2014 [facility] Saline Flush 0.9% Notes: (Same as: BD Posiflush) No Longer Active 04/12/2014 [facility] Enoxaparin Notes: (Same as: Lo venox) No Longer Active 04/12/2014 [facility] normal saline 0.9% IV 1,000 mL 1,000 mL, Rate: 100 ml/hr, Infuse over: 10 hr, Route: IV, Dosing Weight 93.182 kg, Total Volume: 1,000, Start date: 04/11/14 19:44:00, Duration: 30 day, Stop date: 05/11/14 19:43:00 No Longer Active 04/12/2014 [facility] Azilect 0.5 mg, PO, Daily, 0 R efill(s) Active 04/11/2014 [facility] Hydrochlorothiazide 12.5 mg, P O, Daily, 0 Refill(s) Active 04/11/2014 [facility] valsartan 320 MG Oral Tablet [Diovan] 320 mg = 1 tab, PO, Daily, # 30 tab, 0 Refill(s) Active 04/11/2014 [facility] rasagiline 1 MG Oral Tablet [Azilect] 1 mg = 1 tab, PO, Daily, # 30 tab, 0 Refill(s) Active 04/11/2014 [facility] Potassium Chloride Notes: (Anthony e as: KCL) Infuse no faster than 10 mEq/hr if given peripherally. Inactive 04/11/2014 [facility] Aspirin / Calcium Carbonate No marilin: Take with food. Inactive 04/11/2014 [facility] Saline Flush 0.9% Notes: (Same as: BD Posiflush) No Longer Active 04/11/2014 [facility] Allergies, Adverse Reactions, Alerts Substance Category Reaction Severity Reaction type Status Date Reported Comments Source Bactrim Assertion Drug allergy Active [facility] [place] Assertion Drug allergy Active [facility] [place] Immunizations No Data Provided for This Section Results Order Name Results Value Reference Range Date Interpretation Comments Source CHEM PANEL Calcium Lvl 8.5 8.5 - 10.5 04/13/2014 [facility] CHEM PANEL Creatinine Lvl 0.9 0.5 - 1.4 04/13/2014 [facility] CHEM PANEL Chloride Lvl 107 95 - 109 04/13/2014 [facility] CHEM PANEL Potassium Lvl 3.6 3.5 - 5.1 04/13/2014 [facility] CHEM PANEL CO2 29 24 - 32 04/13/2014 [facility] CHEM PANEL Sodium Lvl 143 135 - 145 04/13/2014 [facility] CHEM PANEL BUN 16 7 - 22 04/13/2014 [facility] CHEM PANEL Glucose Lvl 96 70 - 99 04/13/2014 <sup>4</sup>Interpretive Data: Adult ref erence range values reflect the clinical guidelines
of the [place] [employer]. [facility] CHEM PANEL eGFR 98 04/13/2014 <sup>1</sup>Result Comment: [...] should be multiplied by the estimated BMI. [facility] CHEM PANEL AGAP 10.6 10.0 - 20.0 04/13/2014 [facility] HEMATOLOGY MPV 10.0 7.4 - 10.4 04/13/2014 [facility] HEMATOLOGY Platelet 186 133 - 450 04/13/2014 [facility] HEMATOLOGY Hgb 13.2 14.0 - 18.0 04/13/2014 [facility] HEMATOLOGY MCV 89.3 80.0 - 94.0 04/13/2014 [facility] HEMATOLOGY RBC 4.42 4.70 - 6.10 04/13/2014 [facility] WBC 9.0 3.7 - 10.4 04/13/2014 [facility] HEMATOLOGY Hct 39.5 42.0 - 54.0 04/13/2014 [facility] MCH 29.9 27.0 - 31.0 04/13/2014 [facility] MCHC 33.5 32.0 - 36.0 04/13/2014 [facility] RDW 13.2 11.5 - 14.5 04/13/2014 [facility] HEMATOLOGY Basophils # 0.1 0.0 - 0.2 04/13/2014 [facility] HEMATOLOGY Eosinophils # 0.8 0.0 - 0.5 04/13/2014 [facility] HEMATOLOGY Monocytes # 0.8 0.0 - 0.8 04/13/2014 [facility] Lymphocytes # 2.5 1.0 - 5.5 04/13/2014 [facility] HEMATOLOGY Segs 54.1 45.0 - 75.0 04/13/2014 [facility] HEMATOLOGY Eosinophils 9.2 0.0 - 4.0 04/13/2014 [facility] HEMATOLOGY Monocytes 8.8 2.0 - 12.0 04/13/2014 [facility] Segs-Bands # 4.9 1.5 - 8.1 04/13/2014 [facility] Lymphocytes 27.2 20.0 - 40.0 04/13/2014 [facility] Basophils 0.7 0.0 - 1.0 04/13/2014 [facility] ELECTROLYTES AGAP 10.2 10.0 - 20.0 04/12/2014 [facility] ELECTROLYTES B/C Ratio 18 6 - 25 04/12/2014 [facility] ELECTROLYTES Globulin 3.4 2.0 - 4.0 04/12/2014 [facility] ELECTROLYTES A/G Ratio 0.9 0.7 - 1.6 04/12/2014 [facility] ELECTROLYTES eGFR 103 04/12/2014 <sup>2</sup>Result Comment: The [...] should be multiplied by the estimated BMI. [facility] ELECTROLYTES Bili Total 0.5 0.2 - 1.3 04/12/2014 [facility] ELECTROLYTES Alk Phos 68 39 - 136 04/12/2014 [facility] ELECTROLYTES ALT 28 0 - 65 04/12/2014 [facility] ELECTROLYTES AST 16 0 - 37 04/12/2014 [facility] ELECTROLYTES Total Protein 6.6 6.4 - 8.4 04/12/2014 [facility] ELECTROLYTES Calcium Lvl 8.1 8.5 - 10.5 04/12/2014 [facility] ELECTROLYTES Albumin Lvl 3.2 3.5 - 5.0 04/12/2014 [facility] ELECTROLYTES CO2 28 24 - 32 04/12/2014 [facility] ELECTROLYTES Creatinine Lvl 0.8 0.5 - 1.4 04/12/2014 [facility] ELECTROLYTES Potassium Lvl 3.2 3.5 - 5.1 04/12/2014 [facility] ELECTROLYTES Chloride Lvl 106 95 - 109 04/12/2014 [facility] ELECTROLYTES BUN 14 7 - 22 04/12/2014 [facility] ELECTROLYTES Sodium Lvl 141 135 - 145 04/12/2014 [facility] ELECTROLYTES Glucose Lvl 93 70 - 99 04/12/2014 <sup>5</sup>Interpretive Data: Adult ref erence range values reflect the clinical guidelines
of the [place] [employer]. [facility] HEMATOLOGY MPV 10.0 7.4 - 10.4 04/12/2014 [facility] HEMATOLOGY WBC 7.9 3.7 - 10.4 04/12/2014 [facility] HEMATOLOGY Hct 41.3 42.0 - 54.0 04/12/2014 [facility] HEMATOLOGY RBC 4.63 4.70 - 6.10 04/12/2014 [facility] HEMATOLOGY Hgb 13.8 14.0 - 18.0 04/12/2014 [facility] HEMATOLOGY RDW 12.9 11.5 - 14.5 04/12/2014 [facility] HEMATOLOGY Platelet 204 133 - 450 04/12/2014 [facility] HEMATOLOGY MCH 29.8 27.0 - 31.0 04/12/2014 [facility] HEMATOLOGY MCHC 33.4 32.0 - 36.0 04/12/2014 [facility] HEMATOLOGY MCV 89.1 80.0 - 94.0 04/12/2014 [facility] HEMATOLOGY Segs 56.9 45.0 - 75.0 04/12/2014 [facility] HEMATOLOGY Lymphocytes 24.5 20.0 - 40.0 04/12/2014 [facility] HEMATOLOGY Monocytes 10.0 2.0 - 12.0 04/12/2014 [facility] HEMATOLOGY Segs-Bands # 4.5 1.5 - 8.1 04/12/2014 [facility] HEMATOLOGY Lymphocytes # 1.9 1.0 - 5.5 04/12/2014 [facility] HEMATOLOGY Monocytes # 0.8 0.0 - 0.8 04/12/2014 [facility] HEMATOLOGY Basophils 0.6 0.0 - 1.0 04/12/2014 [facility] HEMATOLOGY Eosinophils 8.0 0.0 - 4.0 04/12/2014 [facility] HEMATOLOGY Eosinophils # 0.6 0.0 - 0.5 04/12/2014 [facility] LIPIDS VLDL 11 04/12/2014 [facility] LIPIDS LDL (Calculated) 91 <=99 mg/dL 04/12/2014 [facility] LIPIDS Trig 55 <=149 mg/dL 04/12/2014 [facility] LIPIDS Chol 152 <=199 mg/dL 04/12/2014 [facility] LIPIDS HDL 50 >=61 mg/dL 04/12/2014 [facility] LIPIDS CHD Risk 3.04 4.00 - 7.30 04/12/2014 [facility] SPECIAL CHEMISTRY Hgb A1C 5.3 <=5.6 % 04/12/2014 [facility] CARDIAC ENZYMES Troponin-I <0.02 0.00 - 0.40 04/11/2014 [facility] CARDIAC ENZYMES CK MB 0.6 0.5 - 3.6 04/11/2014 [facility] CARDIAC ENZYMES Total CK 75 12 - 191 04/11/2014 [facility] CARDIAC ENZYMES CK MB Index 0.8 0.0 - 2.5 04/11/2014 [facility] CHEM PANEL eGFR 103 04/11/2014 <sup>3</sup>Result Comment: [...] should be multiplied by the estimated BMI. [facility] CHEM PANEL A/G Ratio 1.0 0.7 - 1.6 04/11/2014 [facility] CHEM PANEL Globulin 3.6 2.0 - 4.0 04/11/2014 [facility] CHEM PANEL B/C Ratio 16 6 - 25 04/11/2014 [facility] CHEM PANEL Total Protein 7.1 6.4 - 8.4 04/11/2014 [facility] CHEM PANEL Albumin Lvl 3.5 3.5 - 5.0 04/11/2014 [facility] CHEM PANEL ALT 30 0 - 65 04/11/2014 [facility] CHEM PANEL AGAP 11.2 10.0 - 20.0 04/11/2014 [facility] CHEM PANEL Bili Total 0.5 0.2 - 1.3 04/11/2014 [facility] CHEM PANEL AST 18 0 - 37 04/11/2014 [facility] CHEM PANEL Alk Phos 73 39 - 136 04/11/2014 [facility] CHEM PANEL Creatinine Lvl 0.8 0.5 - 1.4 04/11/2014 [facility] CHEM PANEL Glucose Lvl 89 70 - 99 04/11/2014 <sup>6</sup>Interpretive Data: Adult ref erence range values reflect the clinical guidelines
of the [place] [employer]. [facility] CHEM PANEL BUN 13 7 - 22 04/11/2014 [facility] CHEM PANEL Calcium Lvl 9.0 8.5 - 10.5 04/11/2014 [facility] CHEM PANEL Chloride Lvl 104 95 - 109 04/11/2014 [facility] CHEM PANEL CO2 27 24 - 32 04/11/2014 [facility] CHEM PANEL Potassium Lvl 3.2 3.5 - 5.1 04/11/2014 [facility] CHEM PANEL Sodium Lvl 139 135 - 145 04/11/2014 [facility] PTT 29.5 22.9 - 35.8 04/11/2014 <sup>8</sup>Interpretive Data: Heparin T herapeutic Range: 57 - 92 Seconds [facility] HEMATOLOGY PT 12.8 12.0 - 14.7 04/11/2014 [facility] INR 0.97 0.85 - 1.17 04/11/2014 <sup>7</sup>Interpretive Data: RECOMMEND ED RANGES FOR PROTIME INR:
2.0-3.0 for most medical and surgical thromboembolic states.
2.5-3.5 for artificial heart valves and recurrent embolism.

INR SHOULD BE USED ONLY FOR PATIENTS ON STABLE ANTICOAGULANT THERAPY. [facility] MCHC 34.0 32.0 - 36.0 04/11/2014 [facility] RDW 12.9 11.5 - 14.5 04/11/2014 [facility] Platelet 218 133 - 450 04/11/2014 [facility] MPV 9.8 7.4 - 10.4 04/11/2014 [facility] Hct 41.7 42.0 - 54.0 04/11/2014 [facility] MCV 88.4 80.0 - 94.0 04/11/2014 [facility] MCH 30.1 27.0 - 31.0 04/11/2014 [facility] WBC 9.2 3.7 - 10.4 04/11/2014 [facility] RBC 4.71 4.70 - 6.10 04/11/2014 [facility] Hgb 14.2 14.0 - 18.0 04/11/2014 [facility] Lymphocytes # 2.0 1.0 - 5.5 04/11/2014 [facility] Segs-Bands # 5.7 1.5 - 8.1 04/11/2014 [facility] Monocytes # 0.8 0.0 - 0.8 04/11/2014 [facility] Segs 62.0 45.0 - 75.0 04/11/2014 [facility] HEMATOLOGY Eosinophils 7.3 0.0 - 4.0 04/11/2014 [facility] HEMATOLOGY Basophils 0.8 0.0 - 1.0 04/11/2014 [facility] HEMATOLOGY Monocytes 8.4 2.0 - 12.0 04/11/2014 [facility] HEMATOLOGY Lymphocytes 21.5 20.0 - 40.0 04/11/2014 [facility] HEMATOLOGY Eosinophils # 0.7 0.0 - 0.5 04/11/2014 [facility] HEMATOLOGY Basophils # 0.1 0.0 - 0.2 04/11/2014 [facility] Pathology Reports No Data Provided for This Section Diagnostic Reports Report Value Date Source Brain wo contrast MRI PATIENT NAME: MIKE ALEJO : 1960; Age: 58 years y/o Male MR: [id number] STUDY: Brain wo contrast MRI 08/08/2019 14:15 [employer] ORDERING PHYSICIAN: Aixa Moore MD CLINICAL INDICATION: G20 Parkinson's disease - G20 Parkinson's disease; COMPARISON: 04/12/2014 brain magnetic resonance imaging TECHNIQUE: Multiplanar noncontrast MRI of the brain is performed. FINDINGS: BRAIN PARENCHYMA: There is no hemorrhage, mass lesion, extra axial collection, cerebral edema, or mass effect. Diffusion sequences are normal. Brain volume is age-appropriate with only mild volume loss most evident in the temporal lobes. The substantia nigra remains well defined.. There are mild signal abnormalities in the white matter.The cerebellar tonsils are above foramen magnum. The pituitary gland is age-appropriate. CEREBELLOPONTINE REGIONS AND SKULL BASE: The cerebellopontine angles appear unremarkable. No skull base abnormality is seen. VENTRICLES/SULCI/CISTERNS: The ventricles are normal in size and configuration. The basal cisterns are patent. VISUALIZED VESSELS: Major intracranial flow voids are preserved. ORBITS, VISUALIZED PARANASAL SINUSES AND MASTOIDS: Paranasal sinuses are clear. The mastoid air cells are clear. No orbital pathology is seen. IMPRESSION: 1. Mild temporal lobe dominant volume lo ss. Mild chronic microvascular ischemia. 2. Normal brain stem volume and signal 3. No acute intracranial findings 08/08/2019 [facility] [place] Chest 2 views DX 2-VIEW CHEST X-RAY. DATE: 08/02/2019 15:49 [employer] INDICATION: - Z00.00 Encounter for general adult medical examination without abnormal findings;I10 Essential (primary) hypertension TECHNIQUE: Frontal and lateral views of the chest were performed. COMPARISON:Chest x-ray 01/12/2012 and 04/11/2014 FINDINGS: The lungs are clear without focal mass or consolidation. There are no effusions. The cardiomediastinal silhouette is unchanged. The osseous structure show degenerative changes. The visualized abdomen is unremarkable. IMPRESSION: No acute cardiopulmonary disease. 08/02/2019 JEANNETTE [place] Shoulder series DX EXAM: Shoul nirmal series DX HISTORY: right shoulder pain COMPARISON: None 3 views of the right shoulder. No fracture is seen. Alignment is normal. There is no significant degenerative change which is radiographically apparent. IMPRESSION: No acute normality. 12/05/2016 [facility] [place] Lower Venous Doppler Unilat US EXAM: [...] 11 x 2.5 cm hypoechoic lesion or january ection in the soft tissues of the left calf of uncertain etiology, may reflect a hematoma or fluid. A nonemergent MRI with contrast can further evaluate. SL: 14 05/02/2014 [facility] w/wo contrast MRI MRI BR AIN with and without contrast CLINICAL INDICATION: Aphasia [...] intracranial abnormality. 2. No abnormal enhancement. SL: 12 04/12/2014 [facility] wo contrast MRA MRA OF T HE HEAD WITHOUT CONTRAST HISTORY: Aphasia or dysarthria COMPARISON: None. TECHNIQUE: Magnetic resonance angiography of the saxman of [place] using TOF imaging. 3-D maximum [...] or aneurysm involving the vessels of the sax[place] of [place]. SL: 04/12/2014 [facility] Carotid artery Doppler bilat US Exam: Carotid [...] in Ultrasound Consensus Panel Criteria. SL: 04/11/2014 [facility] Chest 1view Chest one view: Exam reason: [...] IMPRESSION: No acute cardiopulmonary process noted. SL:04/11/2014 [facility] Brain Stroke wo contrast CT CT head [...] MRI brain if indicated. SL: 12 04/11/2014 [facility] Consultation Notes No Data Provided for This Section Discharge Summaries No Data Provided for This Section History and Physicals No Data Provided for This Section Vital Signs Vital Sign Value Date Comments Source Systolic (mm Hg) 124 05/02/2014 [facility] Diastolic (mm Hg) 91 05/02/2014 [facility] Respitory Rate 18 05/02/2014 [facility] Heart Rate 56 05/02/2014 [facility] Temperature Oral (F) 97.6 F 05/02/2014 [facility] Respitory Rate 18 05/02/2014 [facility] Heart Rate 69 05/02/2014 [facility] Systolic (mm Hg) 122 05/02/2014 [facility] Diastolic (mm Hg) 85 05/02/2014 [facility] Temperature Oral (F) 98.1 F 05/02/2014 [facility] Systolic (mm Hg) 144 04/14/2014 [facility] Diastolic (mm Hg) 88 04/14/2014 [facility] Heart Rate 78 04/14/2014 [facility] Temperature Oral (F) 98.2 F 04/14/2014 [facility] Respitory Rate 16 04/14/2014 [facility] Temperature Oral (F) 98.7 F 04/13/2014 [facility] Respitory Rate 14 04/13/2014 [facility] Heart Rate 78 04/13/2014 [facility] Diastolic (mm Hg) 89 04/13/2014 [facility] Systolic (mm Hg) 149 04/13/2014 [facility] Temperature Oral (F) 98.3 F 04/13/2014 [facility] Heart Rate 75 04/13/2014 [facility] Systolic (mm Hg) 148 04/13/2014 [facility] Respitory Rate 14 04/13/2014 [facility] Diastolic (mm Hg) 99 04/13/2014 [facility] BMI Calculated 34.19 04/12/2014 [facility] Weight 93.182 04/12/2014 [facility] Height 165.1 cm 04/12/2014 [facility] Weight 93.182 04/11/2014 [facility] BMI Calculated 34.19 04/11/2014 [facility] Height 165.1 cm 04/11/2014 [facility] Encounters Location Location Details Encounter Type Encounter Number Reason For Visit Attending Provider ADM Date DC Date Status Source OD [id number] 404 - HTN HRT/CHRON K PANKAJ ROTHMANR 01/12/2012 Active [facility] [place] [id number] 719.4 - PAIN IN JOINT PANKAJ CHAVESLAR 02/15/2012 02/15/2012 Active [facility] [place] [facility] Inpatient [id number] Erwin Olivera 04/11/2014 04/14/2014 [facility] [id number] Ivan Ospina 05/02/2014 05/02/2014 [facility] [place] [facility] [id number] Pankaj Chaveslar 12/05/2016 12/06/2016 [facility] [place] [facility] [place] [facility] [id number] Pankaj Chaveslar 08/02/2019 08/03/2019 [facility] [place] [facility] [place] [facility] [id number] Aixa Palvadi 08/08/2019 08/09/2019 [facility] [place] Procedures No Data Provided for This Section [...] unclear if this is new. He has some pain in the shoulder. He also has [...] SpO2 FIO2 04/11 19:46 99.2 64 121/84 1 9 96 --- 04/11 19:13 ---- 80 132/80 1 9 98 --- 04/11 18:19 98.2 75 127/88 1 9 97 --- 04/11 17:00 ---- 75 130/87 2 1 97 --- 04/11 14:28 98.1 92 145/87 1 6 100 --- 24 Hr Tmax: 99.2F (37.33c) at 04/11 19:4 6 Vital Signs are the last 5 in [...] Recommendations: -Follow up MRI brain and carotid doppler s. -TTE -ASA 81mg daily -Check fasting lipids, HbA1c -PT/OT/Speech therapy -Telemetry -Maintain normotension (on HTN meds now) -Not a candidate for thrombolytic therap y as he is out of the time window and has low NIHSS -Not a candidate for anticoagulation as no documented arrythmia -DVT ppx - lovenox 40mg SQ daily Regarding parkinsons - can continue rasagiline for now and monitor response Will continue to follow. Thank you for this consult. 04/14/2014 [facility] Plan of Care No Data Provided for This Section Social History Social History Date Source Social History TypeResponse Alcohol Current, Frequency: 1-2 times per month. Smoking Status Never smoker; Exposure to Tobacco Smoke None; Cigarette Smoking Last 365 Days No; Reg Smoking Cessation Counseling No entered on: 04/11/14 04/12/2014 VIVEK [facility] Social History TypeResponse Alcohol Use: Current, Frequency: 1-2 times per month Smoking Status Never smoker, Exposure to Tobacco Smoke None, Cigarette Smoking Last 365 Days No, Reg Smoking Cessation Counseling No 04/12/2014 [facility] Family History No Data Provided for This Section Advance Directives No Data Provided for This Section Functional Status No Data Provided for This Section
[2020-02-24] MEDS ORDERED: SODIUM CHLORIDE 0.9% 1000ML 1,000 ML IV STA (09:20)
[2020-02-24] MEDS ORDERED: PIPER-TAZ 3.375 GM 50 ML IV ONE (09:30)
[2020-02-24] MEDS ORDERED: ASPIRIN 81 MG CHEW TAB PO ONE (09:30)
--- NOTE | 2020-02-24 09:35 | Emergency Department Note ---
History of Present Illnes History of Present Illness Chief Complaint: General Medicine Complaints History of Present Illness This is a 59 year old male .c/o guthrie weakness fatigue ran out of medications LIVES WITH HIS DAUGHTERS. PT RAN OUT OF UNK MEDICATION COSTING $300 SO THEY DIDNT FILL IT. ALSO, PT INCONTINENT OF URINE AND SLOW ANSWERING, LOW GRADE TEMPS AND +HTN WITH HX OF SAME. NO SOB. C/O HEADACHE. 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 Arrival Mode: [facility] EMS Treatment CAT TENDER: See EMS Report Onset (how long ago): day(s) (today) Radiation: non-radiation, back, neck, extremity, abdomen, periumbilical, flank, proximal, distal, other Duration (how long): day(s) (today) Timing of current episode: constant Progression: worsening Context: recent illness, recent surgery, recent immobilization, recent travel, trauma/injury, new medications, hx of DVT/PE, non-compliance w/ medications, other Relieving factors: none Exacerbating factors: none Treatments prior to arrival: none Past Medical/Family History Physician Review I have reviewed the patient's past medical and family history. Any updates have been documented here. Past Medical History Recent Fever: Yes Clinical Suspicion of Infectio: Yes New/Unexplained Change in Ment: Yes Past Medical History: Hypertension, CVA, CAD, Hyperlipedemia Other Medical History: PARKINSONS Other Surgery: RIGHT LEG SURGERY Social History Smoking Cessation: Never Smoker Alcohol Use: None Any Illegal Drug Use: No TB Exposure/Symptoms: No Physically hurt or threatened: No Family History Family history of heart diseas: No Other Last Tetanus: Unknown Any Pre-Existing Lines (PICC,: No Review of Systems Review of Systems Constitutional: weakness EENTM: no symptoms Cardiovascular: no symptoms Respiratory: no symptoms Gastrointestinal: no symptoms Genitourinary: no symptoms Musculoskeletal: no symptoms Neurological: headache, weakness Psychological: no symptoms Endocrine: no symptoms Hematological/Lymphatic: no symptoms Review of other systems All other systems reviewed and negative. Physical Exam Related Data Allergies: Coded Allergies: melphalan (Verified Allergy, Unknown, 07/03/17) powder injection. Uncoded Allergies: mainosyn (Allergy, Unknown, 07/03/17) verified by daughter Triage Vital Signs Vital Signs Date Time Temp Pulse Resp B/P (MAP) Pulse Ox O2 Delivery O2 Flow Rate FiO2 02/24/20 09:16 99.1 130 18 160/135 94 Vital signs reviewed: Yes Physical Exam CONSTITUTIONAL Constitutional: ill appearing HENT HENT: normocephalic, atraumatic, oropharynx clear/moist, nose normal HENT L/R: left ext ear normal, right ext ear normal EYES Eyes: PERRL, conjunctivae normal NECK Neck: ROM normal PULMONARY Pulmonary: effort normal, breath sounds normal CARDIOVASCULAR Cardiovascular: regular rhythm, heart sounds normal, capillary refill normal, tachycardia (130), other (denies sob cp ); LLE edema, RLE edema GASTROINTESTINAL Abdominal: soft, nontender, bowel sounds normal GENITOURINARY Genitourinary: exam deferred SKIN Skin: warm, dry MUSCULOSKELETAL Musculoskeletal: ROM normal NEUROLOGICAL Neurological: alert, oriented x 3, weakness, other (non focal generalized weakness ) PSYCHOLOGICAL Psychological: mood/affect normal, judgement normal Exam - additional comments hx parkinson's Results Laboratory Laboratory Laboratory Tests Test 02/24/20 10:00 02/24/20 09:52 Urine Color Yellow (YELLOW) Urine Clarity Sl cloudy (CLEAR) Urine pH 6 (5 - 7) Urine Specific [place] >=1.030 (1.010-1.025) Urine Protein Trace (NEGATIVE) Urine Glucose (UA) Negative (NEGATIVE) Urine Ketones Negative (NEGATIVE) Urine Blood Moderate (NEGATIVE) Urine Nitrite Positive (NEGATIVE) Urine Bilirubin Small (NEGATIVE) Urine Urobilinogen 0.2 mg/dL (0.2 - 1) Urine Leukocyte Esterase Trace (NEGATIVE) Urine RBC 0-5 /HPF (0-5) Urine WBC >50 /HPF (0-5) Urine Epithelial Cells Rare /LPF (NONE) Urine Bacteria Many /HPF (NONE) White Blood Count 12.30 x10e3/uL (4.8-10.8) Red Blood Count 5.50 x10e6/uL (4.3-5.7) Hemoglobin 16.2 g/dL (14.0-18.0) Hematocrit 49.6 % (38.2-49.6) Mean Corpuscular Volume 90.2 fL (81-99) Mean Corpuscular Hemoglobin 29.5 pg (28-32) Mean Corpuscular Hemoglobin Concent 32.7 g/dL (31-35) Red Cell Distribution Width 12.6 % (11.7-14.4) Platelet Count 253 x10e3/uL (140-360) Neutrophils (%) (Auto) 77.4 % (38.7-80.0) Lymphocytes (%) (Auto) 12.0 % (18.0-39.1) Monocytes (%) (Auto) 8.0 % (4.4-11.3) Eosinophils (%) (Auto) 1.9 % (0.0-6.0) Basophils (%) (Auto) 0.3 % (0.0-1.0) Neutrophils # (Auto) 9.5 (2.1-6.9) Lymphocytes # (Auto) 1.5 (1.0-3.2) Monocytes # (Auto) 1.0 (0.2-0.8) Eosinophils # (Auto) 0.2 (0.0-0.4) Basophils # (Auto) 0.0 (0.0-0.1) Absolute Immature Granulocyte (auto 0.05 x10e3/uL (0-0.1) Activated Partial Thromboplast Time 27.3 seconds (23.8-35.5) Sodium Level 141 mmol/L (136-145) Potassium Level 3.8 mmol/L (3.5-5.1) Chloride Level 108 mmol/L (98-107) Carbon Dioxide Level 21 mmol/L (22-29) Anion Gap 15.8 mmol/L (8-16) Blood Urea Nitrogen 23 mg/dL (7-26) Creatinine 0.80 mg/dL (0.72-1.25) Estimat Glomerular Filtration Rate > 60 ML/MIN (60-) BUN/Creatinine Ratio 29 (6-25) Glucose Level 140 mg/dL (74-118) Lactic Acid Level 1.5 mmol/L (0.5-2.0) Calcium Level 9.5 mg/dL (8.4-10.2) Total Bilirubin 0.7 mg/dL (0.2-1.2) Aspartate Amino Transf (AST/SGOT) 21 IU/L (5-34) Alanine Aminotransferase (ALT/SGPT) 21 IU/L (0-55) Alkaline Phosphatase 93 IU/L (40-150) Creatine Kinase 35 IU/L (30-200) Creatine Kinase MB 0.60 ng/mL (0-5.0) Troponin I 0.011 ng/mL (0-0.300) B-Type Natriuretic Peptide < 10.0 pg/mL (0-100) Total Protein 7.8 g/dL (6.5-8.1) Albumin 3.6 g/dL (3.5-5.0) Globulin 4.2 g/dL (2.3-3.5) Albumin/Globulin Ratio 0.9 (0.8-2.0) Thyroid Stimulating Hormone (TSH) 0.675 uIU/mL (0.350-4.940) Influenza Virus Types A,B Antigen Negative (NEGATIVE) Group A Streptococcus Screen Negative (NEGATIVE) Lab results reviewed: Yes Imaging Impressions ct brain IMPRESSION: No acute abnormalities . Stable from previous exam. Signed by: DR Hubert Rahman M.D. on 02/24/2020 10:45 AM Dictated By: HUBERT ARANDA MD [id number] Transcribed By: CATALINA on 02/24/20 104 IMPRESSION: 3 mm nonobstructing stone identified within the inferior pole the left kidney. No evidence for hydronephrosis or obstructive uropathy. No other acute abdominopelvic process identified on this noncontrast enhanced examination of the abdomen and pelvis. Signed by: Dr. Gunnar Britt MD on 02/24/2020 12:26 PM Dictated By: GUNNAR BRITT MD 1226 Transcribed By: CATALINA on 02/24/20 1226 cxr- neg Procedures 12 Lead ECG Interpretation [employer]: Interpreted by ED physician Date: Feb 24, 2020 Time: 10:18 Prior REGULATORY AFFAIRS MANAGER tracings: reviewed Rhythm: sinus tachycardia Ectopy: atrial premature contractions Rate: tachycardia BPM: 125 QRS axis: left Critical Care Time Subsequent provider I assumed direction of critical care for this patient from another provider of my specialty. Assessment & Plan Reassessment Reassessment time: 09:31 Reassessment 59 y m presented to ed via ems from home c/o generalized weakness guthrie ran out of meds hx parkinsons denies cp sob n/v fever chills - lab ekg cxr ct brain blood cultures lactic strep flu covid ordered pt medicated w/ ns bolus suspect sepsis hr 130 o2 sat 94% rm air blood cultures / lactic ordered pt medicated w/ zoniraj wbc 12.3 lactic 1.5 no end organ dysfunction noted Assessment & Plan Final Impression: (1) Weakness (2) Urinary tract infection (3) Tachycardia (4) Sepsis Assessment & Plan Discussed lab ct results plan of care and need for admit spoke w/ Dr Lopez w/ [facility] will accept transfer Depart Disposition: TRANS TO OTHER [facility] Last Vital Signs Date Time Temp Pulse Resp B/P (MAP) Pulse Ox O2 Delivery O2 Flow Rate FiO2 02/24/20 09:16 99.1 130 18 160/135 94 Home Meds Active Scripts Acetaminophen With Codeine (TYLENOL WITH CODEINE #3 TABLET) 1 Each Tablet, 300 MG PO Q8H PRN for PAIN for 30 Days, TAB Prov:DUNCAN KHAN NP 10/15/17 Lisinopril (LISINOPRIL) 10 Mg Tablet, 30 MG PO DAILY for 30 Days Prov:DUNCAN KHAN NP 10/15/17 Carvedilol (COREG) 12.5 Mg Tab, 12.5 MG PO BID for 30 Days, TAB Prov:DUNCAN KHAN NP 10/15/17 Carbidopa/Levodopa (CARBIDOPA-LEVODOPA 25-100 TAB) 1 Each Tablet, 3 EA PO TID for 30 Days Prov:DUNCAN KHAN NP 10/15/17 Ropinirole Hcl (REQUIP) 1 Mg Tablet, 1 MG PO Q6H for 14 Days Prov:JACQUELINE HORN NP 07/09/17 Acetaminophen (ACETAMINOPHEN) 325 Mg Tablet, 650 MG PO Q4H PRN for PAIN AND TEMPERATURE for 14 Days Prov:JACQUELINE HORN NP 07/09/17 Reported Medications Rasagiline Mesylate (AZILECT) 1 Mg Tablet, 1 MG PO DAILY 10/12/17 Valsartan (DIOVAN) 320 Mg Tablet, 320 MG PO DAILY 07/29/16 Medications in the ED Sodium Chloride 1,000 ml @ 0 mls/hr Q0M STAT IV ; Start 02/24/20 at 09:20; Stop 02/24/20 at 09:23; Status DC Aspirin 81 mg PRN ONCE PO ; Start 02/24/20 at 09:30; Stop 02/24/20 at 09:31; Status UNV Piperacillin Sod/ Tazobactam Sod 50 ml @ 50 mls/hr NOW ONCE IV ; Start 02/24/20 at 09:30; Stop 02/24/20 at 10:29; Status UNV NAVEED WARREN Feb 24, 2020 09:35
[2020-02-24 10:34] LABS: BASOPHILS % 0.3 % (0.0-1.0); EOSINOPHILS # (AUTO) 0.2 (0.0-0.4); EOSINOPHILS % 1.9 % (0.0-6.0); HEMATOCRIT 49.6 % (38.2-49.6); HEMOGLOBIN 16.2 g/dL (14.0-18.0); LYMPHOCYTES # (AUTO) 1.5 (1.0-3.2); MEAN CORPUSCULAR HEMOGLOBIN 29.5 pg (28-32); MEAN CORPUSCULAR HGB CONC 32.7 g/dL (31-35); MEAN CORPUSCULAR VOLUME 90.2 fL (81-99); NEUTROPHILS # (AUTO) 9.5 (2.1-6.9); NEUTROPHILS % 77.4 % (38.7-80.0); PLATELET COUNT 253 x10e3/uL (140-360); RED CELL DISTRIBUTION WIDTH 12.6 % (11.7-14.4)
[2020-02-24 10:42] LABS: BILIRUBIN,URINE SMALL (NEGATIVE); CLARITY,URINE SL CLOUDY (CLEAR); COLOR,URINE YELLOW (YELLOW); KETONES,URINE NEGATIVE (NEGATIVE); LEUKOCYTE ESTERASE ,URINE TRACE (NEGATIVE); NITRITE,URINE POSITIVE (NEGATIVE); PROTEIN,URINE DIPSTICK TRACE (NEGATIVE); URINE UROBILINOGEN 0.2 mg/dL (0.2 - 1)
[2020-02-24 10:46] LABS: STREPTOCOCCUS GRP A ANTIGEN NEGATIVE (NEGATIVE)
--- NOTE | 2020-02-24 10:48 | Diagnostic Imaging Report ---
History: Headache, Parkinson's Comparison studies: CT head 10/12/2017, MRI brain 10/13/2017 Technique: Axial images were obtained from the skull base to the vertex. Coronal and sagittal reconstructions obtained from the axial data. Dose modulation, iterative reconstruction, and/or weight based adjustment of the mA/kV was utilized to reduce the radiation dose to as low as reasonably achievable. Findings: Scalp/skull: No abnormalities. No fractures, blastic or lytic lesions. Extra-axial spaces: No masses. No fluid collections. Brain sulci: Mildly prominent. Ventricles: Normal in size and configuration. No hydrocephalus. Parenchyma: No abnormal densities. No masses, hemorrhage, acute or chronic cortical vascular insults. Sellar/suprasellar region: No abnormalities Craniocervical junction: Patent foramen magnum. No Chiari one malformation. IMPRESSION: No acute abnormalities . Stable from previous exam. Signed by: DR Hubert Rahman M.D. on 02/24/2020 10:45 AM
--- NOTE | 2020-02-24 10:50 | Diagnostic Imaging Report ---
EXAM: CHEST SINGLE (PORTABLE) DATE: 02/24/2020 10:18 AM INDICATION: Headache COMPARISON: 11/29/2018 FINDINGS: The trachea is midline. The lungs are symmetrically expanded without evidence for large focal consolidation, pneumothorax, or significant pleural effusion. The cardiomediastinal silhouette and pulmonary vasculature are within normal limits. No acute osseous abnormality is identified. The surrounding soft tissues are unremarkable. IMPRESSION: No acute cardiopulmonary process identified. Signed by: Dr. Gunnar Britt MD on 02/24/2020 10:47 AM
[2020-02-24 10:54] LABS: ALANINE AMINOTRANSFERASE 21 IU/L (0-55); ALBUMIN 3.6 g/dL (3.5-5.0); ALBUMIN/GLOBULIN RATIO 0.9 (0.8-2.0); ALKALINE PHOSPHATASE 93 IU/L (40-150); ANION GAP 15.8 mmol/L (8-16); BLOOD UREA NITROGEN 23 mg/dL (7-26); BUN/CREATININE RATIO 29 (6-25); CALCIUM 9.5 mg/dL (8.4-10.2); CARBON DIOXIDE 21 mmol/L (22-29); CHLORIDE 108 mmol/L (98-107); CREATINE KINASE 35 IU/L (30-200); EST GLOMERULAR FILTRATION RATE > 60 ML/MIN (60-); GLUCOSE 140 mg/dL (74-118); POTASSIUM 3.8 mmol/L (3.5-5.1); SODIUM 141 mmol/L (136-145)
[2020-02-24 10:57] LABS: INFLUENZAE A&B ANTIGEN (RAPID) NEGATIVE (NEGATIVE)
[2020-02-24 11:02] LABS: BACTERIA,URINE MANY /HPF; EPITHELIAL CELLS,URINE RARE /LPF; RBC,URINE 0-5 /HPF (0-5); WBC,URINE (MAN) >50 /HPF (0-5)
[2020-02-24 11:04] LABS: B-TYPE NATRIURETIC PEPTIDE2 < 10.0 pg/mL (0-100)
[2020-02-24 11:14] LABS: THYROID STIMULATING HORMONE 0.675 uIU/mL (0.350-4.940)
[2020-02-24 11:16] LABS: PARTIAL THROMBOPLASTIN TIME 27.3 seconds (23.8-35.5)
--- NOTE | 2020-02-24 11:42 | NUR ---
PATIENT INCONTINENT OF URINE. CLEANED HIM AND CHANGED DIAPER AND PAD. SPOKE WITH DAUGHTER JOHNNY, SHE WANTS TO BE UPDATED AND TO DROP HIS PHONE OFF [phone]
[2020-02-24 12:01] LABS: INR 0.92
--- NOTE | 2020-02-24 12:30 | Diagnostic Imaging Report ---
CT of the abdomen and pelvis, without contrast. History: Urinary incontinence. Comparison: None available. Technique: Multidetector CT scanning of the abdomen and pelvis was performed from the level of the lung bases to the inferior pubic rami without the use of contrast material. Coronal and sagittal multiplanar reformations were obtained. RADIATION DOSE: Total DLP: 834.33 mGy*cm Dose modulation, iterative reconstruction, and/or weight based adjustment of the mA/kV was utilized to reduce the radiation dose to as low as reasonably achievable. FINDINGS: The visualized lungs are grossly clear. The imaged portion of the heart demonstrates no significant abnormalities. The liver is normal in size and attenuation on this noncontrast enhanced examination. The gallbladder is unremarkable. There is no significant biliary ductal dilatation. The stomach, spleen, pancreas, and bilateral adrenal glands are unremarkable. Please note that streak artifact from the patient's arms at the sides limits evaluation. Allowing for limitations, the kidneys are normal in size and location. There is a 3 mm nonobstructing stone identified within the inferior pole of the left kidney. There is no evidence for hydronephrosis. Probable extra renal pelvis noted on the left. No ureteral stone or dilatation is identified. The partially distended urinary bladder demonstrates no significant abnormalities. The prostate contains mild dystrophic calcifications but is otherwise unremarkable. The abdominal aorta and IVC are normal in caliber. Please note evaluation the bowel is limited without the use of enteric contrast material. The visualized loops of small large bowel demonstrate no evidence of obstruction or inflammation. A moderate amount of formed stool is noted within the rectum, recommend correlation for constipation. There is no ascites or intraperitoneal free air. No abnormally enlarged lymph nodes are identified within the abdomen or pelvis. There is a small fat-containing left inguinal hernia present. The osseous structures demonstrate no evidence for acute fracture or destructive process. The extraperitoneal soft tissues are unremarkable. IMPRESSION: 3 mm nonobstructing stone identified within the inferior pole the left kidney. No evidence for hydronephrosis or obstructive uropathy. No other acute abdominopelvic process identified on this noncontrast enhanced examination of the abdomen and pelvis. Signed by: Dr. Gunnar Britt MD on 02/24/2020 12:26 PM
--- NOTE | 2020-02-24 12:30 | NUR ---
PATIENT BEING TRANFERED. RECEIVED INFO FROM [facility]/ APPROVAL TIME OF 1227. REQUESTING FACE SHEET TO [phone]. ACCEPTING PHYSICIAN DR. DUNHAM. PATIENT GOING TO ROOM 711 CALL REPORT TO [phone]
--- NOTE | 2020-02-24 12:43 | NUR ---
SPOKE WITH PATIENTS DAUGHTER JOHNNY AND GAVE HER ROOM NUMBER AND HOSPITAL INFO FOR [facility]
--- NOTE | 2020-02-24 13:04 | NUR ---
REPORT TO [facility]- [phone]. PATIEN TO ROOM 711
--- NOTE | 2020-02-24 13:15 | NUR ---
[facility] contacted at this time ETA 45 min.
--- NOTE | 2020-02-24 13:46 | NUR ---
CALLED FOR DISC
== END 2020-02-24 14:03 | disposition other institution (70) ==
LOC: ER 09:13
DX: R53.1 Weakness (principal); A41.9 Sepsis, unspecified organism; R51 Headache; N39.0 Urinary tract infection, site not specified; R00.0 Tachycardia, unspecified; G20 Parkinson's disease; I10 Essential (primary) hypertension; E78.5 Hyperlipidemia, unspecified; I25.10 Atherosclerotic heart disease of native coronary artery without angina pectoris; Z11.59 Encounter for screening for other viral diseases; Z86.73 Personal history of transient ischemic attack (TIA), and cerebral infarction without residual deficits
CPT/HCPCS: 36415; 70450; 71045; 74176; 80053; 81001; 82550; 82553; 83518; 83605; 83880; 84443; 84484; 85025; 85610; 85730; 87040; 87070; 87071; 87086; 87186; 87205; 87400; 87635; 93005; 99285; J2543; J7030

== ENCOUNTER 2021-11-15 20:19 | Inpatient (IN) | payer MEDICARE ==
[~2021-11-15] VITALS: Ht 160 cm; Wt 97.1 kg
[2021-11-15] MEDS ORDERED: SODIUM CHLORIDE 0.9% 1000ML 1,000 ML IV ONE ×2 (20:30→21:00)
[2021-11-15] MEDS ORDERED: ACETAMINOPHEN 325 MG TAB PO ONE (20:30)
[2021-11-15 20:42] LABS: BASOPHILS % 0.3 % (0.0-1.0); EOSINOPHILS # (AUTO) 0.1 (0.0-0.4); EOSINOPHILS % 1.2 % (0.0-6.0); HEMATOCRIT 44.6 % (38.2-49.6); HEMOGLOBIN 14.8 g/dL (14.0-18.0); LYMPHOCYTES # (AUTO) 1.7 (1.0-3.2); LYMPHOCYTES % 14.2 % (18.0-39.1); MEAN CORPUSCULAR HEMOGLOBIN 30.3 pg (28-32); MEAN CORPUSCULAR HGB CONC 33.2 g/dL (31-35); MEAN CORPUSCULAR VOLUME 91.4 fL (81-99); MONOCYTES # (AUTO) 1.2 (0.2-0.8); MONOCYTES % 10.2 % (4.4-11.3); NEUTROPHILS # (AUTO) 8.7 (2.1-6.9); NEUTROPHILS % 73.7 % (38.7-80.0); PLATELET COUNT 258 x10e3/uL (140-360); RED BLOOD COUNT 4.88 x10e6/uL (4.3-5.7); RED CELL DISTRIBUTION WIDTH 13.1 % (11.7-14.4)
[2021-11-15] MEDS: CEFEPIME 1 GM in SODIUM CHLORIDE 0.9% 50ML 50 ML IV SCH (20:44)
[2021-11-15 21:00] LABS: ALANINE AMINOTRANSFERASE < 6 IU/L (0-55); ALBUMIN 3.7 g/dL (3.5-5.0); ALKALINE PHOSPHATASE 85 IU/L (40-150); ANION GAP 13.9 mmol/L (8-16); BLOOD UREA NITROGEN 18 mg/dL (7-26); BUN/CREATININE RATIO 19 (6-25); CALCIUM 9.4 mg/dL (8.4-10.2); CARBON DIOXIDE 23 mmol/L (22-29); CHLORIDE 108 mmol/L (98-107); CREATINE KINASE 280 IU/L (30-200); CREATININE, SERUM 0.96 mg/dL (0.72-1.25); EST GLOMERULAR FILTRATION RATE 80 ML/MIN (60-); GLUCOSE 143 mg/dL (74-118); POTASSIUM 3.9 mmol/L (3.5-5.1); SODIUM 141 mmol/L (136-145)
[2021-11-15] MEDS: Vancomycin IV 1 GM in SODIUM CHLORIDE 0.9% 250ML 250 ML IV SCH (21:08)
[2021-11-15] MEDS ORDERED: SODIUM CHLORIDE 0.9% 1000ML 1,000 ML ONE (21:10)
[2021-11-15 21:46] LABS: CLARITY,URINE SL CLOUDY (CLEAR); COLOR,URINE AMBER (YELLOW); KETONES,URINE 2+ (NEGATIVE); LEUKOCYTE ESTERASE ,URINE TRACE (NEGATIVE); NITRITE,URINE POSITIVE (NEGATIVE); PROTEIN,URINE DIPSTICK 1+ (NEGATIVE); URINE UROBILINOGEN 0.2 mg/dL (0.2 - 1)
[2021-11-15 21:51] LABS: BACTERIA,URINE MODERATE /HPF
[2021-11-15] MEDS ORDERED: ACETAMINOPHEN 325 MG TAB PO PRN (22:00)
[2021-11-15] MEDS ORDERED: ONDANSETRON HCL INJ 2MG/ML 2ML 2 MG/ML VIAL IV PRN (22:00)
[2021-11-15 22:50] VITALS: BP 142/90
[2021-11-15] MEDS: SODIUM CHLORIDE 0.9% 1000ML 1,000 ML IV SCH (23:44)
[2021-11-15] MEDS ORDERED: LOSARTAN POTAS100 MG PO (23:48)
[2021-11-15] MEDS ORDERED: ROPINIROLE HCL1 MG PO (23:48)
[2021-11-15] MEDS ORDERED: AMLODIPINE BESYL5 MG PO (23:48)
[2021-11-15] MEDS ORDERED: RYTARY ER 61.21 EACH PO (23:48)
[2021-11-16] VITALS (11 sets, daily range): BP systolic 98–146; BP diastolic 56–97
[2021-11-16 00:49] LABS: CREATINE KINASE MB 10.8 ng/mL (0-5.0)
[2021-11-16] MEDS: RYTARY PO SCH ×4 (00:58→20:27)
[2021-11-16] MEDS: ACETAMINOPHEN/CODEINE 300MG - 30MG TAB PO PRN ×2 (00:58→12:01)
[2021-11-16 05:13] LABS: BASOPHILS % 0.2 % (0.0-1.0); EOSINOPHILS % 0.2 % (0.0-6.0); HEMATOCRIT 43.7 % (38.2-49.6); HEMOGLOBIN 14.8 g/dL (14.0-18.0); LYMPHOCYTES # (AUTO) 0.9 (1.0-3.2); LYMPHOCYTES % 6.4 % (18.0-39.1); MEAN CORPUSCULAR HEMOGLOBIN 30.3 pg (28-32); MEAN CORPUSCULAR HGB CONC 33.9 g/dL (31-35); MEAN CORPUSCULAR VOLUME 89.5 fL (81-99); MONOCYTES # (AUTO) 0.8 (0.2-0.8); NEUTROPHILS # (AUTO) 11.6 (2.1-6.9); NEUTROPHILS % 86.9 % (38.7-80.0); PLATELET COUNT 243 x10e3/uL (140-360); RED BLOOD COUNT 4.88 x10e6/uL (4.3-5.7); RED CELL DISTRIBUTION WIDTH 13.3 % (11.7-14.4)
[2021-11-16] MEDS: CEFEPIME 1 GM in SODIUM CHLORIDE 0.9% 50ML 50 ML IV SCH ×3 (05:17→22:38)
[2021-11-16] MEDS: SODIUM CHLORIDE 0.9% 1000ML 1,000 ML IV SCH ×3 (05:17→22:38)
[2021-11-16 05:55] LABS: ALBUMIN 3.3 g/dL (3.5-5.0); ALBUMIN/GLOBULIN RATIO 0.9 (0.8-2.0); ALKALINE PHOSPHATASE 81 IU/L (40-150); ANION GAP 10.1 mmol/L (8-16); BLOOD UREA NITROGEN 15 mg/dL (7-26); BUN/CREATININE RATIO 21 (6-25); CALCIUM 8.7 mg/dL (8.4-10.2); CARBON DIOXIDE 22 mmol/L (22-29); CHLORIDE 113 mmol/L (98-107); CREATININE, SERUM 0.72 mg/dL (0.72-1.25); EST GLOMERULAR FILTRATION RATE 111 ML/MIN (60-); GLUCOSE 121 mg/dL (74-118); POTASSIUM 4.1 mmol/L (3.5-5.1); SODIUM 141 mmol/L (136-145)
[2021-11-16 06:22] LABS: CREATINE KINASE MB 7.6 ng/mL (0-5.0)
[2021-11-16 06:41] LABS: ALANINE AMINOTRANSFERASE < 6 IU/L (0-55)
[2021-11-16] MEDS: Vancomycin IV 1 GM in SODIUM CHLORIDE 0.9% 250ML 250 ML IV SCH ×2 (07:55→20:27)
[2021-11-16] MEDS: LOSARTAN POTASSIUM 100 MG TAB PO SCH (10:46)
[2021-11-16] MEDS ORDERED: ONGENTYS50 MG (15:01)
[2021-11-16] MEDS: TRAMADOL HCL 50 MG TAB PO PRN (15:10)
[2021-11-16 16:49] LABS: CREATINE KINASE MB 7.8 ng/mL (0-5.0)
[2021-11-16] MEDS: NEOMYCIN/POLYMYXIN/BACITRACIN 15 GM TUBE TOP SCH (17:27)
[2021-11-16] MEDS: ONGENTYS PO SCH (20:27)
[2021-11-16] MEDS: ROPINIROLE HCL 1 MG TAB PO SCH (20:27)
[2021-11-16] MEDS ORDERED: HOME MEDICATION--PATIENTS OWN PO SCH (21:00)
[2021-11-17] VITALS (7 sets, daily range): BP systolic 130–155; BP diastolic 87–104
[2021-11-17] MEDS: TRAMADOL HCL 50 MG TAB PO PRN ×3 (01:27→15:15)
[2021-11-17] MEDS: CEFEPIME 1 GM in SODIUM CHLORIDE 0.9% 50ML 50 ML IV SCH ×3 (05:13→22:50)
[2021-11-17] MEDS: SODIUM CHLORIDE 0.9% 1000ML 1,000 ML IV SCH ×4 (05:13→22:11)
[2021-11-17] MEDS: Vancomycin IV 1 GM in SODIUM CHLORIDE 0.9% 250ML 250 ML IV SCH (08:52)
[2021-11-17] MEDS: AMLODIPINE BESYLATE 5 MG TAB PO SCH (08:52)
[2021-11-17] MEDS: NEOMYCIN/POLYMYXIN/BACITRACIN 15 GM TUBE TOP SCH ×2 (08:52→17:12)
[2021-11-17] MEDS: RYTARY PO SCH ×3 (08:52→20:30)
[2021-11-17] MEDS: LOSARTAN POTASSIUM 100 MG TAB PO SCH (08:52)
[2021-11-17] MEDS ORDERED: ROPINIROLE HCL 1 MG TAB PO SCH (09:00)
[2021-11-17 09:44] LABS: BASOPHILS % 0.2 % (0.0-1.0); EOSINOPHILS # (AUTO) 0.5 (0.0-0.4); HEMATOCRIT 41.2 % (38.2-49.6); HEMOGLOBIN 13.7 g/dL (14.0-18.0); LYMPHOCYTES # (AUTO) 1.8 (1.0-3.2); LYMPHOCYTES % 20.8 % (18.0-39.1); MEAN CORPUSCULAR HEMOGLOBIN 30.4 pg (28-32); MEAN CORPUSCULAR HGB CONC 33.3 g/dL (31-35); MEAN CORPUSCULAR VOLUME 91.6 fL (81-99); MONOCYTES # (AUTO) 0.7 (0.2-0.8); MONOCYTES % 8.1 % (4.4-11.3); NEUTROPHILS # (AUTO) 5.5 (2.1-6.9); NEUTROPHILS % 64.7 % (38.7-80.0); PLATELET COUNT 206 x10e3/uL (140-360); RED CELL DISTRIBUTION WIDTH 13.4 % (11.7-14.4)
[2021-11-17 10:15] LABS: ANION GAP 9.5 mmol/L (8-16); CALCIUM 8.3 mg/dL (8.4-10.2); CREATININE, SERUM 0.66 mg/dL (0.72-1.25); POTASSIUM 3.5 mmol/L (3.5-5.1)
[2021-11-17] MEDS ORDERED: ONDANSETRON HCL 4 MG ORAL DISINTEGRATING TAB PO PRN (11:30)
[2021-11-17] MEDS: ROPINIROLE HCL 1 MG TAB PO SCH (20:30)
[2021-11-17] MEDS: Vancomycin IV 1.25 GM in SODIUM CHLORIDE 0.9% 250ML 250 ML IV SCH (20:30)
[2021-11-17] MEDS: ONGENTYS PO SCH (20:30)
[2021-11-18] VITALS: BP_SYST 147; BP_SYST 172; BP_DIAS 113; BP_DIAS 96
[2021-11-18 00:55] VITALS: BP 167/104
[2021-11-18] MEDS ORDERED: METOPROLOL TARTRATE INJ 1 MG/ML VIAL IV PRN (01:00)
[2021-11-18] MEDS: SODIUM CHLORIDE 0.9% 1000ML 1,000 ML IV SCH (03:18)
[2021-11-18] MEDS: CEFEPIME 1 GM in SODIUM CHLORIDE 0.9% 50ML 50 ML IV SCH (06:00)
[2021-11-18 07:39] VITALS: BP 167/104
[2021-11-18 08:00] VITALS: BP 135/96
[2021-11-18] MEDS: RYTARY PO SCH (08:38)
[2021-11-18] MEDS: Vancomycin IV 1.25 GM in SODIUM CHLORIDE 0.9% 250ML 250 ML IV SCH (08:39)
[2021-11-18] MEDS: LOSARTAN POTASSIUM 100 MG TAB PO SCH (08:44)
[2021-11-18] MEDS: AMLODIPINE BESYLATE 5 MG TAB PO SCH (08:45)
[2021-11-18] MEDS: NEOMYCIN/POLYMYXIN/BACITRACIN 15 GM TUBE TOP SCH (08:46)
[2021-11-18] MEDS: TRAMADOL HCL 50 MG TAB PO PRN (09:39)
[2021-11-18] MEDS ORDERED: CLEOCIN HCL300 MG PO (09:47)
[2021-11-18] MEDS ORDERED: TRIPLE ANTIBIOT28 GM TOP (09:47)
[2021-11-18] MEDS ORDERED: CEPHALEXIN500 MG PO (09:47)
== END 2021-11-18 10:42 | disposition home or self-care (01) | DRG 872 ==
LOC: ER 20:49 → ERHOLD 21:53 → MED/SURG3 22:59
PROVIDERS: ADMIT Internal Medicine; ATTEND Internal Medicine
DX: A41.9 Sepsis, unspecified organism (principal); L03.221 Cellulitis of neck; M62.82 Rhabdomyolysis; N39.0 Urinary tract infection, site not specified; G20 Parkinson's disease; R65.20 Severe sepsis without septic shock; I10 Essential (primary) hypertension; E78.5 Hyperlipidemia, unspecified; Z86.73 Personal history of transient ischemic attack (TIA), and cerebral infarction without residual deficits; Z88.8 Allergy status to other drugs, medicaments and biological substances; Z20.822 Contact with and (suspected) exposure to COVID-19
CPT/HCPCS: 36415; 71045; 80048; 80053; 80202; 81001; 82550; 82553; 82948; 83605; 84484; 85025; 87040; 87086; 93005; 94799; 96361; 99251; 99284; J0692; J3370; J7030; J7050; U0002